=== PATIENT | female | born 1970 | race African-American/Black ===

== ENCOUNTER 2019-11-28 12:00 | Inpatient (IN) | payer OTHER ==
[~2019-11-28] VITALS: Ht 165.1 cm; Wt 80.1 kg
[2019-11-28] MEDS ORDERED: SODIUM CHLORIDE 0.9% 1000ML 1,000 ML IV SCH ×2 (12:30→13:30)
[2019-11-28] MEDS ORDERED: SODIUM CHLORIDE 0.9% 500ML 0 ML ONE (12:42)
[2019-11-28] MEDS ORDERED: ASPIRIN 81 MG CHEW TAB PO ONE (12:50)
[2019-11-28 12:56] LABS: STREPTOCOCCUS GRP A ANTIGEN NEGATIVE (NEGATIVE)
[2019-11-28 13:11] LABS: INFLUENZAE A&B ANTIGEN (RAPID) NEGATIVE (NEGATIVE)
--- NOTE | 2019-11-28 13:18 | NUR ---
incontinence care for stool and urine provided for patient.
[2019-11-28] MEDS ORDERED: AZITHROMYCIN 500MG/NS 250 ML 250 ML IV NR (13:30)
[2019-11-28 13:39] LABS: BASOPHILS # (AUTO) 0.1 (0.0-0.1); BASOPHILS % 0.5 % (0.0-1.0); EOSINOPHILS % 0.2 % (0.0-6.0); HEMOGLOBIN 10.8 g/dL (12.0-16.0); LYMPHOCYTES # (AUTO) 2.2 (1.0-3.2); LYMPHOCYTES % 13.2 % (18.0-39.1); MEAN CORPUSCULAR HEMOGLOBIN 24.7 pg (28-32); MEAN CORPUSCULAR HGB CONC 32.7 g/dL (31-35); MEAN CORPUSCULAR VOLUME 75.3 fL (81-99); MONOCYTES % 6.2 % (4.4-11.3); NEUTROPHILS % 79.3 % (38.7-80.0); PLATELET COUNT 505 x10e3/uL (140-360); RED BLOOD COUNT 4.38 x10e6/uL (3.6-5.1); RED CELL DISTRIBUTION WIDTH 25.7 % (11.7-14.4)
[2019-11-28 14:08] LABS: ANION GAP 20.7 mmol/L (8-16); CALCIUM 9.8 mg/dL (8.4-10.2); CREATININE, SERUM 5.48 mg/dL (0.57-1.11); POTASSIUM 5.7 mmol/L (3.5-5.1)
[2019-11-28] MEDS ORDERED: SODIUM CHLORIDE 0.9% 1000ML 1,000 ML IV STA ×4 (14:11→16:08)
[2019-11-28] MEDS ORDERED: SODIUM CHLORIDE 0.9% 1000ML 3,000 ML ONE (14:19)
[2019-11-28] MEDS: CEFTRIAXONE SOD 1 GM/NS 50 ML 50 ML IV NR (14:30)
[2019-11-28 14:34] LABS: CLARITY,URINE SL CLOUDY (CLEAR); COLOR,URINE YELLOW (YELLOW); KETONES,URINE NEGATIVE (NEGATIVE); LEUKOCYTE ESTERASE ,URINE NEGATIVE (NEGATIVE); NITRITE,URINE NEGATIVE (NEGATIVE); PROTEIN,URINE DIPSTICK 1+ (NEGATIVE)
[2019-11-28 14:35] LABS: BILIRUBIN,URINE NEGATIVE (NEGATIVE); URINE UROBILINOGEN 0.2 mg/dL (0.2 - 1)
[2019-11-28 14:41] LABS: BACTERIA,URINE RARE /HPF; EPITHELIAL CELLS,URINE FEW /LPF; RBC,URINE 0-5 /HPF (0-5); WBC,URINE (MAN) 0-5 /HPF (0-5)
--- NOTE | 2019-11-28 14:58 | Diagnostic Imaging Report ---
ADDENDUM #1 There is a left IJ central line with distal tip in SVC in appropriate position. Signed by: Bang Reyes MD on 11/28/2019 3:12 PM ORIGINAL REPORT EXAMINATION: CHEST SINGLE (PORTABLE) INDICATION: hypotension COMPARISON: None FINDINGS: AP view TUBES and LINES: Tracheostomy tube tube is in place. LUNGS/PLEURA: Lungs are well inflated. There is no evidence of pneumonia or pulmonary edema.. There is no pleural effusion or pneumothorax. HEART AND MEDIASTINUM: The cardiomediastinal silhouette is unremarkable. BONES AND SOFT TISSUES: No acute osseous lesion. Soft tissues are unremarkable. UPPER ABDOMEN: No free air under the diaphragm. IMPRESSION: No acute thoracic abnormality. Signed by: Bang Reyes MD on 11/28/2019 2:55 PM
[2019-11-28] MEDS ORDERED: CALCIUM GLUCONATE 10% INJ 4.65 MEQ in SODIUM CHLORIDE 0.9% 50ML 50 ML IV ONE (15:30)
[2019-11-28] MEDS ORDERED: ACETAMINOPHEN 650 MG SUPP PR NR (15:30)
--- NOTE | 2019-11-28 15:44 | NUR ---
Assessed to see if patient has still dry from last incontinence cleaning. Patient is still dry.
[2019-11-28] MEDS ORDERED: ACETAMINOPHEN325 M1 GT (16:26)
[2019-11-28] MEDS ORDERED: ASPIR 8181 MG GT (16:27)
[2019-11-28] MEDS ORDERED: ATORVASTATIN CA20 MG GT (16:28)
[2019-11-28] MEDS ORDERED: LISINOPRIL2.5 MG GT (16:30)
[2019-11-28] MEDS ORDERED: MILK OF MA2400 MG/10 GT (16:30)
[2019-11-28] MEDS ORDERED: HUMALOG100 UNIT/3 (16:33)
[2019-11-28] MEDS ORDERED: BISACODYL5 MG PO (16:33)
[2019-11-28 16:44] LABS: CREATINE KINASE MB 6.7 ng/mL (0-5.0)
[2019-11-28 16:49] LABS: ALBUMIN 2.3 g/dL (3.5-5.0); ALBUMIN/GLOBULIN RATIO 0.5 (0.8-2.0); CALCIUM 7.6 mg/dL (8.4-10.2); CREATININE, SERUM 4.65 mg/dL (0.57-1.11)
--- NOTE | 2019-11-28 18:14 | NUR ---
incontinence care of urine provided for patient. Patient also given fresh linens/gown.
[2019-11-28] MEDS ORDERED: SOD POLYSTYRENE SULFONATE SUSP 15 GM/60 ML BTL PO ONE (18:45)
--- NOTE | 2019-11-28 19:14 | NUR ---
report given to Esau CABEZAS
[2019-11-28] MEDS ORDERED: DEXTROSE 50% SYRINGE 50 ML IV PRN (20:45)
[2019-11-28] MEDS ORDERED: VANCOMYCIN 1GM/NS 250 ML 250 ML IV ONE (20:45)
[2019-11-28 21:00] VITALS: BP 109/74
[2019-11-28] MEDS ORDERED: ACETAMINOPHEN 325 MG TAB GT PRN (21:00)
[2019-11-28 21:15] VITALS: BP 109/74
[2019-11-28 21:30] VITALS: BP 90/41
[2019-11-28] MEDS ORDERED: CEFTRIAXONE SOD 1 GM/NS 50 ML 50 ML IV NR (21:30)
[2019-11-28 22:00] VITALS: BP 99/68
--- NOTE | 2019-11-28 22:32 | Consultation ---
DATE OF CONSULTATION: 11/28/2019 Pulmonary Medicine Consult REASON FOR REFERRAL: Impending organ dysfunction. HISTORY OF PRESENT ILLNESS: Ms. Manley is a 49-year-old female with evolving organ dysfunction. The patient presented to [facility] on November 28, 2019. The patient with altered mental status. The patient was having decreased responsiveness from baseline. There was hypotension that was reported and the patient with fever and possible diarrhea. The patient was brought to emergency room. In the emergency room, the patient was noted with findings including mild hypernatremia 154. Mild hyperkalemia 5.7. The patient with 16.4 white count, 33 hematocrit, 505 platelets. Creatinine 4.65 after recheck and improved from 5.5. Ferritin 1000. AST 232, ALT 407, CK 5416. Albumin 2.3. Blood pressure recently 73/49 in our facility, but after some fluid was improved. The patient at this point was placed on ventilator and consulted with evolving multiple organ dysfunction syndrome. PAST MEDICAL HISTORY: The patient with history of CVA and hemiparesis, PEG tube, tracheostomy, on tracheostomy collar. MEDICATIONS: Medication list reviewed per the chart record. ALLERGIES: NO KNOWN DRUG ALLERGIES. SOCIAL HISTORY: Unable to get, but no smoking, no drinking, no alcohol now. FAMILY HISTORY: Noncontributory to this syndrome. REVIEW OF SYSTEMS: Cannot get as she is altered. OBJECTIVE: VITAL SIGNS: The patient with 98.2 temperature, earlier was 101.7. Heart rate came down from 127 to 92. Respiratory rate 20. Blood pressure 104/87. GENERAL: Obtunded, now on ventilator. HEENT: Normocephalic, atraumatic. NECK: Supple. Tracheostomy in place. LUNGS: Bilateral air entry, limited. CARDIOVASCULAR: S1, S2. No murmurs, rubs, or gallops. ABDOMEN: Soft, nontender. EXTREMITIES: No clubbing. No cyanosis. There is no edema. INTEGUMENT: No rash or purpura. LABORATORY DATA: Labs reviewed per electronic record including urinalysis with no significant pyuria in it. Chest x-ray, clear lung boss reported. IMPRESSION AND PLAN: 1. Hypotension, severe sepsis existing prior to admission. 2. Acute renal failure. 3. Encephalopathy, toxic metabolic. 4. Underlying cerebrovascular accident and hemiparesis. Possible dementia. 5. Hyperlipidemia. 6. Hypertension. 7. Anemia. 8. Thrombocytosis: 9. Leukocytosis. 10. Hypernatremia. 11. Hyperkalemia, better. 12. Elevated LFTs. 13. Dysphagia, status post PEG tube. 14. Bztnn-xl-vxeekam respiratory failure, now on ventilator. 15. Tracheostomy status. 16. Severe hypoproteinemia. The patient was given ventilator due to workup breathing at 20/450/50/5. Continue tracheostomy in place. Check for etiology of presumed infection. Rule out viral etiologies. Rule out liver process. Resume tube feeds later when stable. We will give some IV fluids for the initial rhabdomyolysis. Check renal ultrasound. Empiric antibiotics. Greater than 30 minutes in direct care and coordination on this date. Multiple evaluation. Thank you very much, Dr. Portillo for this consult. Please call for questions. Vahe Frazier MD GMN/MODL /[id number]
[2019-11-28] MEDS: SODIUM CHLORIDE 0.9% 1000ML 1,000 ML IV SCH (22:38)
[2019-11-28] MEDS: HEPARIN SOD (PORCINE) 5,000 UNIT/ML VIAL SC SCH (22:45)
[2019-11-28] MEDS: CEFEPIME 1GM/NS 0.9% 50 ML 50 ML IV SCH (22:45)
[2019-11-28] MEDS: ATORVASTATIN 20 MG TAB GT SCH (22:45)
[2019-11-28 23:00] VITALS: BP 109/73
[2019-11-28] MEDS: INSULIN REGULAR, HUMAN 100 UNIT/1 ML 3ML VIAL SQ SCH (23:30)
[2019-11-29] VITALS (24 sets, daily range): BP systolic 93–151; BP diastolic 55–92
--- NOTE | 2019-11-29 00:12 | History and Physical ---
CHIEF COMPLAINT: Altered mental status, fever. HISTORY OF PRESENT ILLNESS: This is a 49-year-old female, who presented from a [facility] due to underlying fever and worsening condition. The patient is currently unresponsive and I am not sure if this is her baseline. Information being obtained is very limited that is only based on the ER and nursing staff. Apparently, the patient lives in a [facility], who apparently had a prior CVA and is on a trach. I do not know the patient's overall mental status. She did present to us with worsening tachypnea, tachycardia, and hypotensive. She is found to be febrile of 101.7. The patient was volume resuscitated, given fluid in the emergency room and had a central line placed and was sent to the ICU for further management and care. The patient was evaluated in the ICU. She is currently on the mechanical ventilator. REVIEW OF SYSTEMS: Unable to obtain. The patient is not responsive. ALLERGIES: NO KNOWN DRUG ALLERGIES. MEDICATIONS: Lisinopril, bisacodyl, insulin, aspirin, atorvastatin, and acetaminophen. PAST MEDICAL HISTORY: Able to be obtained, she has a history of CVA, she is on a trach. PAST SURGICAL HISTORY: We do know she has a tracheostomy. FAMILY HISTORY: Unknown. SOCIAL HISTORY: Unknown. She does live in a [facility]ci. PHYSICAL EXAMINATION: VITAL SIGNS: Temperature is 98.8, pulse is 106, respiratory rate is 15 on a mechanical ventilator, blood pressure is 99/60, pulse ox 100% on mechanical ventilator. GENERAL: Not in acute distress, alert and oriented x3. Cooperative on examination. She is currently on a mechanical ventilator. HEENT: Head is normocephalic, atraumatic. Eyes; pupils are equal, round, and reactive to light bilaterally. NECK: Supple. Good range of motion. Has tracheostomy. PULMONARY: Has a tracheostomy: On mechanical ventilator. CARDIOVASCULAR: Positive S1 and S2. No murmurs, rubs, or gallops appreciated. ABDOMEN: Soft, nondistended, nontender to palpation. Bowel sounds present. MUSCULOSKELETAL: Unable to assess. NEUROLOGIC: Unable to assess. SKIN: Intact. Warm to touch. Good cap refill. PSYCHIATRIC: Unable to assess. EXTREMITIES: No edema. Good range of motion throughout. LABORATORY DATA: Labs show white count was 16.3, hemoglobin 10.8, hematocrit 33, MCV 75, platelets of 505,000. Coagulation, PTT 26. D-dimer was 8.32. Chemistry; sodium 154, potassium 5, chloride 125, bicarbonate 19, anion gap of 15, BUN was 91, now 83, creatinine was 5.48, glucose is 125, lactic acid 1.7, calcium 7.6, ferritin is 1049. LFTs show total bilirubin was 0.3, AST 32, ALT 407, alkaline phosphatase 83. CK is , CK-MB is 0.70, troponin 0.506. Albumin was 2.3. Procalcitonin is pending. Urinalysis negative. Serologies, coronavirus and respiratory panel is all pending. MICROBIOLOGY: Blood cultures x2 ordered. IMAGING STUDIES: Chest x-ray is negative. IMPRESSION: 1. Acute on chronic respiratory failure with a tracheostomy, now on a mechanical ventilator. 2. Septic shock with hypotension and lactic acidosis, etiology unknown. 3. Acute kidney injury secondary to dehydration. 4. Hypernatremia secondary to volume depletion. 5. Rhabdomyolysis. PLAN: At this time, the patient is currently minimally responsive on sedation on a mechanical ventilator. Pulmonary Critical Care was consulted. She does have a central line, does not need any IV pressors at the current moment. She is on broad-spectrum IV antibiotic therapy. Blood cultures have been collected include UA, which seems to be negative. ID was consulted. As for her acute kidney injury, she has received several boluses of normal saline in the emergency room. We will continue with maintenance IV fluids, get repeat labs in the morning. Monitor renal function and electrolytes. As for hypernatremia, at this time we will continue with volume resuscitation with normal saline and if it stable tomorrow, we will consider adding D5W to correct the sodium. As for the rhabdomyolysis, her CK was found to be elevated. She is currently on aggressive IV fluid hydration. Repeat CK in the morning. We will also repeat other chemistries, Chem-14 and CBC in the morning as well as the CK level. She was found to have elevated D-dimer, but right now we are unable to perform a CTA of the chest and which we will go ahead and treat her with DVT prophylaxis and once her renal function improves they will be get a CTA of the chest. I did discuss this with Pulmonary. She does have mild elevation of troponin, but we will go ahead and downtrend it and monitor this very closely. Consultants; ID, pulmonary and Cardiology. MD MERISSA Goldsmith/NEGAR /[id number]
[2019-11-29] MEDS: SODIUM CHLORIDE 0.9% 1000ML 1,000 ML IV SCH (05:18)
[2019-11-29 05:21] LABS: BASOPHILS # (AUTO) 0.1 (0.0-0.1); BASOPHILS % 0.6 % (0.0-1.0); EOSINOPHILS # (AUTO) 0.2 (0.0-0.4); HEMATOCRIT 27.2 % (34.2-44.1); HEMOGLOBIN 8.5 g/dL (12.0-16.0); LYMPHOCYTES # (AUTO) 1.3 (1.0-3.2); LYMPHOCYTES % 8.8 % (18.0-39.1); MEAN CORPUSCULAR HEMOGLOBIN 23.9 pg (28-32); MEAN CORPUSCULAR HGB CONC 31.3 g/dL (31-35); MEAN CORPUSCULAR VOLUME 76.4 fL (81-99); MONOCYTES # (AUTO) 0.7 (0.2-0.8); MONOCYTES % 4.5 % (4.4-11.3); NEUTROPHILS # (AUTO) 12.9 (2.1-6.9); NEUTROPHILS % 84.6 % (38.7-80.0); PLATELET COUNT 331 x10e3/uL (140-360); RED BLOOD COUNT 3.56 x10e6/uL (3.6-5.1); RED CELL DISTRIBUTION WIDTH 25.6 % (11.7-14.4)
[2019-11-29 05:51] LABS: ALBUMIN 2.4 g/dL (3.5-5.0); ALBUMIN/GLOBULIN RATIO 0.5 (0.8-2.0); ANION GAP 15.4 mmol/L (8-16); CALCIUM 8.3 mg/dL (8.4-10.2); CREATININE, SERUM 2.22 mg/dL (0.57-1.11); POTASSIUM 4.4 mmol/L (3.5-5.1)
[2019-11-29] MEDS: INSULIN REGULAR, HUMAN 100 UNIT/1 ML 3ML VIAL SQ SCH ×3 (06:00→18:00)
[2019-11-29 06:24] LABS: MAGNESIUM 2.6 MG/DL (1.3-2.1); PHOSPHORUS 5.2 MG/DL (2.3-4.7)
[2019-11-29] MEDS ORDERED: SODIUM CHLORIDE 0.45% 1,000 ML ONE (06:51)
[2019-11-29] MEDS: SODIUM CHLORIDE 0.45% 1,000 ML IV SCH ×2 (07:23→18:13)
[2019-11-29 08:23] LABS: INR 1.28; PARTIAL THROMBOPLASTIN TIME 28.6 seconds (23.8-35.5); PROTHROMBIN TIME 16.8 seconds (11.9-14.5)
[2019-11-29 08:27] LABS: CREATINE KINASE MB 8.6 ng/mL (0-5.0)
[2019-11-29] MEDS: HEPARIN SOD (PORCINE) 5,000 UNIT/ML VIAL SC SCH ×2 (08:54→21:59)
[2019-11-29] MEDS: FAMOTIDINE 20 MG TAB PO SCH (09:00)
[2019-11-29] MEDS: ASPIRIN 81 MG CHEW TAB GT SCH (09:00)
--- NOTE | 2019-11-29 10:39 | Diagnostic Imaging Report ---
EXAMINATION: CHEST SINGLE (PORTABLE) INDICATION: ^chf ^[id number] ^[id number] COMPARISON: 11/28/2019 FINDINGS: AP view TUBES and LINES: Stable tracheostomy tube and left internal jugular central venous cancer. LUNGS: Lungs are well inflated. Mild central vascular congestion and interstitial edema. Mildly increased bibasilar subsegmental atelectasis. PLEURA: No pneumothorax. Suspected trace bilateral pleural effusions. HEART AND MEDIASTINUM: The cardiomediastinal silhouette is unremarkable. BONES AND SOFT TISSUES: No acute osseous lesion. Soft tissues are unremarkable. UPPER ABDOMEN: No free air under the diaphragm. IMPRESSION: Mild central pulmonary vascular congestion and mild interstitial edema. Suspected trace bilateral pleural effusions with adjacent mild compressive atelectasis. Signed by: Dr. Alvarado Rosario MD on 11/29/2019 10:36 AM
[2019-11-29] MEDS: CEFTRIAXONE SOD 1 GM/NS 50 ML 50 ML IV NR (12:34)
[2019-11-29] MEDS ORDERED: DEXTROSE 5% 1,000 ML IV SCH (13:45)
--- NOTE | 2019-11-29 13:45 | NUR ---
PATIENT RESIDES AT [facility] AT [facility]. SHE IS TRACH ON TRACH COLLAR AT FACILITY. SHE ARRIVED UNRESPONSIVE AND IS ON COVID-19 PRECAUTIONS. INFORMATION OBTAINED VIA MEDICAL HX. PATIENT IS SINGLE. HER PCP IS DR. Kristopher NULL
--- NOTE | 2019-11-29 14:21 | NUR ---
Pulmonary Medicine Jake cover DATE 11/29/2019 SUBJECTIVE: TRACHEOSTOMY IN PLACE STILL ON VENTILATOR 18/450/40/5 cxr with mild venous congestion, mostly clear UOP significant, Na increased to 162 REVIEW OF SYSTEMS: Cannot get as she is altered. OBJECTIVE: VITAL SIGNS: reviewed per EMR GENERAL: Obtunded, on ventilator. HEENT: Normocephalic, atraumatic. NECK: Supple. Tracheostomy in place. LUNGS: Bilateral air entry, limited. CARDIOVASCULAR: S1, S2. No murmurs, rubs, or gallops. ABDOMEN: Soft, nontender. EXTREMITIES: No clubbing. No cyanosis. no edema. INTEGUMENT: No rash or purpura. LABORATORY DATA: 162 NA,4.4 k, cr 2.22. wbc 15, hct 27, plt 331. Chest x-ray, clear lung boss reported. IMPRESSION AND PLAN: 1. Hypotension, severe sepsis existing prior to admission. 2. Acute renal failure. --evolving hypernatremia NOS. 3. Encephalopathy, toxic metabolic. 4. Underlying cerebrovascular accident and hemiparesis. Possible dementia. 5. Hyperlipidemia. 6. Hypertension. 7. Anemia. 8. Thrombocytosis 9. Leukocytosis. 10. Hypernatremia. 11. Hyperkalemia, better. 12. Elevated LFTs. 13. Dysphagia, status post PEG tube. 14. Tvabt-iz-vshqljv respiratory failure, now on ventilator. 15. Tracheostomy status. 16. Severe hypoproteinemia. Patient should continue ventilator for now. Consider weaning Serial electrolytes More water loading Neuro checks per designated. Follow up for etiology of presumed infection. Rule out viral etiologies. Rule out liver process. Resume tube feeds [id number] up rhabdomyolysis. get renal ultrasound. Empiric antibiotics.
--- NOTE | 2019-11-29 16:19 | Progress Note ---
DATE: 11/29/2019 SUBJECTIVE: The patient is still on the mechanical ventilator with her tracheostomy. She is on 22 L of oxygen. She is saturating at 100%. No changes overnight. Blood pressure is much improved. She was afebrile overnight. LABORATORY DATA: Labs show white count 15.2, hemoglobin 8.5, hematocrit 27.2, platelets of 331. Coagulation, PT 16, INR 1.28, PTT 28.6. D-dimer is 8.32. Sodium 162, potassium 4.4, chloride 129, bicarbonate 22, anion gap of 15, BUN is 71, creatinine is 2.22, glucose 104, calcium 8.3, phosphorus 5.2, magnesium 2.6, total bilirubin was 0.4. AST 257, ALT 370. CK still elevated at 8503, troponins down trended to 0.167. Albumin 2.4. Procalcitonin is pending. Urinalysis negative. Serologies, respiratory panel all of it is negative, but pending melendrez virus PCR. Microbiology none. IMAGING STUDIES: Chest x-ray this morning shows mild central pulmonary vascular congestion with mild interstitial edema, suspected trace bilateral pleural effusions with adjacent mild compressive atelectasis. PHYSICAL EXAMINATION: VITAL SIGNS: Temperature is 99.6, pulse 97, respiratory rate is 18, blood pressure is 102/57, pulse ox 100% on mechanical ventilator. GENERAL: She is currently sedated on mechanical ventilation HEENT: Head normocephalic, atraumatic. Eyes; pupils are round bilaterally. PULMONARY: She has a tracheostomy. Mechanical ventilation. Good inspiratory effort. No crackles. No rales. CARDIOVASCULAR: Positive S1, S2. No murmurs, rubs, or gallops. ABDOMEN: Soft, nondistended, nontender to palpation. Bowel sounds present. MUSCULOSKELETAL: Unable to assess. NEUROLOGICAL: Unable to assess. SKIN: Intact. Warm to touch. Good cap refill. PSYCHIATRIC: Unable to assess. EXTREMITIES: No edema. Good range of motion throughout. IMPRESSION: 1. Acute over chronic respiratory failure with tracheostomy, now on a mechanical ventilator. 2. Septic shock with hypotension, lactic acidosis, etiology unknown. 3. Acute kidney injury secondary to dehydration, now downtrending creatinine level. 4. Hypernatremia secondary to volume depletion. 5. Rhabdomyolysis. PLAN: At this time, the patient will maintain on a mechanical ventilator as well as on sedation, being managed by Pulmonary Critical Care. Continue with broad-spectrum IV antibiotic therapy. Monitor blood cultures and ID have been consulted. Renal function downtrending as well her electrolytes were stable except for the elevated sodium level of 162. Pulmonary Critical Care changed the fluids to half-normal saline. We will continue with half-normal saline for now and monitor the sodium level in the morning. The patient is still severely dehydrated, has good urine output, less likely to be DI, considering that her renal function is downtrending and good urine output noted. In terms of the rhabdomyolysis, CK still elevated. Continue with aggressive IV fluid hydration. She will need a CTA of the chest once her renal function improves. She is on DVT prophylaxis. Tube feeds for nutrition. CONSULTANTS INVOLVED: ID, Pulmonary and Cardiology. The patient is otherwise at baseline with no changes. We will transfer our services to Dr. Christian Castaneda as this is a patient at [facility], which I was not aware of prior to this admission. I did discuss this with Dr. Ames already as well. MD MERISSA Goldsmith/NEGAR /[id number]
--- NOTE | 2019-11-29 16:30 | Consultation ---
DATE OF CONSULTATION: HISTORY OF PRESENT ILLNESS: This is an unfortunate young 49-year-old female with a history of cerebrovascular accident, status post tracheostomy. The patient is a resident at [facility]. No family is at bedside and the patient is relatively unresponsive. Due to the concern for possible infection with coronavirus, physical examination was not performed. This was also used to preserve PPE. REVIEW OF SYSTEMS: Unable to be obtained. PAST MEDICAL HISTORY: 1. History of cerebrovascular accident. 2. Hyperlipidemia. 3. Hypertension. PAST SURGICAL HISTORY: Tracheostomy. FAMILY HISTORY: Unknown. SOCIAL HISTORY: Unknown. Lives in a correction. ALLERGIES: NO KNOWN DRUG ALLERGIES. MEDICATIONS: See medications reconciliation form. PHYSICAL EXAMINATION: VITAL SIGNS: Temperature is 99.6, heart rate is 103, respirations are 18, blood pressure is 138/86, O2 saturation is 100% on mechanical ventilation with a FiO2 rate of 20%. GENERAL: She is a chronically ill-appearing young woman, in no apparent distress, being mechanically ventilated via tracheostomy. LUNGS: Respirations appear symmetric. She is in no apparent distress. CARDIAC: Physical cardiopulmonary examination was not performed due to concern for the coronavirus and to preserve PPE. LABORATORY DATA: Reviewed. Troponin was minimally elevated at 0.537, has trended down to normal. Her CK is 8503, CK-MB is 8.6. Sodium 162, creatinine 2.2. AST is 217, ALT is 370. A 12-lead electrocardiogram impression telemetry monitoring shows sinus tachycardia. IMPRESSION: 1. Cerebrovascular accident, status post tracheostomy. 2. Acute respiratory failure with hypoxemia. 3. Sepsis. 4. Acute on chronic kidney disease. 5. History of hypertension. 6. Anemia. 7. Hypernatremia. 8. Rhabdomyolysis. 9. Acute on chronic liver disease. 10. Type 2 myocardial infarction. RECOMMENDATION: Rule out coronavirus. Continue sepsis treatment per primary team. Wean ventilatory settings. Obtain full history from family members. We will check an echocardiogram. I do not suspect acute coronary syndrome at this point in time. Once she improves, she may need an ischemic evaluation in the form of a stress test. Ranjan Brito DO BM/MODL /[id number]
[2019-11-29 16:40] LABS: CREATININE,URINE RANDOM 89.52 mg/dL (47-110)
--- NOTE | 2019-11-29 17:40 | Consultation ---
DATE OF CONSULTATION: REASON FOR CONSULTATION: Shortness of breath, cough, and fever. HISTORY OF PRESENT ILLNESS: This patient who is a 49-year-old female who is coming to us from [facility]. She does have history of CVA, hemiparesis, PEG tube placement, tracheostomy, very ill and chronically ill patient, comes in with cough, fever, and chills. Developmental status, there is no family to provide any further information, but history was taken mainly from the chart and also by reviewing the records from [facility]. The patient has been on ventilator for a prolonged time. She has a tracheostomy. She is alert, but noncommunicative. PAST MEDICAL HISTORY: As above. PAST SURGICAL HISTORY: As above. ALLERGIES: NKA. SOCIAL HISTORY: From senior living. FAMILY HISTORY: Could not be obtained. LABORATORY DATA: When she first came, she had a temperature of 101.7. There is none since then. Her cultures still pending. White count 15.25, hemoglobin 8. Sodium 162, potassium 4.4, creatinine of 2.2. When she first came, creatinine was 4.65. Liver enzyme was elevated 217. Respiratory panel is pending. Influenza A and B are negative. COVID-19 is still pending. The patient was started on ceftriaxone. She has received cefepime. Chest x-ray, which was done today shows pulmonary congestion, interstitial edema. PHYSICAL EXAMINATION: GENERAL: Alert, noncommunicative. VITAL SIGNS: Stable, currently afebrile. HEENT: She is not icteric. NECK: Supple. CHEST: A few crackles. HEART: S1 and S2. No murmur. ABDOMEN: Soft. Bowel sounds present. No tenderness. EXTREMITIES: No edema. SKIN: No rash. IMPRESSION: 1. Mobbk-gf-znwmuum respiratory failure. I think the patient probably has aspiration pneumonia with a component of fluid overload. a. Since we are in COVID-19 pandemic, we will check her. b. In the meantime, we will keep her on isolation. Since she has trach, we will do a negative pressure isolation. Recheck CBC. Recheck Chem panel. 2. Chronic kidney disease. 3. Complicated medical history: History of hypertension, history of toxic brain injury, history of cerebrovascular accident, history of hypertension, history of anemia, thrombocytopenia, elevated liver enzyme probably fluid overload, dysphagia status post PEG tube placement, status post tracheostomy, hyponatremia. Discussed with the medical team. We will follow with you. MD LEONEL Rodrigues/NEGAR /[id number]
[2019-11-29] MEDS: CEFEPIME 1GM/NS 0.9% 50 ML 50 ML IV SCH (21:56)
[2019-11-29] MEDS: ATORVASTATIN 20 MG TAB GT SCH (21:56)
[2019-11-30] VITALS (23 sets, daily range): BP systolic 111–163; BP diastolic 65–98
[2019-11-30] MEDS: SODIUM CHLORIDE 0.45% 1,000 ML IV SCH ×3 (02:14→23:30)
[2019-11-30 05:17] LABS: BASOPHILS # (AUTO) 0.1 (0.0-0.1); BASOPHILS % 0.8 % (0.0-1.0); EOSINOPHILS # (AUTO) 0.3 (0.0-0.4); HEMATOCRIT 25.3 % (34.2-44.1); HEMOGLOBIN 8.1 g/dL (12.0-16.0); LYMPHOCYTES # (AUTO) 2.1 (1.0-3.2); LYMPHOCYTES % 13.3 % (18.0-39.1); MEAN CORPUSCULAR VOLUME 75.1 fL (81-99); MONOCYTES # (AUTO) 0.9 (0.2-0.8); MONOCYTES % 5.7 % (4.4-11.3); NEUTROPHILS # (AUTO) 12.2 (2.1-6.9); NEUTROPHILS % 77.9 % (38.7-80.0); PLATELET COUNT 313 x10e3/uL (140-360); RED BLOOD COUNT 3.37 x10e6/uL (3.6-5.1); RED CELL DISTRIBUTION WIDTH 25.2 % (11.7-14.4)
[2019-11-30 05:38] LABS: ANION GAP 8.4 mmol/L (8-16); BLOOD UREA NITROGEN 44 mg/dL (7-26); BUN/CREATININE RATIO 43 (6-25); CALCIUM 8.4 mg/dL (8.4-10.2); CARBON DIOXIDE 24 mmol/L (22-29); CHLORIDE 129 mmol/L (98-107); CREATININE, SERUM 1.02 mg/dL (0.57-1.11); EST GLOMERULAR FILTRATION RATE > 60 ML/MIN (60-); GLUCOSE 95 mg/dL (74-118); POTASSIUM 3.4 mmol/L (3.5-5.1); SODIUM 158 mmol/L (136-145)
[2019-11-30] MEDS: INSULIN REGULAR, HUMAN 100 UNIT/1 ML 3ML VIAL SQ SCH ×4 (05:52→18:00)
[2019-11-30 07:53] LABS: CREATINE KINASE MB 1.6 ng/mL (0-5.0)
[2019-11-30] MEDS: HEPARIN SOD (PORCINE) 5,000 UNIT/ML VIAL SC SCH ×2 (09:00→21:00)
[2019-11-30] MEDS: ASPIRIN 81 MG CHEW TAB GT SCH (09:00)
[2019-11-30] MEDS: FAMOTIDINE 20 MG TAB PO SCH (09:00)
--- NOTE | 2019-11-30 15:01 | Diagnostic Imaging Report ---
Abdominal ultrasound. History: Abnormal LFTs. Comparison: None available. Discussion: Transverse and longitudinal images of the abdomen were obtained demonstrating a liver of increased size but normal echogenicity measuring 17.2 cm in length. The portal vein is patent with hepatopetal flow and is within normal limits measuring 5 mm in diameter. The biliary tree is within normal limits with the common bile duct measuring 5 mm in diameter. The gallbladder is contracted without evidence of stones, wall thickening, or pericholecystic fluid. The sonographic Martinez's sign was negative. Left kidney was not visible, obscured by overlying bowel gas. The right kidney is normal in size and echogenicity without evidence of hydronephrosis, stones, or mass. The right kidney measures 10.7 cm in length. The spleen is normal in size and appearance measuring 10.0 cm in length. The pancreatic head and body are visualized and are normal in appearance. The abdominal aorta and IVC are within normal limits. There is no evidence of free intra-abdominal fluid. Right pleural effusion is incidentally noted. IMPRESSION: 1. Mild hepatomegaly without focal hepatic abnormality. 2. Left kidney is not visible. Otherwise unremarkable abdominal ultrasound. Signed by: James Vo on 11/30/2019 2:57 PM
--- NOTE | 2019-11-30 15:41 | Progress Note ---
DATE: SUBJECTIVE: Ms. Manley remains in intensive care unit. A 49[facility]-old [facility], history of CVA, noncommunicative, hemiparesis, status post PEG tube, status post tracheostomy, comes in with fever, concerned about aspiration pneumonia on antibiotic, so far blood cultures are negative. LABORATORY DATA: Her white count is hovering around 15,000, hemoglobin 8.2. Her respiratory panel is negative. Influenza is negative. Her COVID-19 is still pending. Sodium 158, creatinine 1.02. IMPRESSION: I think, the patient with aspiration pneumonia continues. She is still having high white count. I am going to change her to meropenem 1 g q.8h. Discontinue cefepime. Continue with supportive care. Other medical problem, history of stroke, noncommunicative, history of trach, history of the feeding tube. We will follow. MD LEONEL Rodrigues/NEGAR /[id number]
[2019-11-30] MEDS ORDERED: MEROPENEM 1GM 100 ML IV SCH (17:00)
--- NOTE | 2019-11-30 17:09 | NUR ---
Nutrition Intervention Note RD Recommendation(s) for Physician: - Recommend TF change to Vital AF with goal rate of 55 ml/hr (to provide 1584 kcal and 99 gm protein). - Water flushes and fluid management per MD. Plan of Care: RD following, monitoring for tolerance and adequacy Nutrition reason for involvement: TF on admit RD Assessment 11/29: 49 YOF admitted from [facility] for chronic respiratory failure with chronic trach on vent and PEG on admit. Pt seen today per TF on admit. Pt currently on Jevity 1.2 at 20 ml/hr with 250 ml water flushes q 4 hrs 2/2 hypernatremia. Unable to obtain hx or complete malnutrition physical exam per current Covid PUI protocol. Called to speak with RN regarding TF rec's x 2, RN with pt. Chart reviewed. Will continue to monitor. Principal Problems/Diagnoses: chronic respiratory failure, kidney failure PMH: HTN, toxic brain injury, HTN, CVA, hemiparesis, + trach on vent, PEG GI: abd soft, non tender, + BS Skin: R buttock stage II PU Labs: 11/29: Na 158, K 3.4, BUN 44, Cr 1.02, Gluc 95, Ca 8.4 Meds: pepcid, lipitor, abx, insulin Ht: 65 in Wt: 167.19 lb BMI: 27.8 kg/m2 IBW: 125 lb Malnutrition Evaluation (11/30/19) The patient does not meet criteria for a specified degree of malnutrition at this time. Will re-evaluate at follow-up as appropriate. Unable to assess. Nutrition Prescription (Diet Order): Jevity 1.2 at 20 ml/hr Estimated Nutritional Needs: 7331-7262 calories/day (18-22 kcal/kg CBW) 91-137 g protein/day (1.2-1.8 g pro/kg CBW)- chronic trach on vent Diet Adequacy: Not meeting calorie needs, Not meeting protein needs Diet Tolerance: N/A Diet Education Needs Assessment: Diet education not indicated, pt TF dependant. Nutrition Care Level: moderate Nutrition Diagnosis: Inadequate energy and protein intake related to current TF regimen with PEG and trach on vent upon admit as evidenced by not meeting needs. Goal: Patient will meet 75-100% of estimated needs by follow up Progress: N/A Interventions: - Composition, Rate, Route, IVF, Prescription medications, Recommended Modifications, Collaboration with other providers Monitoring/Evaluation: -Total energy intake, Total protein intake, Formula/Solution, Prescription medication Signed: Katlin Nazario RD, LD, [facility]
--- NOTE | 2019-11-30 19:30 | NUR ---
Received patient hemodynamically stable
--- NOTE | 2019-11-30 20:13 | Consultation ---
DATE OF CONSULTATION: Critical Care Consultation REASON FOR CONSULT: ICU management. CHIEF COMPLAINT: Respiratory failure and shortness of breath. HISTORY OF PRESENT ILLNESS: Ms. Manley is a 49-year-old female, well known to me from [facility], as I have been seeing her at [facility]. She came in with decreased responsiveness, was hypotensive and fever. The patient was admitted for ruling out COVID. She was hypernatremic on admission with sodium of 158. The patient was started on IV hydration and ventilator support was continued. When she came in initially, her lactic acid has been normal since she has been here. Chest x-ray initially showed evidence of no acute pneumonia. When she came in, she had a fever of 101.8. REVIEW OF SYSTEMS: Unable to elicit any, as the patient is noncommunicative. PAST MEDICAL HISTORY: PEG tube, CVA, hemiparesis, tracheostomy, gastrostomy, noncommunicative. FAMILY AND SOCIAL HISTORY: Lives at residential. Unable to know whether she smokes or not. PHYSICAL EXAMINATION: VITAL SIGNS: Temperature 99.4, pulse of 106, blood pressure 163/89, T-max of 101.8. HEENT: Normocephalic. She is noncommunicative after tracheostomy. CHEST: Clear. HEART: S1 and S2 audible. ABDOMEN: Soft. EXTREMITIES: No pedal edema. LABORATORY DATA: Reviewed. ASSESSMENT/PLAN: Ms. Manley is a 49-year-old female, well known to me from [facility]. The patient is noncommunicative, has a trach and a PEG. She is vent-dependent, unable to be weaned, came in because of hypotension, likely due to dehydration. The patient's chest x-ray is not showing any evidence of pneumonia. She is not on any vasopressors. Her renal failure has improved. Current problems: 1. Acute kidney injury. 2. Hypernatremia. 3. Respiratory failure, chronic. 4. Possible tracheobronchitis, PEG tube status, history of stroke with hemiparesis. The patient is noncommunicative at baseline. PLAN: Continue the patient on antibiotics as recommended by ID consultants. COVID-19 has to be ruled out because of high-grade fever. Hypotension was due to dehydration. The patient is on IV hydration. Management of hypernatremia per Dr. Portillo. Thank you for this consult. Critical care time spent 45 minutes. MD GAURAV Sanchez/NEGAR /[id number]
[2019-11-30] MEDS: ATORVASTATIN 20 MG TAB GT SCH (21:00)
[2019-11-30] MEDS: MEROPENEM 1GM 100 ML IV SCH (21:00)
[2019-12-01] VITALS (25 sets, daily range): BP systolic 111–177; BP diastolic 61–104
--- NOTE | 2019-12-01 02:00 | NUR ---
Patient given a full bath, dirty linens changed
[2019-12-01] MEDS: SODIUM CHLORIDE 0.45% 1,000 ML IV SCH ×2 (02:13→10:43)
[2019-12-01] MEDS: MEROPENEM 1GM 100 ML IV SCH ×3 (05:17→21:00)
[2019-12-01] MEDS: INSULIN REGULAR, HUMAN 100 UNIT/1 ML 3ML VIAL SQ SCH ×4 (05:17→18:00)
[2019-12-01 05:35] LABS: BASOPHILS # (AUTO) 0.1 (0.0-0.1); BASOPHILS % 0.6 % (0.0-1.0); EOSINOPHILS # (AUTO) 0.2 (0.0-0.4); EOSINOPHILS % 2.6 % (0.0-6.0); HEMATOCRIT 23.9 % (34.2-44.1); HEMOGLOBIN 7.5 g/dL (12.0-16.0); LYMPHOCYTES # (AUTO) 1.6 (1.0-3.2); LYMPHOCYTES % 18.2 % (18.0-39.1); MEAN CORPUSCULAR HGB CONC 31.4 g/dL (31-35); MEAN CORPUSCULAR VOLUME 76.6 fL (81-99); MONOCYTES # (AUTO) 0.4 (0.2-0.8); NEUTROPHILS # (AUTO) 6.4 (2.1-6.9); NEUTROPHILS % 73.1 % (38.7-80.0); PLATELET COUNT 263 x10e3/uL (140-360); RED BLOOD COUNT 3.12 x10e6/uL (3.6-5.1); RED CELL DISTRIBUTION WIDTH 24.9 % (11.7-14.4)
[2019-12-01 06:00] LABS: ANION GAP 11.3 mmol/L (8-16); BLOOD UREA NITROGEN 28 mg/dL (7-26); BUN/CREATININE RATIO 39 (6-25); CALCIUM 8.5 mg/dL (8.4-10.2); CARBON DIOXIDE 24 mmol/L (22-29); CHLORIDE 123 mmol/L (98-107); CREATININE, SERUM 0.71 mg/dL (0.57-1.11); EST GLOMERULAR FILTRATION RATE > 60 ML/MIN (60-); GLUCOSE 104 mg/dL (74-118); POTASSIUM 3.3 mmol/L (3.5-5.1); SODIUM 155 mmol/L (136-145)
[2019-12-01 08:37] LABS: ANISOCYTOSIS MODERATE; EOSINOPHILS % (MANUAL) 1 % (0-7); LYMPHOCYTES % (MANUAL) 14 % (19-48); MICROCYTOSIS SLIGHT; MONOCYTES % (MANUAL) 3 % (3.4-9.0); NEUTROPHILS % (MANUAL) 82 % (40-74)
[2019-12-01 08:39] LABS: HYPOCHROMASIA SLIGHT; PLATELET ESTIMATE ADEQUATE; PLATELET MORPHOLOGY COMMENT NORMAL; RBC MORPHOLOGY COMMENT NORMAL
[2019-12-01] MEDS: FAMOTIDINE 20 MG TAB PO SCH (10:00)
[2019-12-01] MEDS: HEPARIN SOD (PORCINE) 5,000 UNIT/ML VIAL SC SCH ×2 (10:00→21:00)
[2019-12-01] MEDS: ASPIRIN 81 MG CHEW TAB GT SCH (10:00)
--- NOTE | 2019-12-01 14:59 | NUR ---
LAB RESULTS STILL NOT IN COMPUTER FOR COVID FINDINGS. UNABLE TO FAX CLINICALS WITHOUT THE RESULTS.
--- NOTE | 2019-12-01 15:16 | NUR ---
SPOKE WITH CHARLEY AT [facility] PT WAS RECEIVED FROM [facility] IN [place] FROM ANOTHER FACILITY 1 WEEK PRIOR TO SENDING HERE HER EMERGENCY CONTACT IS [facility] [phone]
--- NOTE | 2019-12-01 16:31 | Progress Note ---
DATE: SUBJECTIVE: Ms. Vineet Lagunas remains in intensive care unit comfortable. There are no new changes. Discussed with Pulmonary. REVIEW OF SYSTEMS: There is nothing new. The patient is noncommunicative, status post trach, status post PEG. Her blood cultures are negative. Her COVID-19 is still pending. Respiratory viral PCR is negative. PHYSICAL EXAMINATION: GENERAL: She is noncommunicative. VITAL SIGNS: Stable. Afebrile. HEENT: She is not icteric. NECK: Supple. CHEST: Few crackles. COR: ABDOMEN : Soft. IMPRESSION: Aspiration pneumonia, clinically getting better, on meropenem. PLAN: 1. Finish 7 days of IV antibiotic. 2. Acute kidney injury, resolved. Hyponatremia being corrected. 3. Respiratory failure, chronic. Continue with supportive care. We are waiting on COVID-19. MD LEONEL Rodrigues/MODL /[id number]
[2019-12-01] MEDS: ATORVASTATIN 20 MG TAB GT SCH (21:00)
--- NOTE | 2019-12-01 21:27 | Progress Note ---
DATE: 12/01/2019 Cardiology Progress Note SUBJECTIVE: No major events overnight. OBJECTIVE: VITAL SIGNS: Temperature 99.2, pulse 71, respiratory rate 18, blood pressure 122/72, saturating 100% on mechanical ventilation. GENERAL: Tracheostomy, non-communicative. CARDIOVASCULAR: Regular rate and rhythm. No murmurs, rubs, or gallops. LUNGS: Bilateral rhonchi. ABDOMEN: Soft, nontender, nondistended. NEURO AND PSYCH: The patient is unresponsive at baseline. INPATIENT MEDICATIONS: Reviewed. LABORATORY DATA: Reviewed. TELEMETRY DATA: Reviewed shows normal sinus rhythm. ASSESSMENT AND PLAN: 1. Cerebrovascular accident, status post trach and PEG. 2. Acute respiratory failure with hypoxemia. 3. Sepsis. 4. Acute on chronic kidney disease. 5. History of hypertension. 6. Anemia. 7. Hyponatremia. 8. Rhabdomyolysis. 9. Acute on chronic liver disease. 10. Type 2 myocardial infarction. RECOMMENDATIONS: Continue management of respiratory issues infection by primary team. Echocardiogram shows essentially normal LV function, mildly elevated troponin due to type 2 [place] in the setting of severe dehydration, hypertension, and metabolic issues in the setting of sepsis. Recommended an ischemic workup given poor baseline functional status and low likelihood of baseline CAD. Thank you for this consult. We will continue to follow. MD FELICIA Hurd/NEGAR /[id number]
[2019-12-02] VITALS (13 sets, daily range): BP systolic 123–177; BP diastolic 71–109
[2019-12-02] MEDS: MEROPENEM 1GM 100 ML IV SCH (05:00)
[2019-12-02 05:41] LABS: BASOPHILS % 0.5 % (0.0-1.0); EOSINOPHILS # (AUTO) 0.2 (0.0-0.4); EOSINOPHILS % 3.1 % (0.0-6.0); HEMATOCRIT 24.4 % (34.2-44.1); HEMOGLOBIN 7.8 g/dL (12.0-16.0); LYMPHOCYTES # (AUTO) 1.6 (1.0-3.2); LYMPHOCYTES % 20.7 % (18.0-39.1); MEAN CORPUSCULAR VOLUME 75.1 fL (81-99); MONOCYTES # (AUTO) 0.4 (0.2-0.8); MONOCYTES % 4.8 % (4.4-11.3); NEUTROPHILS # (AUTO) 5.4 (2.1-6.9); NEUTROPHILS % 70.5 % (38.7-80.0); PLATELET COUNT 291 x10e3/uL (140-360); RED BLOOD COUNT 3.25 x10e6/uL (3.6-5.1); RED CELL DISTRIBUTION WIDTH 24.2 % (11.7-14.4)
[2019-12-02 05:50] LABS: ANION GAP 10.4 mmol/L (8-16); BLOOD UREA NITROGEN 20 mg/dL (7-26); BUN/CREATININE RATIO 30 (6-25); CALCIUM 8.5 mg/dL (8.4-10.2); CARBON DIOXIDE 26 mmol/L (22-29); CHLORIDE 116 mmol/L (98-107); CREATININE, SERUM 0.67 mg/dL (0.57-1.11); EST GLOMERULAR FILTRATION RATE > 60 ML/MIN (60-); GLUCOSE 101 mg/dL (74-118); POTASSIUM 3.4 mmol/L (3.5-5.1); SODIUM 149 mmol/L (136-145)
[2019-12-02] MEDS: INSULIN REGULAR, HUMAN 100 UNIT/1 ML 3ML VIAL SQ SCH ×2 (06:00)
--- NOTE | 2019-12-02 08:05 | NUR ---
CALLED LAB TO SPEAK WITH ROBERT TO SEE ABOUT RESULTS, WAITING JEWEL BEARING TURNER BACK.
--- NOTE | 2019-12-02 08:50 | NUR ---
GOT RESULTS, FAXED TO FACILITY AND TEXTED TO MAKE SURE RECEIVING FAX. WILL UPDATE WHEN GET ROOM.
[2019-12-02 08:58] LABS: ANISOCYTOSIS MODERATE; MICROCYTOSIS SLIGHT; PLATELET ESTIMATE ADEQUATE; PLATELET MORPHOLOGY COMMENT NORMAL; POIKILOCYTOSIS SLIGHT
[2019-12-02 08:59] LABS: HYPOCHROMASIA SLIGHT; RBC MORPHOLOGY COMMENT NORMAL
[2019-12-02] MEDS: ASPIRIN 81 MG CHEW TAB GT SCH (09:36)
[2019-12-02] MEDS: FAMOTIDINE 20 MG TAB PO SCH (10:00)
[2019-12-02] MEDS: HEPARIN SOD (PORCINE) 5,000 UNIT/ML VIAL SC SCH (10:00)
--- NOTE | 2019-12-02 10:08 | NUR ---
LONGTERM FACILITY DISCHARGE INFORMATION PATIENT HAS BEEN ACCEPTED TO: NAME: [facility] ADDRESS:[id number] [place] ACCEPTING DIRECTOR OF ONLINE EDUCATION: TIM SULLIVAN MD: CHAKA ROOM:[address]B NURSE CALL REPORT TO: [phone] IMM SIGNED AND OBTAINED (if applicable): NA THE FOLLOWING DOCUMENTS MUST ACCOMPANY PATIENT FOR TRANSFER: COPIED CHART: PACKET
--- NOTE | 2019-12-02 10:45 | NUR ---
pt cv19 results back negative per dr cano. ok to trans back to [facility] lewis. report called to Alda JIMENEZ at [facility]. transportations called for transfer. pt vs stable.
[2019-12-02] MEDS ORDERED: POTASSIUM CHLORIDE 20MEQ/15ML UDC GT ONE (11:00)
--- NOTE | 2019-12-02 11:49 | Progress Note ---
DATE: SUBJECTIVE: Ms. Vineet Lagunas is about the same, remains in intensive care unit, noncommunicative. COVID-19 came back negative. OBJECTIVE: VITAL SIGNS: Her vitals remained stable, temperature 99. There was no fever. HEENT: Not icteric. NECK: Supple. CHEST: Few crackles. COR: S1, S2. No murmur. ABDOMEN: Soft. Bowel sounds present. No tenderness. No hepatosplenomegaly. EXTREMITIES: No edema. IMPRESSION: Aspiration pneumonia getting better on meropenem to finish 7 days. The patient will be transferred back to the skilled care facility. Aspiration precaution. Prognosis is extremely poor because of or underlying complicated medical history. Discussed with the medical team. MD LEONEL Rodrigues/NEGAR /[id number]
--- NOTE | 2019-12-02 12:07 | NUR ---
EMS HERE TO EM PHYSICIAN PT. REPORT GIVEN. RT IN RM TO HELP WITH VENT
--- NOTE | 2019-12-02 12:19 | NUR ---
PT LEAVING ICU VIA STRETCHER FOR [facility] WITH CARDIAC MONITORING AND VENTILATOR WITH EMS ESCORT
[2019-12-03] MEDS ORDERED: BALSAM PERU/CASTOR OIL 60 GM OINT...G. TP SCH (09:00)
--- NOTE | 2020-01-05 03:02 | Discharge Summary ---
CHIEF COMPLAINT: Altered mental status and fever. FINAL DIAGNOSES: Chronic respiratory failure, , acute kidney injury, anemia. DISPOSITION: Skilled facility. HOSPITAL COURSE: A 49-year-old female, retirement resident, presents to the ER due to underlying fever, worsening condition, currently unresponsive, prior history of CVA and is on trach, found to be febrile with temperature of 101.7, was worked up and evaluated in the emergency room and was given volume resuscitation. Central line was placed. She was upgraded to ICU status. She will be admitted to undergo treatment regarding [id number]-px-[id number] respiratory failure with tracheostomy, now on mechanical vent. Septic shock with hypotension and lactic acidosis, etiology unknown. Acute kidney injury secondary to dehydration, hypernatremia secondary to volume depletion, rhabdomyolysis. Consultants during her stay regarding her vent need along with impending organ dysfunction, she was being reviewed by Dr. Frazier and his impression was hypotension; severe sepsis, existing prior to admission; acute renal failure; encephalopathy, toxic metabolic; underlying cerebrovascular accident and hemiparesis, possible dementia; hyperlipidemia; hypertension; anemia; thrombocytosis; leukocytosis; hypernatremia; hyperkalemia; elevated LFTs; dysphagia, status post PEG placement; kzqzc-kk-znlmgib respiratory failure, now on vent; tracheostomy status; severe hypoproteinemia. Recommend continuing tracheostomy in place. Resume tube feedings when stable. We will be initiating some IV fluids for the initial rhabdomyolysis. Cardiac consult with Dr. Brito. His review reveals an impression of cerebrovascular accident, status post tracheostomy; acute respiratory failure with hypoxemia; sepsis; qkwxl-fx-rihbiyg kidney disease; history of hypertension; anemia; hypernatremia; rhabdomyolysis; gfcig-sc-anpxpin liver disease; type 2 [place]. He states that he does not suspect acute coronary syndrome at this point in time. Infectious Disease with Dr. Lopez regarding shortness of breath, cough, and fever. His impression was srpfo-zr-pxpkenq respiratory failure. The patient probably has aspiration pneumonia with component of fluid overload. Chronic kidney disease. With respiratory failure and shortness of breath, the patient was being seen by Dr. Joseph. His assessment was acute kidney injury; hypernatremia; respiratory failure, chronic; possible tracheobronchitis, PEG tube status, history of stroke with hemiparesis. The patient is noncommunicative at baseline. From the ER, the patient was placed in ICU. She was on tube feeding. Continued vent management. Antibiotics were initiated. She was also continuing on her routine daily medications. Laboratory studies were being watched further. Her vital signs were continued to be watched as well. COVID-19 results which are pending. She was given heparin subcu prophylactic. Her sodium continued to be running elevated with running issues with potassium as well. Anemia was also noted. She was taken off her IV Lasix. Noted that her septic shock resolved. Continued to have anemia issue. She reached her potential recovery here. She was cleared for discharge back to the SNF facility. She was released in stable, but guarded condition. IMAGING: Initial chest x-ray shows no acute thoracic abnormality. Abdomen ultrasound shows mild hepatomegaly without focal hepatic abnormality. Left kidney is not visible. Repeat chest x-ray shows mild central pulmonary vascular congestion and mild interstitial edema. Suspected trace bilateral pleural effusions with case of mild compressive atelectasis. LABORATORY DATA: Cultures; blood and flu were negative. Initial lab studies begins with a CBC showing white blood cell count starting at 16,300, H and H were 10.8 and 33.0. Followup white blood cell counts per patient returned to normal limits. H and H values fell to a final study of 7.8 and 24.4. Her coronavirus was negative. Her influenza studies were negative. Her urinalysis unremarkable. Chemistries, initial panel; sodium 154, potassium is 5.7, BUN 91, creatinine 5.48. Cardiac enzymes shows a CPK of 5200, CK2 of 6.00, troponin I of 0.537. Followup second set of cardiac enzymes; CPK high at 5416, CK2 high at 6.70, troponin was slightly lower at 0.506. Followup potassium was borderline at 5. Sodium was still elevated at 154. Kidney functions improved, BUN 83 and creatinine 4.65. Followup sodiums were up to 162. BUN continued to improved at 71, creatinine 2.22. Followup cardiac enzymes shows a CPK vilma up to 8636, CK2 of 8.60, troponin level was normal. Followup CPK 4410. Sodium at the time of transfer was 149, potassium of 3.4. Kidney function is stabilized with a BUN of 20, creatinine of 0.57, and glucose of 120. The patient will be returning back to the [facility] for continuation of management of care. She will continue on vent support. She will continue to receive her current medications. Activity level as directed by me. Followup care, I will be evaluating the patient daily at that facility. Staff will be contacting me as needed. Dictated by BARBARA Baker Christian Castaneda MD CC/MODL /[id number]
== END 2019-12-02 12:15 | DRG 871 ==
LOC: ER 12:00 → ERHOLD 14:19 → ICU 21:20
PROC: 5A1945Z Respiratory Ventilation, 24-96 Consecutive Hours (ICD-10-PCS; principal; 2019-11-28)
DX: A41.9 Sepsis, unspecified organism (principal); R65.21 Severe sepsis with septic shock; J96.20 Acute and chronic respiratory failure, unspecified whether with hypoxia or hypercapnia; G93.41 Metabolic encephalopathy; J69.0 Pneumonitis due to inhalation of food and vomit; N17.9 Acute kidney failure, unspecified; E87.0 Hyperosmolality and hypernatremia; M62.82 Rhabdomyolysis; E87.2 Acidosis; I69.359 Hemiplegia and hemiparesis following cerebral infarction affecting unspecified side; E86.0 Dehydration; E86.9 Volume depletion, unspecified; E77.8 Other disorders of glycoprotein metabolism; E87.5 Hyperkalemia; Z93.1 Gastrostomy status; D47.3 Essential (hemorrhagic) thrombocythemia; D64.9 Anemia, unspecified; R13.10 Dysphagia, unspecified
CPT/HCPCS: 36415; 36555; 71045; 76700; 80048; 80053; 81001; 82436; 82550; 82553; 82570; 82728; 82948; 83518; 83605; 83735; 84100; 84145; 84300; 84484; 85025; 85379; 85610; 85730; 87040; 87070; 87400; 87449; 87633; 87635; 93005; 94002; 94003; 99285; J0456; J0610; J0692; J0696; J1644; J3370; J7030; J7040

== ENCOUNTER 2020-02-22 18:12 | Emergency (ER) | payer OTHER ==
[~2020-02-22] VITALS: Ht 165.1 cm; Wt 64.9 kg
[~2020-02-22 18:12] MED LIST: ACETAMINOPHEN325 M1 GT; ASPIR 8181 MG GT; ATORVASTATIN CA20 MG GT; BISACODYL5 MG PO; HUMALOG100 UNIT/3; LISINOPRIL2.5 MG GT; MILK OF MA2400 MG/10 GT
[2020-02-22] MEDS ORDERED: SODIUM CHLORIDE 0.9% 1000ML 1,000 ML IV STA (18:28)
[2020-02-22] MEDS ORDERED: VANCOMYCIN 1GM/NS 250 ML 250 ML IV ONE (19:00)
--- NOTE | 2020-02-22 20:42 | Diagnostic Imaging Report ---
EXAMINATION: CHEST SINGLE (PORTABLE) INDICATION: ^EVAL VENT-ASSOC PNEUMONIA ^[id number] ^2004 COMPARISON: 11/29/2019 FINDINGS: AP view TUBES and LINES: Stable tracheostomy tube. Interval removal of left IJ central venous catheter. LUNGS: Interval development of patchy consolidation in the right perihilar region and right lower lobe, and in the left lung base. There is mild volume loss with elevation of the right hemidiaphragm. PLEURA: No pneumothorax. Trace bilateral pleural effusions, left greater the right. HEART AND MEDIASTINUM: The cardiomediastinal silhouette is unremarkable. BONES AND SOFT TISSUES: No acute osseous lesion. Soft tissues are unremarkable. UPPER ABDOMEN: No free air under the diaphragm. IMPRESSION: Findings suggestive of bilateral lower lobe pneumonia. Signed by: Dr. Roselia Souza M.D. on 02/22/2020 8:38 PM
[2020-02-22] MEDS: CEFEPIME 2 GM/NS 0.9% 100 ML 100 ML IV SCH (20:47)
[2020-02-22 20:53] LABS: BASOPHILS # (AUTO) 0.1 (0.0-0.1); BASOPHILS % 0.3 % (0.0-1.0); EOSINOPHILS # (AUTO) 0.9 (0.0-0.4); EOSINOPHILS % 4.8 % (0.0-6.0); HEMOGLOBIN 7.6 g/dL (12.0-16.0); LYMPHOCYTES % 10.6 % (18.0-39.1); MEAN CORPUSCULAR HEMOGLOBIN 26.3 pg (28-32); MEAN CORPUSCULAR HGB CONC 34.4 g/dL (31-35); MEAN CORPUSCULAR VOLUME 76.5 fL (81-99); MONOCYTES # (AUTO) 0.9 (0.2-0.8); MONOCYTES % 4.6 % (4.4-11.3); NEUTROPHILS # (AUTO) 14.7 (2.1-6.9); NEUTROPHILS % 79.1 % (38.7-80.0); PLATELET COUNT 762 x10e3/uL (140-360); RED BLOOD COUNT 2.89 x10e6/uL (3.6-5.1); RED CELL DISTRIBUTION WIDTH 17.5 % (11.7-14.4)
[2020-02-22 20:55] LABS: HEMATOCRIT 22.1 % (34.2-44.1)
[2020-02-22 21:02] LABS: INR 1.05; PROTHROMBIN TIME 14.3 seconds (11.9-14.5)
[2020-02-22 21:03] LABS: PARTIAL THROMBOPLASTIN TIME 28.5 seconds (23.8-35.5)
[2020-02-22 21:11] LABS: BILIRUBIN,URINE NEGATIVE (NEGATIVE); CLARITY,URINE TURBID (CLEAR); COLOR,URINE YELLOW (YELLOW); KETONES,URINE NEGATIVE (NEGATIVE); LEUKOCYTE ESTERASE ,URINE LARGE (NEGATIVE); NITRITE,URINE POSITIVE (NEGATIVE); PROTEIN,URINE DIPSTICK >=300 (NEGATIVE); URINE UROBILINOGEN 0.2 mg/dL (0.2 - 1)
[2020-02-22 21:12] LABS: ALANINE AMINOTRANSFERASE 39 IU/L (0-55); ALBUMIN 2.1 g/dL (3.5-5.0); ALBUMIN/GLOBULIN RATIO 0.3 (0.8-2.0); ALKALINE PHOSPHATASE 185 IU/L (40-150); ANION GAP 16.6 mmol/L (8-16); BLOOD UREA NITROGEN 116 mg/dL (7-26); BUN/CREATININE RATIO 20 (6-25); CALCIUM 11.7 mg/dL (8.4-10.2); CARBON DIOXIDE 23 mmol/L (22-29); CHLORIDE 98 mmol/L (98-107); CREATINE KINASE 25 IU/L (29-168); CREATININE, SERUM 5.82 mg/dL (0.57-1.11); EST GLOMERULAR FILTRATION RATE 9 ML/MIN (60-); GLUCOSE 99 mg/dL (74-118); MAGNESIUM 2.1 MG/DL (1.3-2.1); SODIUM 130 mmol/L (136-145)
[2020-02-22 21:18] LABS: POTASSIUM 7.6 mmol/L (3.5-5.1)
[2020-02-22 21:19] LABS: BACTERIA,URINE MANY /HPF; RBC,URINE 0-5 /HPF (0-5); TRIPLE PHOSPHATE CRYSTAL,UR FEW (FEW)
[2020-02-22 21:19] LABS: B-TYPE NATRIURETIC PEPTIDE2 13.2 pg/mL (0-100)
[2020-02-22] MEDS ORDERED: DEXTROSE 50% SYRINGE 50 ML IV STA (21:46)
[2020-02-22] MEDS ORDERED: INSULIN REGULAR, HUMAN 100 UNIT/1 ML 3ML VIAL IV ONE (22:00)
[2020-02-22] MEDS ORDERED: CALCIUM GLUCONATE 10% INJ 4.65 MEQ in SODIUM CHLORIDE 0.9% 50ML 50 ML IV ONE (22:00)
[2020-02-22] MEDS ORDERED: SOD POLYSTYRENE SULFONATE SUSP 15 GM/60 ML BTL PO ONE (22:00)
--- NOTE | 2020-02-22 22:29 | NUR ---
Transfer initiated at 2228, patient placed on a hold with, awaiting transfer to a inpatient ICU unit. Covid results are pending.
[2020-02-22] MEDS ORDERED: SODIUM BICARBONATE 8.4% INJ 50 ML SYR IV STA (23:34)
[2020-02-23] MEDS ORDERED: ACETAMINOPHEN 325 MG SUPP PR ONE (00:30)
--- NOTE | 2020-02-23 03:00 | NUR ---
Pt arrived with shields. Unknown last change date. Order obtained to change, removal of shields revealed it was approximately 2 inches into the urethra. At this time less that 30 mL output noted in drainage bag. New 16 Fr Shields inserted, sterile technique used. Upon insertion immediate return of 500 mL Purulent, Cloudy, Brownish/Greenish/Yellow Urine returned in drainage bag. ER notified. Sample sent to lab for UA and Urine Culture.
--- NOTE | 2020-02-23 03:45 | NUR ---
Pt arrived with RUE Midline in place. Midline observed to be in very poor condition. Tegaderm not intact and dated 02/04/2020. Foul odor and brownish discharge noted to be coming from line. Order obtained to remove line and send for culture of tip. Midline removed, area cleansed with CHG. Occlusive dressing applied. No distress or Vital Sign changes noted at this time.
[2020-02-23] MEDS ORDERED: SODIUM CHLORIDE 0.9% 1000ML 1,000 ML IV STA ×2 (04:18)
[2020-02-23 04:21] LABS: BASOPHILS # (AUTO) 0.1 (0.0-0.1); BASOPHILS % 0.4 % (0.0-1.0); EOSINOPHILS # (AUTO) 0.3 (0.0-0.4); EOSINOPHILS % 1.3 % (0.0-6.0); HEMOGLOBIN 7.8 g/dL (12.0-16.0); LYMPHOCYTES # (AUTO) 0.8 (1.0-3.2); MEAN CORPUSCULAR HEMOGLOBIN 26.1 pg (28-32); MEAN CORPUSCULAR HGB CONC 34.7 g/dL (31-35); MEAN CORPUSCULAR VOLUME 75.3 fL (81-99); MONOCYTES # (AUTO) 0.4 (0.2-0.8); MONOCYTES % 1.8 % (4.4-11.3); NEUTROPHILS # (AUTO) 18.5 (2.1-6.9); NEUTROPHILS % 91.5 % (38.7-80.0); PLATELET COUNT 742 x10e3/uL (140-360); RED BLOOD COUNT 2.99 x10e6/uL (3.6-5.1); RED CELL DISTRIBUTION WIDTH 17.4 % (11.7-14.4)
[2020-02-23 04:26] LABS: INR 1.11
[2020-02-23 04:29] LABS: HEMATOCRIT 22.5 % (34.2-44.1)
[2020-02-23 04:35] LABS: ALBUMIN/GLOBULIN RATIO 0.3 (0.8-2.0); ANION GAP 18.9 mmol/L (8-16); CALCIUM 11.8 mg/dL (8.4-10.2); CREATININE, SERUM 6.15 mg/dL (0.57-1.11)
[2020-02-23 04:37] LABS: POTASSIUM 7.9 mmol/L (3.5-5.1)
--- NOTE | 2020-02-23 04:38 | NUR ---
ER MD AND PRIMARY RN NOTIFIED AND AWARE OF CRITICAL LAB VALUE, POTASSIUM 7.9.
[2020-02-23] MEDS ORDERED: SODIUM BICARBONATE 8.4% SYRING 100 ML ONE (04:41)
[2020-02-23 04:42] LABS: CREATINE KINASE MB 4.7 ng/mL (0-5.0)
[2020-02-23 05:09] LABS: CLARITY,URINE CLOUDY (CLEAR); COLOR,URINE YELLOW (YELLOW)
[2020-02-23 05:10] LABS: BILIRUBIN,URINE NEGATIVE (NEGATIVE); KETONES,URINE NEGATIVE (NEGATIVE); LEUKOCYTE ESTERASE ,URINE 2+ (NEGATIVE); NITRITE,URINE POSITIVE (NEGATIVE); PROTEIN,URINE DIPSTICK 2+ (NEGATIVE); URINE UROBILINOGEN 0.2 mg/dL (0.2 - 1)
[2020-02-23 05:20] LABS: AMORPHOUS SEDIMENT,URINE MODERATE (FEW); BACTERIA,URINE MANY /HPF; EPITHELIAL CELLS,URINE FEW /LPF; WBC,URINE (MAN) >50 /HPF (0-5)
--- NOTE | 2020-02-23 05:31 | Diagnostic Imaging Report ---
EXAMINATION: CHEST SINGLE (PORTABLE) INDICATION: ^Y ^Trach to Vent ^[id number] ^0500 ^Y COMPARISON: 02/22/2020 FINDINGS: AP view TUBES and LINES: Unchanged tracheostomy tube. LUNGS: Mid to lower lung zone airspace opacities are increased. PLEURA: No pleural effusion or pneumothorax. HEART AND MEDIASTINUM: The cardiomediastinal silhouette is unremarkable. BONES AND SOFT TISSUES: No acute osseous lesion. Soft tissues are unremarkable. UPPER ABDOMEN: No free air under the diaphragm. IMPRESSION: Interval increase in bilateral pulmonary airspace opacities suggestive of worsening pneumonia/aspiration. Signed by: Norman Harris MD on 02/23/2020 5:28 AM
--- NOTE | 2020-02-23 05:33 | Diagnostic Imaging Report ---
EXAM: Abdomen Radiograph 1 View(s) INDICATION: ^Y ^Sacral Wound r/o Osteomyelitis ^[id number] ^0500 ^Y COMPARISON: None FINDINGS: The bowel gas pattern is nonspecific. No abnormal soft tissue No acute displaced fracture. No definite osseous erosion. No free intraperitoneal air. IMPRESSION: No discrete osseous erosion is identified. Of note, plain film radiography is insensitive for early pelvic osteomyelitis. A more sensitive imaging evaluation for osteomyelitis may be obtained with CT scan and/or MRI. Signed by: Norman Harris MD on 02/23/2020 5:29 AM
[2020-02-23] MEDS ORDERED: SODIUM CHLORIDE 0.9% 1000ML 1,000 ML ONE (06:11)
[2020-02-23] MEDS: CEFEPIME 2 GM/NS 0.9% 100 ML 100 ML IV SCH (06:55)
[2020-02-23] MEDS ORDERED: SOD POLYSTYRENE SULFONATE SUSP 15 GM/60 ML BTL PO ONE (07:01)
--- NOTE | 2020-02-23 07:11 | Emergency Department Note ---
History of Present Illnes History of Present Illness Chief Complaint: General Medicine Complaints History of Present Illness This is a 50 year old female unable to provide history given baseline tracheostomy, on vent dependence. Per [facility] records patient sent to the ED for change in behavior. 1 call in speaking to the nurse at facility patient appears to be at baseline mental status. Chief Complaint Comment brought in by EMS for abnormal labs. sending facility has noted no change in baseline mental status, fuctional state, behavior, respiratory, cardiovascular, Gi or . Historian: Acoustical Tile Drill Press Operator/EMS Arrival Mode: [facility] EMS Treatment PIPELINE CONSTRUCTION INSPECTOR: O2, EKG Onset quality: unable to specify Progression: unable to specify (JEMMA REBOLLEDO DO) Past Medical/Family History Physician Review I have reviewed the patient's past medical and family history. Any updates have been documented here. 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 Other Surgery: GASTROSTOMY TUBE TRACHEA (JEMMA REBOLLEDO DO) Social History Smoking Cessation: Former smoker Alcohol Use: None Any Illegal Drug Use: Yes (history of drug abuse) TB Exposure/Symptoms: No Physically hurt or threatened: No (JEMMA REBOLLEDO DO) Family History Family history of heart diseas: No (JEMMA REBOLLEDO DO) Other Last Tetanus: unknown Any Pre-Existing Lines (PICC,: Yes (right sided PICC line) Is patient up to date on immun: Yes Last Flu: unknown Last Pneumovax: unknown (JEMMA REBOLLEDO DO) Review of Systems ROS Narrative Unable to obtain ROS: Unable to obtain due to, altered mental status, other (trach/vent patient) (JEMMA REBOLLEDO DO) Review of Systems Constitutional: Reports no symptoms EENTM: Reports no symptoms Cardiovascular: Reports no symptoms Respiratory: Reports no symptoms Gastrointestinal: Reports no symptoms Genitourinary: Reports no symptoms Musculoskeletal: Reports no symptoms Integumentary: Reports no symptoms Neurological: Reports no symptoms Psychological: Reports no symptoms Endocrine: Reports no symptoms Hematological/Lymphatic: Reports no symptoms (JEMMA REBOLLEDO DO) Physical Exam Related Data Allergies: Coded Allergies: No Known Allergies (Unverified , 11/28/19) Triage Vital Signs Vital Signs Date Time Temp Pulse Resp B/P (MAP) Pulse Ox O2 Delivery O2 Flow Rate FiO2 02/22/20 18:45 118 32 100 32.0 02/22/20 18:45 98.8 153/76 Vital signs reviewed: Yes (JEMMA REBOLLEDO, ) Physical Exam CONSTITUTIONAL Constitutional: Present well-developed, Present ill appearing HENT HENT: Present normocephalic, Present atraumatic, Present oropharynx clear/[place] st, Present nose normal HENT L/R: Present left ext ear normal, Present right ext ear normal EYES Eyes: Reports PERRL, Reports conjunctivae normal NECK Neck: Present ROM normal PULMONARY Pulmonary: Present effort normal, Present respiratory distress CARDIOVASCULAR Cardiovascular: Present regular rhythm, Present irregular rhythm, Present normal rate GASTROINTESTINAL Abdominal: Present soft, Present nontender, Present bowel sounds normal GENITOURINARY Genitourinary: Present exam deferred SKIN Skin: Present dry MUSCULOSKELETAL Musculoskeletal: Present ROM normal NEUROLOGICAL Neurological: Present other (wasted upper and lower extremities) PSYCHOLOGICAL (JEMMA REBOLLEDO, ) Results Laboratory Result Diagram: 02/23/20 0300 02/23/20 0300 Laboratory Laboratory Tests Test 02/23/20 03:30 02/23/20 03:00 02/23/20 00:00 02/22/20 20:49 Urine Color Yellow (YELLOW) Yellow (YELLOW) Urine Clarity Cloudy (CLEAR) Turbid (CLEAR) Urine pH 8.5 (5 - 7) 9 (5 - 7) Urine Specific [place] 1.020 (1.010-1.025) 1.010 (1.010-1.025) Urine Protein 2+ (NEGATIVE) >=300 (NEGATIVE) Urine Glucose (UA) Negative (NEGATIVE) Negative (NEGATIVE) Urine Ketones Negative (NEGATIVE) Negative (NEGATIVE) Urine Blood 3+ (NEGATIVE) Trace (NEGATIVE) Urine Nitrite Positive (NEGATIVE) Positive (NEGATIVE) Urine Bilirubin Negative (NEGATIVE) Negative (NEGATIVE) Urine Urobilinogen 0.2 mg/dL (0.2 - 1) 0.2 mg/dL (0.2 - 1) Urine Leukocyte Esterase 2+ (NEGATIVE) Large (NEGATIVE) Urine RBC 6-10 /HPF (0-5) 0-5 /HPF (0-5) Urine WBC >50 /HPF (0-5) 6-10 /HPF (0-5) Urine Epithelial Cells Few /LPF (NONE) None /LPF (NONE) Urine Amorphous Sediment Moderate (FEW) Urine Bacteria Many /HPF (NONE) Many /HPF (NONE) White Blood Count 20.17 x10e3/uL (4.8-10.8) Red Blood Count 2.99 x10e6/uL (3.6-5.1) Hemoglobin 7.8 g/dL (12.0-16.0) Hematocrit 22.5 % (34.2-44.1) Mean Corpuscular Volume 75.3 fL (81-99) Mean Corpuscular Hemoglobin 26.1 pg (28-32) Mean Corpuscular Hemoglobin Concent 34.7 g/dL (31-35) Red Cell Distribution Width 17.4 % (11.7-14.4) Platelet Count 742 x10e3/uL (140-360) Neutrophils (%) (Auto) 91.5 % (38.7-80.0) Lymphocytes (%) (Auto) 4.0 % (18.0-39.1) Monocytes (%) (Auto) 1.8 % (4.4-11.3) Eosinophils (%) (Auto) 1.3 % (0.0-6.0) Basophils (%) (Auto) 0.4 % (0.0-1.0) Neutrophils # (Auto) 18.5 (2.1-6.9) Lymphocytes # (Auto) 0.8 (1.0-3.2) Monocytes # (Auto) 0.4 (0.2-0.8) Eosinophils # (Auto) 0.3 (0.0-0.4) Basophils # (Auto) 0.1 (0.0-0.1) Absolute Immature Granulocyte (auto 0.20 x10e3/uL (0-0.1) Prothrombin Time 15.0 seconds (11.9-14.5) Prothromb Time International Ratio 1.11 Activated Partial Thromboplast Time 31.0 seconds (23.8-35.5) Sodium Level 130 mmol/L (136-145) Potassium Level 7.9 mmol/L (3.5-5.1) Chloride Level 100 mmol/L (98-107) Carbon Dioxide Level 19 mmol/L (22-29) Anion Gap 18.9 mmol/L (8-16) Blood Urea Nitrogen 119 mg/dL (7-26) Creatinine 6.15 mg/dL (0.57-1.11) Estimat Glomerular Filtration Rate 9 ML/MIN (60-) BUN/Creatinine Ratio 19 (6-25) Glucose Level 74 mg/dL (74-118) Calcium Level 11.8 mg/dL (8.4-10.2) Total Bilirubin 0.4 mg/dL (0.2-1.2) Aspartate Amino Transf (AST/SGOT) 70 IU/L (5-34) Alanine Aminotransferase (ALT/SGPT) 84 IU/L (0-55) Alkaline Phosphatase 335 IU/L (40-150) Creatine Kinase 32 IU/L (29-168) Creatine Kinase MB 4.70 ng/mL (0-5.0) Troponin I 0.030 ng/mL (0-0.300) Total Protein 9.1 g/dL (6.5-8.1) Albumin 2.0 g/dL (3.5-5.0) Globulin 7.1 g/dL (2.3-3.5) Albumin/Globulin Ratio 0.3 (0.8-2.0) Urine Triple Phosphate Crystals Few (FEW) Test 02/22/20 20:25 02/22/20 19:56 White Blood Count 18.62 x10e3/uL (4.8-10.8) Red Blood Count 2.89 x10e6/uL (3.6-5.1) Hemoglobin 7.6 g/dL (12.0-16.0) Hematocrit 22.1 % (34.2-44.1) Mean Corpuscular Volume 76.5 fL (81-99) Mean Corpuscular Hemoglobin 26.3 pg (28-32) Mean Corpuscular Hemoglobin Concent 34.4 g/dL (31-35) Red Cell Distribution Width 17.5 % (11.7-14.4) Platelet Count 762 x10e3/uL (140-360) Neutrophils (%) (Auto) 79.1 % (38.7-80.0) Lymphocytes (%) (Auto) 10.6 % (18.0-39.1) Monocytes (%) (Auto) 4.6 % (4.4-11.3) Eosinophils (%) (Auto) 4.8 % (0.0-6.0) Basophils (%) (Auto) 0.3 % (0.0-1.0) Neutrophils # (Auto) 14.7 (2.1-6.9) Lymphocytes # (Auto) 2.0 (1.0-3.2) Monocytes # (Auto) 0.9 (0.2-0.8) Eosinophils # (Auto) 0.9 (0.0-0.4) Basophils # (Auto) 0.1 (0.0-0.1) Absolute Immature Granulocyte (auto 0.11 x10e3/uL (0-0.1) Prothrombin Time 14.3 seconds (11.9-14.5) Prothromb Time International Ratio 1.05 Activated Partial Thromboplast Time 28.5 seconds (23.8-35.5) Sodium Level 130 mmol/L (136-145) Potassium Level 7.6 mmol/L (3.5-5.1) Chloride Level 98 mmol/L (98-107) Carbon Dioxide Level 23 mmol/L (22-29) Anion Gap 16.6 mmol/L (8-16) Blood Urea Nitrogen 116 mg/dL (7-26) Creatinine 5.82 mg/dL (0.57-1.11) Estimat Glomerular Filtration Rate 9 ML/MIN (60-) BUN/Creatinine Ratio 20 (6-25) Glucose Level 99 mg/dL (74-118) Lactic Acid Level 0.9 mmol/L (0.5-2.0) Calcium Level 11.7 mg/dL (8.4-10.2) Magnesium Level 2.1 MG/DL (1.3-2.1) Total Bilirubin 0.2 mg/dL (0.2-1.2) Aspartate Amino Transf (AST/SGOT) 34 IU/L (5-34) Alanine Aminotransferase (ALT/SGPT) 39 IU/L (0-55) Alkaline Phosphatase 185 IU/L (40-150) Creatine Kinase 25 IU/L (29-168) Creatine Kinase MB 1.20 ng/mL (0-5.0) Troponin I < 0.001 ng/mL (0-0.300) B-Type Natriuretic Peptide 13.2 pg/mL (0-100) Total Protein 9.1 g/dL (6.5-8.1) Albumin 2.1 g/dL (3.5-5.0) Globulin 7.0 g/dL (2.3-3.5) Albumin/Globulin Ratio 0.3 (0.8-2.0) (JEMMA REBOLLEDO DO) Procedures 12 Lead ECG Interpretation ECG Interpretation : ECG: ECG 1 Cobol Developer: Interpreted by ED physician Prior ECG tracings: reviewed Rhythm: sinus tachycardia Rate: tachycardia QRS axis: normal ST segments normal: Yes T waves normal: Yes Clinical Impression: abnormal ECG (JEMMA REBOLLEDO DO) Critical Care Time Total Critical Care Time (min): 125 Critical care time exclusive o: separately billable procedures (JEMMA REBOLLEDO DO) Assessment & Plan Assessment & Plan Final Impression: (1) Hyperkalemia (2) UTI (urinary tract infection) (3) Sepsis (4) Renal failure (TIM LAEJANDRE DO) Depart Disposition: TRANS TO OTHER [facility] Last Vital Signs Date Time Temp Pulse Resp B/P (MAP) Pulse Ox O2 Delivery O2 Flow Rate FiO2 02/23/20 04:00 101.5 130 27 100/58 100 02/22/20 23:55 40.0 (JEMMA REBOLLEDO DO) Home Meds Reported Medications Insulin Lispro (HUMALOG) 100 Unit/1 Ml Insuln.pen 11/28/19 Bisacodyl (BISACODYL) 5 Mg Tablet.dr, 10 MG PO DAILY for constipation , TAB 11/28/19 Magnesium Hydroxide (MILK OF MAGNESIA) 2,400 Mg/10 Ml Oral.susp, 30 ML GT DAILY 11/28/19 Lisinopril (LISINOPRIL) 2.5 Mg Tablet, 2.5 MG GT Q12H PRN for ELEVATED BLOOD PRESSURE, #30 TAB 11/28/19 Atorvastatin Calcium (ATORVASTATIN CALCIUM) 20 Mg Tablet, 40 MG GT HS, #30 TAB 11/28/19 Aspirin (ASPIR 81) 81 Mg Tablet.dr, 81 MG GT DAILY for blood thinner 11/28/19 Acetaminophen (ACETAMINOPHEN) 325 Mg Tablet, 650 MG GT Q4HR PRN for BREAKTHROUGH PAIN for 5 Days, TAB 11/28/19 Medications in the ED Sodium Chloride 1,000 ml @ 0 mls/hr Q0M STAT IV Last administered on 02/22/20at 20:46; Admin Dose 1,000 MLS/HR; Start 02/22/20 at 18:28; Stop 02/22/20 at 18:31; Status DC Cefepime HCl 100 ml @ 200 mls/hr Q12H IV Last administered on 02/22/20at 20:47; Admin Dose 200 MLS/HR; Start 02/22/20 at 18:30; Stop 02/29/20 at 18:29 Vancomycin HCl 250 ml @ 167 mls/hr NOW ONCE IV Last administered on 02/22/20at 21:50; Admin Dose 167 MLS/HR; Start 02/22/20 at 19:00; Stop 02/22/20 at 20:29; Status DC Sodium Polystyrene Sulfonate 30 gm ONCE ONCE PO Last administered on 02/22/20at 22:15; Admin Dose 30 GM; Start 02/22/20 at 22:00; Stop 02/22/20 at 22:12; [facility] DC Calcium Gluconate 4.65 meq/Sodium Chloride 60 ml @ 60 mls/hr ONCE ONCE IV Last administered on 02/22/20at 22:00; Admin Dose 60 MLS/HR; Start 02/22/20 at 22:00; Stop 02/22/20 at 22:59; Status DC Dextrose 50 ml NOW STAT IV Last administered on 02/22/20at 22:15; Admin Dose 50 ML; Start 02/22/20 at 21:46; Stop 02/22/20 at 21:55; Status DC Insulin Human Regular 10 unit ONCE ONCE IV Last administered on 02/22/20at 22:15; Admin Dose 10 UNIT; Start 02/22/20 at 22:00; Stop 02/22/20 at 22:12; Status DC Sodium Bicarbonate 100 ml NOW STAT IV Last administered on 02/23/20at 04:45; Admin Dose 100 ML; Start 02/22/20 at 23:34; Stop 02/22/20 at 23:35; Status DC Azithromycin 250 ml @ 200 mls/hr DAILY IV ; Start 02/23/20 at 09:00; Stop 03/01/20 at 08:59 Acetaminophen 650 mg ONCE ONCE [place] Last administered on 02/23/20at 03:10; Admin Dose 650 MG; Start 6/30/20 at 00:30; Stop 02/23/20 at 00:45; Status DC Sodium Chloride 1,000 ml @ 0 mls/hr Q0M STAT IV Last administered on 02/23/20at 04:45; Admin Dose 999 MLS/HR; Start 02/23/20 at 04:18; Stop 02/23/20 at 04:20; Status DC Sodium Chloride 1,000 ml @ 0 mls/hr Q0M STAT IV Last administered on 02/23/20at 04:45; Admin Dose 999 MLS/HR; Start 02/23/20 at 04:18; Stop 02/23/20 at 04:20; Status DC Sodium Bicarbonate 100 ml @ ud STK-MED ONCE .ROUTE ; Start 02/23/20 at 04:41; Stop 02/23/20 at 04:36; Status DC Sodium Polystyrene Sulfonate 30 gm ONCE ONCE PO ; Start 02/23/20 at 07:01; Stop 02/23/20 at 07:02 Sodium Chloride 1,000 ml @ ud STK-MED ONCE .ROUTE ; Start 02/23/20 at 06:11; Stop 02/23/20 at 06:05; Status DC (JEMMA REBOLLEDO DO) Physician Attestation Provider Attestation S/W Dr Quezada at 1358 02/23/20 at [facility] for admission to the ICU. Labs reviewed. Potassium repeated with downward trend (TIM ALEJANDRE DO) JEMMA REBOLLEDO DO Feb 23, 2020 07:10 TIM ALEJANDRE DO Feb 23, 2020 13:59
[2020-02-23] MEDS ORDERED: AZITHROMYCIN 500MG/NS 250 ML 250 ML IV SCH (09:00)
--- NOTE | 2020-02-23 12:43 | NUR ---
Contacted [facility] transfer center to check on status of transfer. Spoke to video tape transferrer stated [facility] is handling the transfer also stated we are just waiting on an accepting physician and doc to doc. Will contact [facility] [phone].
--- NOTE | 2020-02-23 13:07 | NUR ---
Called [facility] transfer center to check on status of transfer, spoke to Rosana-fleet coordinator, stated they needed more info on pt- info provided, stated will contact a physician to provide acceptance and do doc to doc.
--- NOTE | 2020-02-23 13:36 | NUR ---
WOUND CARE CONSULT FOR 50 YO FEMALE HX OF SACRAL STAGE 4 ULCERATION JOSEPH 10 ON STRICT PUP STATUS AND INTERVENTIONS AND ER STRETCHER LABS: WBC-20.17 HGB_7.8 GLUCOSE-74 SKIN ASSESSMENT COMPLETE PATIENT PRESENTS WITH SACRAL STAGE 4 ULCERATION 2HGD1GS X3CM UNDERMINING AT 3OCLOCK 3CM AND 6OCLOCK 3CM EXPOSED BONE TO BASE OF WOUND RIGHT KNEE PARTIAL THICKNESS SKIN TEAR 2.5CM X3CM X0.1 CM LEFT HEEL UNSTAGEABLE ULCERATION 1CM X1CM YELLOW /BROWN SLOUGH COVER MINIMAL DRAINAGE RECOMMENDATIONS: NURSING TO CONTINUE TO MAINTAIN STRICT PUP STATUS AND INTERVENTIONS AND PLACE ON ALTERNATING PRESSURE MATTRESS NURSING TO CONTINUE TO ASSIST PATIENT OUT OF BED FOR MEALS AND MUCH TOLERATED NURSING TO CONTINUE TO ASSIST PATIENT NEEDED WITH MEALS AND NUTRITIONAL SUPPLEMENTS TO ENSURE PROPER REQUIREMENTS FOR HEALING NURSING TO CONTINUE TO OFFLOAD FEET AND HEELS NEEDED WITH PILLOW SUSPENSION WHEN IN BED NURSING TO CLEAN SACRAL STAGE 4 ULCERATION WITH NORMAL SALINE DAILY AND APPLY BETADINE MOIST KANDACE AND ALLEVYN FOAM DRESSING COVER NURSING TO CLEAN RIGHT KNEE PARTIAL THICKNESS SKIN TEAR WITH NORMAL SALINE DAILY AND APPLY COLLAGEN (PURACOL ) AND COVER WIYH ALLEVYN FOAM DRESSING NURSING TO CLEAN LEFT HEEL UNSTAGEABLE ULCERATION WITH NORMAL SALINE DAILY AND APPLY SANTYL OINTMENT TO SLOUGH AND COVER WITH 4X4 AND ALLEVYN FOAM DRESSING Addendum: 02/23/20 at 1350 by John Saavedra RN Amended: Links added.
--- NOTE | 2020-02-23 13:56 | NUR ---
Pt accepted at [facility] at this time. Dr. Mundo Thrasher is the accepting MD. Pt to be admitted to ICU room 6C8. LACHELLE Mccullough gave admin approval. Number to call report [phone]. Addendum: 02/23/20 at 1855 by [email or web address] Pt accepted to [facility] at [place], [place]. [facility] [address] [place] [address]
[2020-02-23] MEDS ORDERED: FUROSEMIDE INJ 10 MG/ML 4 ML VIAL IV STA (17:16)
--- NOTE | 2020-02-23 17:26 | NUR ---
Report called to [place] for transfer. [facility] contacted regarding ambulance transport. An ETA of 1700 was given.
[2020-02-23 17:57] LABS: ALBUMIN 1.6 g/dL (3.5-5.0); ALBUMIN/GLOBULIN RATIO 0.3 (0.8-2.0); ANION GAP 14.1 mmol/L (8-16); CALCIUM 10.3 mg/dL (8.4-10.2); CREATININE, SERUM 4.72 mg/dL (0.57-1.11); POTASSIUM 5.1 mmol/L (3.5-5.1)
[2020-02-24] MEDS ORDERED: COLLAGENASE 5 GM TUBE TP SCH (09:00)
== END 2020-02-23 19:29 | disposition other institution (70) ==
LOC: ER 18:47
DX: A41.9 Sepsis, unspecified organism (principal); N19 Unspecified kidney failure; E87.5 Hyperkalemia; N39.0 Urinary tract infection, site not specified; I10 Essential (primary) hypertension; Z11.59 Encounter for screening for other viral diseases
CPT/HCPCS: 36415; 51700; 71045 ×2; 74018; 80053; 81001; 82550; 82553; 83605; 83735; 83880; 84484; 85025; 85610; 85730; 87040; 87071; 87086; 87205; 87635; 93005; 94002; 97602; 99251; 99284; J0456; J0610; J1817; J3370; J7030 ×2; J7799

== ENCOUNTER 2020-04-05 20:03 | Emergency (ER) | payer MEDICARE, OTHER ==
[~2020-04-05] VITALS: Ht 165.1 cm; Wt 64.9 kg
[2020-04-05] MEDS ORDERED: CEFEPIME 1GM/NS 0.9% 50 ML 50 ML IV SCH (20:45)
[2020-04-05 21:57] LABS: BASOPHILS # (AUTO) 0.1 (0.0-0.1); BASOPHILS % 0.5 % (0.0-1.0); EOSINOPHILS # (AUTO) 1.1 (0.0-0.4); EOSINOPHILS % 6.8 % (0.0-6.0); LYMPHOCYTES # (AUTO) 3.3 (1.0-3.2); MEAN CORPUSCULAR HEMOGLOBIN 26.1 pg (28-32); MEAN CORPUSCULAR HGB CONC 32.9 g/dL (31-35); MEAN CORPUSCULAR VOLUME 79.5 fL (81-99); MONOCYTES % 5.9 % (4.4-11.3); NEUTROPHILS # (AUTO) 10.8 (2.1-6.9); NEUTROPHILS % 65.4 % (38.7-80.0); PLATELET COUNT 682 x10e3/uL (140-360); RED BLOOD COUNT 2.64 x10e6/uL (3.6-5.1); RED CELL DISTRIBUTION WIDTH 20.1 % (11.7-14.4)
[2020-04-05 21:58] LABS: HEMOGLOBIN 6.9 g/dL (12.0-16.0)
--- NOTE | 2020-04-05 21:58 | Diagnostic Imaging Report ---
EXAMINATION: CHEST SINGLE (PORTABLE) INDICATION: ^Y ^cp ^[id number] ^[id number] COMPARISON: 01/27/2020 FINDINGS: AP view TUBES and LINES: Stable tracheostomy tube with tip at the level of the clavicles. LUNGS: Limited by rotation/positioning. Lungs are well inflated. Right upper lobe and left basilar airspace opacities. PLEURA: No pneumothorax. Suspected small left pleural effusion. HEART AND MEDIASTINUM: The cardiomediastinal silhouette is unremarkable. BONES AND SOFT TISSUES: No acute osseous lesion. Soft tissues are unremarkable. UPPER ABDOMEN: No free air under the diaphragm. IMPRESSION: Limited as above. Right upper lobe and left basilar airspace opacities, concerning for multifocal pneumonia. Suspected small left pleural effusion. Signed by: Dr. Alvarado Rosario MD on 04/05/2020 9:55 PM
[2020-04-05] MEDS ORDERED: SODIUM CHLORIDE 0.9% 250ML 250 ML IV ONE (22:00)
[2020-04-05 22:02] LABS: BILIRUBIN,URINE NEGATIVE (NEGATIVE); CLARITY,URINE CLOUDY (CLEAR); COLOR,URINE YELLOW (YELLOW); KETONES,URINE NEGATIVE (NEGATIVE); LEUKOCYTE ESTERASE ,URINE LARGE (NEGATIVE); NITRITE,URINE POSITIVE (NEGATIVE); PROTEIN,URINE DIPSTICK 2+ (NEGATIVE); URINE UROBILINOGEN 0.2 mg/dL (0.2 - 1)
[2020-04-05 22:08] LABS: AMORPHOUS SEDIMENT,URINE MODERATE (FEW); BACTERIA,URINE MODERATE /HPF
--- NOTE | 2020-04-05 22:19 | Emergency Department Note ---
History of Present Illnes History of Present Illness Chief Complaint: General Medicine Complaints History of Present Illness This is a 50 year old female arrives to the ED for abnormal lab work. Per [facility] records patient's hemoglobin was 6.1. Patient unable to provide history.. Historian: Senior Pensions Administrator/EMS Arrival Mode: [facility] EMS History limited by: condition of the patient Onset quality: unable to specify Progression: unable to specify Past Medical/Family History Physician Review I have reviewed the patient's past medical and family history. Any updates have been documented here. Past Medical History Unable to obtain PMH: other (trached) Recent Fever: No Clinical Suspicion of Infectio: No New/Unexplained Change in Ment: No Past Medical History: Hypertension Other Medical History: cerebral infarct, hemiplegia and hemiparesis, acute respiratory failure with hypercapnia, tracheostomy, alcohol abuse, tobacco abuse, abuse of other non=psychoactive substances. Other Surgery: GASTROSTOMY TUBE TRACHEA Social History Unable to obtain PSH: Unable to obtain due to, other (TRACHED) Other Last Tetanus: unknown Review of Systems ROS Narrative Unable to obtain ROS: Unable to obtain due to, altered mental status Physical Exam Related Data Allergies: Coded Allergies: No Known Allergies (Unverified , 11/28/19) Triage Vital Signs Vital Signs Date Time Temp Pulse Resp B/P (MAP) Pulse Ox O2 Delivery O2 Flow Rate FiO2 04/05/20 20:40 97.7 118 22 114/62 100 Trach Collar Vital signs reviewed: Yes Physical Exam CONSTITUTIONAL Constitutional: Present cachectic, Present ill appearing HENT HENT: Present normocephalic, Present atraumatic, Present oropharynx clear/moist, Present nose normal, Present other (+TRACHEOSTOMY ) HENT L/R: Present left ext ear normal, Present right ext ear normal EYES NECK PULMONARY Pulmonary: Present breath sounds normal CARDIOVASCULAR Cardiovascular: Present tachycardia GASTROINTESTINAL Abdominal: Present soft, Present other (+PEG) GENITOURINARY SKIN Skin: Present dry MUSCULOSKELETAL NEUROLOGICAL PSYCHOLOGICAL Results Laboratory Result Diagram: 04/05/202129 Laboratory Laboratory Tests Test 04/05/20 21:30 White Blood Count 16.50 x10e3/uL (4.8-10.8) Red Blood Count 2.64 x10e6/uL (3.6-5.1) Hemoglobin 6.9 g/dL (12.0-16.0) Hematocrit 21.0 % (34.2-44.1) Mean Corpuscular Volume 79.5 fL (81-99) Mean Corpuscular Hemoglobin 26.1 pg (28-32) Mean Corpuscular Hemoglobin Concent 32.9 g/dL (31-35) Red Cell Distribution Width 20.1 % (11.7-14.4) Platelet Count 682 x10e3/uL (140-360) Neutrophils (%) (Auto) 65.4 % (38.7-80.0) Lymphocytes (%) (Auto) 20.0 % (18.0-39.1) Monocytes (%) (Auto) 5.9 % (4.4-11.3) Eosinophils (%) (Auto) 6.8 % (0.0-6.0) Basophils (%) (Auto) 0.5 % (0.0-1.0) Neutrophils # (Auto) 10.8 (2.1-6.9) Lymphocytes # (Auto) 3.3 (1.0-3.2) Monocytes # (Auto) 1.0 (0.2-0.8) Eosinophils # (Auto) 1.1 (0.0-0.4) Basophils # (Auto) 0.1 (0.0-0.1) Absolute Immature Granulocyte (auto 0.23 x10e3/uL (0-0.1) Urine Color Yellow (YELLOW) Urine Clarity Cloudy (CLEAR) Urine pH 8.5 (5 - 7) Urine Specific [place] 1.015 (1.010-1.025) Urine Protein 2+ (NEGATIVE) Urine Glucose (UA) Negative (NEGATIVE) Urine Ketones Negative (NEGATIVE) Urine Blood Moderate (NEGATIVE) Urine Nitrite Positive (NEGATIVE) Urine Bilirubin Negative (NEGATIVE) Urine Urobilinogen 0.2 mg/dL (0.2 - 1) Urine Leukocyte Esterase Large (NEGATIVE) Lab results reviewed: Yes Assessment & Plan Medical Decision Making MDM 50-year-old female well known to the emergency department arrived for abnormal lab work. Patient known to have a hemoglobin of 6.9. Spoke to the patient's primary care doctor who recommended 1 unit of red blood cells in the ED and discharge back to the [facility]. Assessment & Plan Final Impression: (1) Anemia Depart Disposition: DIS TO SENIOR CARE BED Last Vital Signs Date Time Temp Pulse Resp B/P (MAP) Pulse Ox O2 Delivery O2 Flow Rate FiO2 04/05/20 20:40 97.7 118 22 114/62 100 Trach Collar Home Meds Reported Medications Insulin Lispro (HUMALOG) 100 Unit/1 Ml Insuln.pen 11/28/19 Bisacodyl (BISACODYL) 5 Mg Tablet.dr, 10 MG PO DAILY for constipation , TAB 11/28/19 Magnesium Hydroxide (MILK OF MAGNESIA) 2,400 Mg/10 Ml Oral.susp, 30 ML GT DAILY 11/28/19 Lisinopril (LISINOPRIL) 2.5 Mg Tablet, 2.5 MG GT Q12H PRN for ELEVATED BLOOD PRESSURE, #30 TAB 11/28/19 Atorvastatin Calcium (ATORVASTATIN CALCIUM) 20 Mg Tablet, 40 MG GT HS, #30 TAB 11/28/19 Aspirin (ASPIR 81) 81 Mg Tablet.dr, 81 MG GT DAILY for blood thinner 11/28/19 Acetaminophen (ACETAMINOPHEN) 325 Mg Tablet, 650 MG GT Q4HR PRN for BREAKTHROUGH PAIN for 5 Days, TAB 11/28/19 Medications in the ED Cefepime HCl 50 ml @ 100 mls/hr Q24H IV ; Start 04/05/20 at 20:45; Stop 04/12/20 at 20:44 Sodium Chloride 250 ml @ 0 mls/hr ONCE ONCE IV ; Start 04/05/20 at 22:00; Stop 04/05/20 at 22:01; Status JEMMA PHIPPS DO Apr 05, 2020 22:19
[2020-04-05 22:22] LABS: ALBUMIN 2.5 g/dL (3.5-5.0); ALBUMIN/GLOBULIN RATIO 0.4 (0.8-2.0); ANION GAP 16.7 mmol/L (8-16); CALCIUM 11.6 mg/dL (8.4-10.2); CREATININE, SERUM 4.88 mg/dL (0.57-1.11); POTASSIUM 3.7 mmol/L (3.5-5.1)
[2020-04-05 22:38] LABS: CREATINE KINASE MB 1.4 ng/mL (0-5.0)
[2020-04-06] MEDS ORDERED: METOPROLOL TARTRATE INJ 1 MG/ML VIAL ONE (05:23)
[2020-04-06] MEDS ORDERED: METOPROLOL TARTRATE INJ 1 MG/ML VIAL IV ONE ×2 (05:30→10:45)
--- NOTE | 2020-04-06 05:31 | NUR ---
Note tete in EDM - 04/06/20 at 0654 by KIMBERLY GUS SORENSEN CALLED AT THIS TIME. PTS LAB RESULTS WERE REC'D PER REQUEST AND WAS SENT TO [facility]. PTS ACCEPTANCE IS IN REVEIW AT THIS TIME.
--- NOTE | 2020-04-06 07:00 | NUR ---
received report from off going nurse. patient in room in bed. pending blood for transfusion.
--- NOTE | 2020-04-06 09:24 | NUR ---
spoke with pt's twin brother Terry Hardy and received telephone consent for blood transfustion. second nurse was Hector Recinos RN
[2020-04-06] MEDS ORDERED: SODIUM CHLORIDE 0.9% 250ML 250 ML ONE (11:45)
--- NOTE | 2020-04-06 15:37 | NUR ---
made three attempts to call [facility] to give report. nurse not available, said that they had already called for transportation.
== END 2020-04-06 17:19 ==
LOC: ER 20:35
DX: D64.9 Anemia, unspecified (principal); I10 Essential (primary) hypertension; I69.359 Hemiplegia and hemiparesis following cerebral infarction affecting unspecified side; Z93.0 Tracheostomy status; Z93.1 Gastrostomy status
CPT/HCPCS: 36415; 71045; 80053; 81001; 82550; 82553; 83605; 84484; 85025; 86850; 86870; 86880; 86900; 86905; 86920; 86922; 87040; 94002; 96374; 99001; 99284; J0692; J7050; P9016

== ENCOUNTER 2020-04-27 12:02 | Inpatient (IN) | payer OTHER ==
[~2020-04-27] VITALS: Ht 165.1 cm; Wt 95.4 kg
--- NOTE | 2020-04-27 12:22 | Emergency Department Note ---
History of Present Illnes History of Present Illness Chief Complaint: General Medicine Complaints History of Present Illness This is a 50 year old female Chief Complaint Comment PATIENT SENT FROM [facility] HGB 5.3, NEEDS BLOOD TX. PATIENT ALERT TO NAME, THIS IS BASELINE. CONTRACTED. TRACH, ON VENT. Historian: Registered Nurse Renal/EMS Arrival Mode: [facility] History limited by: other (CVA, aphasic) Location: Labs Quality: Low Hgb Radiation: Reports non-radiation Severity: moderate Onset quality: gradual Duration (how long): week(s) Timing of current episode: intermittent Progression: unable to specify Chronicity: recurrent Context: Denies recent illness, Denies recent surgery Relieving factors: none Exacerbating factors: none Associated symptoms: Reports denies other symptoms Treatments prior to arrival: none Past Medical/Family History Physician Review I have reviewed the patient's past medical and family history. Any updates have been documented here. Past Medical History Recent Fever: No Clinical Suspicion of Infectio: No New/Unexplained Change in Ment: No Past Medical History: Hypertension Other Medical History: cerebral infarct , hemiplegia and hemiparesis , acute respiratory failure with hypercapnia , tracheostomy, alcohol abuse, tobacco abuse, abuse of other non=psychoactive substances. METABOLIC ENCEPHALOPATHY Other Surgery: GASTROSTOMY TUBE TRACHEA Other Last Tetanus: unknown Review of Systems ROS Narrative Unable to obtain ROS: Unable to obtain due to (Known CVA aphasic) Physical Exam Related Data Allergies: Coded Allergies: No Known Allergies (Unverified , 11/28/19) Triage Vital Signs Vital Signs Date Time Temp Pulse Resp B/P (MAP) Pulse Ox O2 Delivery O2 Flow Rate FiO2 04/27/20 12:06 98.2 105 15 108/56 99 Trach Collar Vital signs reviewed: Yes Physical Exam CONSTITUTIONAL Constitutional: Present well-developed, Present well-nourished HENT HENT: Present normocephalic, Present atraumatic, Present oropharynx clear/moist, Present nose normal, Present other (Trach in place) HENT L/R: Present left ext ear normal, Present right ext ear normal EYES Eyes: Reports PERRL, Reports conjunctivae normal NECK Neck: Present ROM normal PULMONARY Pulmonary: Present effort normal, Present breath sounds normal CARDIOVASCULAR Cardiovascular: Present regular rhythm, Present heart sounds normal, Present capillary refill normal, Present normal rate GASTROINTESTINAL Abdominal: Present soft, Present nontender, Present bowel sounds normal GENITOURINARY Genitourinary: Present exam deferred SKIN Skin: Present warm, Present dry MUSCULOSKELETAL Musculoskeletal: Present ROM normal NEUROLOGICAL Neurological: Present other (Arms held in flexion) PSYCHOLOGICAL Psychological: Present other (Aphasic) Assessment & Plan Medical Decision Making MDM 50 year old female presents for anemia. Signs stable, within except limits. Examination appears to be largely patient's baseline. Hemoglobin shows 5.8. She was given 2 units of packed red blood cells and was discussed with Dr. Davis was agreed to admit for anemia anemia. Reassessment Reassessment time: 13:59 Reassessment Well appearing, NAD Assessment & Plan Final Impression: (1) Anemia Depart Disposition: ADMITTED Last Vital Signs Date Time Temp Pulse Resp B/P (MAP) Pulse Ox O2 Delivery O2 Flow Rate FiO2 04/27/20 12:06 98.2 105 15 108/56 99 Trach Collar Home Meds Reported Medications Insulin Lispro (HUMALOG) 100 Unit/1 Ml Insuln.pen 11/28/19 Bisacodyl (BISACODYL) 5 Mg Tablet.dr, 10 MG PO DAILY for constipation , TAB 11/28/19 Magnesium Hydroxide (MILK OF MAGNESIA) 2,400 Mg/10 Ml Oral.susp, 30 ML GT DAILY 11/28/19 Lisinopril (LISINOPRIL) 2.5 Mg Tablet, 2.5 MG GT Q12H PRN for ELEVATED BLOOD PRESSURE, #30 TAB 11/28/19 Atorvastatin Calcium (ATORVASTATIN CALCIUM) 20 Mg Tablet, 40 MG GT HS, #30 TAB 20 Aspirin (ASPIR 81) 81 Mg Tablet.dr, 81 MG GT DAILY for blood thinner 11/28/19 Acetaminophen (ACETAMINOPHEN) 325 Mg Tablet, 650 MG GT Q4HR PRN for BREAKTHROUGH PAIN for 5 Days, TAB 11/28/19 ROSE MARIE AVILA MD Apr 27, 2020 12:22
[2020-04-27 13:04] LABS: BASOPHILS # (AUTO) 0.1 (0.0-0.1); BASOPHILS % 0.4 % (0.0-1.0); EOSINOPHILS # (AUTO) 0.4 (0.0-0.4); EOSINOPHILS % 3.7 % (0.0-6.0); LYMPHOCYTES # (AUTO) 2.6 (1.0-3.2); MEAN CORPUSCULAR HEMOGLOBIN 26.5 pg (28-32); MEAN CORPUSCULAR HGB CONC 33.1 g/dL (31-35); MEAN CORPUSCULAR VOLUME 79.9 fL (81-99); MONOCYTES # (AUTO) 1.1 (0.2-0.8); MONOCYTES % 8.8 % (4.4-11.3); NEUTROPHILS # (AUTO) 7.5 (2.1-6.9); NEUTROPHILS % 62.8 % (38.7-80.0); PLATELET COUNT 554 x10e3/uL (140-360); RED BLOOD COUNT 2.19 x10e6/uL (3.6-5.1); RED CELL DISTRIBUTION WIDTH 16.7 % (11.7-14.4)
[2020-04-27 13:09] LABS: HEMATOCRIT 17.5 % (34.2-44.1); HEMOGLOBIN 5.8 g/dL (12.0-16.0)
[2020-04-27 13:17] LABS: INR 1.04; PROTHROMBIN TIME 14.1 seconds (11.9-14.5)
[2020-04-27 13:23] LABS: ALANINE AMINOTRANSFERASE 27 IU/L (0-55); ALBUMIN/GLOBULIN RATIO 0.6 (0.8-2.0); ALKALINE PHOSPHATASE 122 IU/L (40-150); ANION GAP 14.4 mmol/L (8-16); BLOOD UREA NITROGEN 28 mg/dL (7-26); BUN/CREATININE RATIO 28 (6-25); CALCIUM 11.6 mg/dL (8.4-10.2); CARBON DIOXIDE 23 mmol/L (22-29); CHLORIDE 103 mmol/L (98-107); EST GLOMERULAR FILTRATION RATE > 60 ML/MIN (60-); GLUCOSE 88 mg/dL (74-118); POTASSIUM 3.4 mmol/L (3.5-5.1); SODIUM 137 mmol/L (136-145)
[2020-04-27] MEDS ORDERED: SODIUM CHLORIDE 0.9% 250ML 250 ML IV ONE (13:30)
[2020-04-27 16:09] LABS: CLARITY,URINE CLOUDY (CLEAR); COLOR,URINE YELLOW (YELLOW)
[2020-04-27 16:10] LABS: BILIRUBIN,URINE NEGATIVE (NEGATIVE); KETONES,URINE NEGATIVE (NEGATIVE); LEUKOCYTE ESTERASE ,URINE LARGE (NEGATIVE); NITRITE,URINE POSITIVE (NEGATIVE); PROTEIN,URINE DIPSTICK 1+ (NEGATIVE); URINE UROBILINOGEN 0.2 mg/dL (0.2 - 1)
[2020-04-27 16:18] LABS: BACTERIA,URINE MODERATE /HPF; EPITHELIAL CELLS,URINE FEW /LPF; MUCUS,URINE MODERATE (RARE)
--- NOTE | 2020-04-27 17:45 | NUR ---
Nursing report given to Chelsey JIMENEZ.
--- NOTE | 2020-04-27 19:31 | NUR ---
Pt was departed at incorrect time, pt was transported to ICU by this RN and RT @ 1822. Pt stable during transport.
[2020-04-27 19:32] VITALS: BP 154/107
--- NOTE | 2020-04-27 19:33 | NUR ---
Consents for Blood transfusion and picc line placement obtained from brother Terry Hardy.
--- NOTE | 2020-04-27 19:41 | NUR ---
patient came to ICU in the shift change. patient is awake, open eyes but disoriented, non verbal. able to insert IV line to right wrist no 20 g. awaiting fro blood to be ready from lab. dr Alondra Castaneda aware pt is in the room, ordered to continue home meds, will continue to monitor.
[2020-04-27] MEDS ORDERED: ACETAMINOPHEN 325 MG TAB GT PRN (20:00)
[2020-04-27] MEDS ORDERED: DEXTROSE 50% SYRINGE 50 ML IV PRN (20:00)
[2020-04-27] MEDS ORDERED: LISINOPRIL 2.5 MG TAB GT PRN (20:00)
[2020-04-27 20:01] VITALS: BP 156/88
[2020-04-27 20:02] VITALS: BP 156/88
[2020-04-27] MEDS: INSULIN LISPRO 100 UNIT/1 ML 3ML VIAL SQ SCH (20:49)
[2020-04-27 21:46] VITALS: BP 123/74
[2020-04-27] MEDS: ATORVASTATIN 40 MG TAB GT SCH (21:46)
[2020-04-27 23:15] VITALS: BP 135/97
[2020-04-28] VITALS (23 sets, daily range): BP systolic 101–161; BP diastolic 54–118
[2020-04-28] MEDS ORDERED: SODIUM CHLORIDE 0.9% 250ML 250 ML ONE ×2 (03:32→12:34)
[2020-04-28] MEDS: INSULIN LISPRO 100 UNIT/1 ML 3ML VIAL SQ SCH ×4 (07:30→21:00)
[2020-04-28] MEDS: MAGNESIUM HYDROXIDE 30 ML UDC GT SCH (08:10)
[2020-04-28] MEDS: BISACODYL 5 MG TAB EC PO SCH (08:10)
[2020-04-28 08:42] LABS: BASOPHILS % 0.4 % (0.0-1.0); EOSINOPHILS # (AUTO) 0.4 (0.0-0.4); EOSINOPHILS % 3.8 % (0.0-6.0); HEMATOCRIT 24.5 % (34.2-44.1); LYMPHOCYTES # (AUTO) 1.7 (1.0-3.2); LYMPHOCYTES % 16.3 % (18.0-39.1); MEAN CORPUSCULAR HEMOGLOBIN 24.8 pg (28-32); MEAN CORPUSCULAR HGB CONC 32.7 g/dL (31-35); MEAN CORPUSCULAR VOLUME 75.9 fL (81-99); MONOCYTES # (AUTO) 0.8 (0.2-0.8); MONOCYTES % 8.2 % (4.4-11.3); NEUTROPHILS # (AUTO) 7.2 (2.1-6.9); NEUTROPHILS % 70.3 % (38.7-80.0); PLATELET COUNT 594 x10e3/uL (140-360); RED BLOOD COUNT 3.23 x10e6/uL (3.6-5.1); RED CELL DISTRIBUTION WIDTH 17.5 % (11.7-14.4)
[2020-04-28 09:25] LABS: BLOOD UREA NITROGEN 18 mg/dL (7-26); BUN/CREATININE RATIO 21 (6-25); CALCIUM 12.4 mg/dL (8.4-10.2); CARBON DIOXIDE 22 mmol/L (22-29); CHLORIDE 107 mmol/L (98-107); CREATININE, SERUM 0.85 mg/dL (0.57-1.11); EST GLOMERULAR FILTRATION RATE > 60 ML/MIN (60-); GLUCOSE 95 mg/dL (74-118); SODIUM 140 mmol/L (136-145)
[2020-04-28] MEDS ORDERED: POTASSIUM CHLORIDE 20MEQ/15ML UDC NG ONE (10:30)
[2020-04-28] MEDS ORDERED: POTASSIUM CHLORIDE 20MEQ/100ML 100 ML IV STA (10:41)
[2020-04-28 11:25] LABS: FERRITIN 911.2 ng/mL (4.63-204.00)
[2020-04-28] MEDS: METOPROLOL SUCCINATE 25 MG TAB XL PO SCH (12:01)
--- NOTE | 2020-04-28 12:01 | NUR ---
WOUND CARE CONSULT FOR 50 YO FEMALE HX OF ANEMIA JOSEPH 5 0N STRICT PUP STATUS AND INTERVENTIONS AND ALTERNATING PRESSURE MATTRESS LABS: WBC-11.87 HGB-2.19 GLUCOSE-88 SKIN ASSESSMENT COMPLETE PATIENT PRESENTS WITH SACRAL STAGE 4 ULCERATION 4CM X3CM X1CM UNDERMINING FROM 6 O'CLOCK TO 8 O'CLOCK 2CM RECOMMENDATIONS: NURSING TO CONTINUE TO MAINTAIN STRICT PUP STATUS AND INTERVENTIONS AND ALTERNATING PRESSURE MATTRESS NURSING TO CONTINUE TO ASSIST PATIENT OUT OF BED FOR MEALS AND MUCH TOLERATED NURSING TO CONTINUE TO ASSIST PATIENT NEEDED WITH MEALS AND NUTRITIONAL SUPPLEMENTS TO ENSURE PROPER REQUIREMENTS FOR HEALING NURSING TO CONTINUE TO OFFLOAD FEET AND HEELS NEEDED WITH PILLOW SUSPENSION WHEN IN BED NURSING TO CLEAN SACRAL STAGE 4 ULCERATION WITH NORMAL SALINE DAILY AND PACK WITH [employer] AND COVER WITH ALLEVYN FOAM DRESSING Addendum: 04/28/20 at 1216 by John Saavedra RN Amended: Links added.
--- NOTE | 2020-04-28 12:12 | Diagnostic Imaging Report ---
Chest, 1 view, 04/28/2020. History: Respiratory failure. Comparison: 04/05/2020. Findings: The cardiomediastinal silhouette and pulmonary vasculature are within normal limits for a portable exam. Patchy bilateral pulmonary opacities are unchanged. There is no evidence of pleural effusion. Tracheotomy is unchanged in position. There are no acute osseous or soft tissue abnormalities. Impression: No significant change. Signed by: James Vo on 04/28/2020 12:08 PM
--- NOTE | 2020-04-28 12:40 | NUR ---
Vance removed and replaced at this time per MD order, tolerated well, sterile technique maintained.
--- NOTE | 2020-04-28 13:48 | Consultation ---
DATE OF CONSULTATION: Critical Care consultation REASON FOR CONSULTATION: ICU management. CHIEF COMPLAINT: Contracted trach, on vent. Sent because the patient was in respiratory distress. HISTORY OF PRESENT ILLNESS: A 50-year-old female, well known to me from [facility]. The patient is in persistent vegetative state and unable to communicate. She has been here in the past. She has a history of tracheostomy, and PEG. She is vent dependent for most part. She has a previous history of stroke. REVIEW OF SYSTEMS: Unable to elicit any as the patient is nonverbal. PAST MEDICAL HISTORY: PEG tube, CVA, tracheostomy, gastrostomy, and noncommunicative. FAMILY AND SOCIAL HISTORY: Lives at the [facility]. PHYSICAL EXAMINATION: VITAL SIGNS: Temperature 98.4, pulse of 110, blood pressure 141/91, respiratory rate is 18. She has a tracheostomy and PEG tube. CHEST: Clear to auscultation bilaterally. No wheezing. HEART: S1, S2 audible. ABDOMEN: Soft. PEG tube EXTREMITIES: Contracted. No pedal edema. NEUROLOGICAL: She is in persistent vegetative state. LABORATORY DATA: No chest x-ray was done. Hemoglobin was 5.8 when she came in and she received 1 unit and hemoglobin is 8.0. ASSESSMENT: Ms. Manley is a 50-year-old female. She is in persistent vegetative state, has a tracheostomy and percutaneous endoscopic gastrostomy tube, here for management of anemia and respiratory failure. PLAN: Transfuse as needed. The patient's blood pressure has been stable. Continue the antihypertensive medication. Replace potassium. The patient remained on vent support, vent setting reviewed. Once the anemia is better and EGD is done, the patient can be tried on trach collar. She is for most part vent dependent at night and most part of the days, however she tolerates few hours of trach collar at [facility]. Critical care time spent 40 minutes. Thank you for this consult. Case discussed with Dr. Castaneda. MD GAURAV Sanchez/NEGAR /[id number]
[2020-04-28] MEDS: PIPER-TAZ 3.375 GM 50 ML IV SCH ×2 (14:00→22:44)
--- NOTE | 2020-04-28 15:18 | NUR ---
Nutrition Intervention Note RD Recommendation(s) for Physician: -Recommend modifying tube feeding to Vital AF 1.2 @ goal rate of 55 mL/hr to better meet nutritional needs (provides 1584 kcal, 99 g protein) -Water/fluid management per MD Plan of Care: RD following, monitoring for tolerance and adequacy, tube feeding recommendation Nutrition reason for involvement: enteral nutrition RD Assessment (04/28/20) Pt is a 50 year old female admitted with anemia. Unable to obtain nutrition history from pt. Pt is noted to be noncommunicative and is vent dependent with a PEG tube. Tube feedings of Nepro @ 30 mL/hr were ordered. Per weight history in chart, pt weighed 167-176 lbs from a previous admission in November 2019. Pt currently has a weight of 143 lbs in chart. If accurate, this would be a 14% weight loss in the past 5 months which is considered to be significant weight loss. Will continue to monitor. Principal Problems/Diagnoses: anemia PMH: PEG tube, CVA, tracheostomy, gastrostomy, and noncommunicative GI: soft/non-tender abdomen, last recorded BM 04/28 Skin: sacral stage 4 ulcer per wound care note Labs: (04/28) Na 140, K 3.0, BUN 18, Cr 0.85, Glu 95, Ca 12.4 Meds: metoprolol, lisinopril, milk of magnesia, dulcolax, antibiotic, insulin Ht: 65 inches Wt: 143 lbs BMI: 23.8 kg/m2 IBW: 125 lbs Malnutrition Evaluation (04/28/20) The patient does not meet criteria for a specified degree of malnutrition at this time. Will re-evaluate at follow-up as appropriate. Unable to fully assess at this time Energy intake: Unable to assess Weight loss: >10% in ~ 6 months (Chronic) Fat loss: unable to evaluate Muscle loss: unable to evaluate Supporting Evidence: Fluid accumulation: no edema per MD note Functional Status: unable to evaluate Nutrition Prescription (Diet Order): Nepro @ 30 mL/hr (provides 1296 kcal, 58 g protein) Estimated Nutritional Needs: 5103-1819 calories/day (20-25 kcal/kg CBW) 78-130 g protein/day (1.2-2 g pro/kg CBW) Diet Adequacy: Not meeting calorie needs, Not meeting protein needs Tolerance: Tolerance pending Diet Education Needs Assessment: Diet education is not indicated Nutrition Care Level: moderate Nutrition Diagnosis: Inadequate oral intake related to respiratory failure/vent dependent as evidenced by pt requiring enteral nutrition. Goal: Patient will meet 75-100% of estimated needs by follow up Progress: N/A Interventions: -Composition, Rate, Route, Recommended Modifications Monitoring/Evaluation: -Total energy intake, Total protein intake, Formula/Solution, Weight change Signed: Lanny Schumacher RD, LD
--- NOTE | 2020-04-28 17:00 | Diagnostic Imaging Report ---
Central line placement, 04/28/2020. History: Anemia. Comparison: None available. Lift Supervisor: Dr. Vo. Medication: 5 cc of 1% lidocaine without epinephrine. Conscious sedation: None. EBL: < 2 cc. Fluoroscopy time: 0.04 minutes. Fluoroscopy dose: 0.88 mGy (HIREN) Specimen: None. Technique: After informed consent and timeout procedure, the access site was prepped and draped with the standard maximal sterile barrier technique. Ultrasound images demonstrated vessel patency. Images were documented within PACS. The skin was anesthetized with lidocaine. The right internal jugular vein was accessed using a micropuncture set with ultrasound guidance. A 0.035-in. wire was advanced through the micropuncture sheath into the vein. The wire was advanced through the atrium into the IVC using fluoroscopic guidance. The tract was dilated. A 7 Upper Sorbian 16 cm triple-lumen central line was advanced over the wire into the vessel. The catheter was secured with suture. Dressing was applied. The patient tolerated the procedure well without evidence of complication. Postprocedure image demonstrates the line to terminate near the cavoatrial junction. IMPRESSION: Successful central line placement with ultrasound and fluoroscopic guidance guidance. Catheter is ready for immediate use. Signed by: James oV on 04/28/2020 4:57 PM
--- NOTE | 2020-04-28 17:00 | Diagnostic Imaging Report ---
Central line placement, 04/28/2020. History: Anemia. Comparison: None available. Reduction Furnace Operator: Dr. Vo. Medication: 5 cc of 1% lidocaine without epinephrine. Conscious sedation: None. EBL: < 2 cc. Fluoroscopy time: 0.04 minutes. Fluoroscopy dose: 0.88 mGy (HIREN) Specimen: None. Technique: After informed consent and timeout procedure, the access site was prepped and draped with the standard maximal sterile barrier technique. Ultrasound images demonstrated vessel patency. Images were documented within PACS. The skin was anesthetized with lidocaine. The right internal jugular vein was accessed using a micropuncture set with ultrasound guidance. A 0.035-in. wire was advanced through the micropuncture sheath into the vein. The wire was advanced through the atrium into the IVC using fluoroscopic guidance. The tract was dilated. A 7 Setswana 16 cm triple-lumen central line was advanced over the wire into the vessel. The catheter was secured with suture. Dressing was applied. The patient tolerated the procedure well without evidence of complication. Postprocedure image demonstrates the line to terminate near the cavoatrial junction. IMPRESSION: Successful central line placement with ultrasound and fluoroscopic guidance guidance. Catheter is ready for immediate use. Signed by: James Vo on 04/28/2020 4:57 PM
--- NOTE | 2020-04-28 17:31 | NUR ---
Blood noted in shields bag, Dr Joseph made aware, orders received to consult Dr Lurdes Muro. Answering service notified at this time.
[2020-04-28] MEDS: ATORVASTATIN 40 MG TAB GT SCH (21:33)
[2020-04-29] VITALS (28 sets, daily range): BP systolic 106–180; BP diastolic 63–103
[2020-04-29 04:59] LABS: BASOPHILS # (AUTO) 0.1 (0.0-0.1); BASOPHILS % 0.5 % (0.0-1.0); EOSINOPHILS # (AUTO) 0.4 (0.0-0.4); EOSINOPHILS % 4.1 % (0.0-6.0); HEMATOCRIT 25.8 % (34.2-44.1); HEMOGLOBIN 8.7 g/dL (12.0-16.0); LYMPHOCYTES # (AUTO) 2.3 (1.0-3.2); LYMPHOCYTES % 21.2 % (18.0-39.1); MEAN CORPUSCULAR HEMOGLOBIN 27.1 pg (28-32); MEAN CORPUSCULAR HGB CONC 33.7 g/dL (31-35); MEAN CORPUSCULAR VOLUME 80.4 fL (81-99); MONOCYTES # (AUTO) 1.1 (0.2-0.8); NEUTROPHILS # (AUTO) 6.8 (2.1-6.9); NEUTROPHILS % 63.1 % (38.7-80.0); PLATELET COUNT 528 x10e3/uL (140-360); RED BLOOD COUNT 3.21 x10e6/uL (3.6-5.1)
[2020-04-29 05:11] LABS: ANION GAP 13.5 mmol/L (8-16); BLOOD UREA NITROGEN 16 mg/dL (7-26); BUN/CREATININE RATIO 16 (6-25); CALCIUM 12.5 mg/dL (8.4-10.2); CARBON DIOXIDE 25 mmol/L (22-29); CHLORIDE 111 mmol/L (98-107); CREATININE, SERUM 0.98 mg/dL (0.57-1.11); EST GLOMERULAR FILTRATION RATE > 60 ML/MIN (60-); GLUCOSE 91 mg/dL (74-118); POTASSIUM 3.5 mmol/L (3.5-5.1); SODIUM 146 mmol/L (136-145)
[2020-04-29] MEDS: PIPER-TAZ 3.375 GM 50 ML IV SCH ×3 (05:53→21:25)
[2020-04-29] MEDS: INSULIN LISPRO 100 UNIT/1 ML 3ML VIAL SQ SCH ×4 (07:30→21:00)
[2020-04-29] MEDS: METOPROLOL SUCCINATE 25 MG TAB XL PO SCH ×2 (08:10→09:08)
[2020-04-29] MEDS: BISACODYL 5 MG TAB EC PO SCH ×2 (08:10→08:12)
[2020-04-29] MEDS: MAGNESIUM HYDROXIDE 30 ML UDC GT SCH ×2 (08:10→08:12)
[2020-04-29] MEDS: IRON SUCROSE 100 MG in SODIUM CHLORIDE 0.9% 100 ML 100 ML IV SCH (09:08)
[2020-04-29] MEDS ORDERED: PROPOFOL IV EMULSION 10 MG/ML 20 ML VIAL ONE (14:13)
--- NOTE | 2020-04-29 18:04 | Operative Report ---
DATE OF PROCEDURE: 04/29/2020 SURGEON: Parish Castaneda MD PROCEDURE: EGD with biopsies note. INDICATION FOR EGD: Anemia, positive occult blood in stool. MEDICATIONS: The patient was done under MAC, please see anesthesiologist's note. PROCEDURE IN DETAIL: With the patient in the left lateral decubitus position, a flexible fiberoptic Olympus gastroscope was introduced into the esophagus under direct visualization without any difficulty. There was some patchy erythema noted in distal esophagus. The scope was then advanced with ease into the stomach, traversing a small sliding hiatal hernia. Mucosa overlying the antrum and the body revealed some patchy areas of erythema. There was an approximately 5 mm ulcer noted in the proximal antrum along the greater curvature without active bleeding or stigmata of recent hemorrhage. Biopsies were obtained. The PEG tube bumper was noted to be in good position. The pylorus was intubated with ease and the scope was advanced all the way to the second portion of the duodenum. Mucosa overlying the proximal second portion and the duodenal bulb appeared to be within normal limits. The scope was then withdrawn back into the stomach and retroflexed, and mucosa overlying the fundus and cardia appeared to be within normal limits. The scope was then straightened out, it was subsequently withdrawn. The patient tolerated the procedure well. IMPRESSION: 1. Distal esophagitis, mild. 2. Small sliding hiatal hernia. 3. Gastritis, mild. 4. Gastric ulcer, proximal antrum approximately 5 mm in size, superficial without active bleeding or stigmata of recent hemorrhage, biopsied. 5. PEG tube bumper in good position. PLAN: 1. Follow up histology. 2. Continue current therapy. Parish Castaneda MD [facility]/MOD[facility] /[id number] cc: Christian Castaneda MD
--- NOTE | 2020-04-29 18:53 | NUR ---
Wound care done to sacrum per Wound care nurse instructions. Patient tolerated trach collar for about 5 hours today before being placed back on ventilator. Patient went for EGD at about 1700 and returned to room about half an hour later. Dr. Muro rounded and ordered CT scan.
[2020-04-29] MEDS: ATORVASTATIN 40 MG TAB GT SCH (21:25)
--- NOTE | 2020-04-29 22:34 | Consultation ---
DATE OF CONSULTATION: 04/29/2020 Urology Consultation REASON FOR CONSULTATION: Gross hematuria and urinary tract infection. HISTORY OF PRESENT ILLNESS: Bebo Manley is a debilitated, unfortunate 50-year-old woman who is status post CVA. She has also had a craniotomy. The patient has a tracheostomy in place and she had stage IV decubiti for which she has been managed with a Vance catheter. The first Vance catheter was changed after noticing gross hematuria. The patient has had some irrigation by the nurses with clearing of the gross hematuria and urological consultation was subsequently sought. The patient is currently post EGD and is unable to provide an adequate history. The patient is currently hospitalized in the ICU. She came for severe anemia and she was transfused. It is unclear whether she has had any previous urological procedure or history of urolithiasis in the past. PAST MEDICAL SURGICAL HISTORY: 1. PEG tube. 2. CVA. 3. Tracheostomy. 4. Gastrostomy. 5. Noncommunicative. 6. Status post craniotomy. 7. Decubitus ulcers. FAMILY HISTORY: Noncontributory to the active urological problems. SOCIAL HISTORY: The patient is a care home resident. She is currently [facility] due to severe anemia with a hemoglobin of 5.8. CURRENT MEDICATIONS: Please refer to the MAR. ALLERGIES: NONE KNOWN. REVIEW OF SYSTEMS: It is believed to be consistent with above history of present illness past medical history, and otherwise, believed to be negative for all systems. PHYSICAL EXAMINATION: GENERAL: Debilitated, chronically ill-appearing woman with a tracheostomy, lying in bed, in no apparent distress. She is currently afebrile. VITAL SIGNS: Currently stable. ABDOMEN: Soft, nondistended, seemingly nontender. There is a PEG tube in place. GENITOURINARY: The Vance catheter in place draining relatively clear urine out. For the remaining physical examination systems, please refer to the admission history and physical on the chart. LABORATORY STUDIES: Urine culture shows gram-negative rods and sensitivities and identification are pending. White blood cell count is 10,810. Hemoglobin 8.7, platelets 528,000. The patient's creatinine is normal at 0.98. Her sodium is slightly high at 146, calcium is elevated at 12.5. Urinalysis shows microhematuria and pyuria. The patient is COVID negative. There is no urologically relevant radiographic studies in the chart in the electronic medical record except for an abdominal ultrasound on November 30, 2019, which showed that the left kidney is not visible. ASSESSMENT: 1. Complicated urinary tract infection. 2. Gross hematuria. 3. Leukocytosis. 4. Anemia. 5. Hypernatremia. 6. Hypercalcemia. 7. Vance catheter in situ. 8. Presumed urinary incontinence. 9. Presumed neurogenic bladder. 10. Possible solitary kidney. PLAN: 1. Intravenous antibiotics. 2. I defer the hematological and electrolyte abnormalities to the primary team. 3. I will order CT to see where her left kidney may be and evaluate for any other etiology for hematuria. We will perform that study as a hematuria protocol. Thank you much for involving us in care of your patient. We will be happy to follow her along with you as well as an outpatient. Jhony Muro MD [place]/NEGAR /[id number]
[2020-04-29] MEDS ORDERED: SODIUM CHLORIDE 0.9% 250ML 250 ML ONE (22:52)
[2020-04-29] MEDS ORDERED: IOPAMIDOL 370 MG/ML 200 ML INFUS..BTL INJ ONE (22:52)
[2020-04-30] VITALS (19 sets, daily range): BP systolic 122–166; BP diastolic 61–99
[2020-04-30] MEDS: PIPER-TAZ 3.375 GM 50 ML IV SCH ×2 (05:29→13:27)
[2020-04-30] MEDS: INSULIN LISPRO 100 UNIT/1 ML 3ML VIAL SQ SCH ×3 (07:15→17:56)
[2020-04-30] MEDS: IRON SUCROSE 100 MG in SODIUM CHLORIDE 0.9% 100 ML 100 ML IV SCH (08:18)
[2020-04-30] MEDS: METOPROLOL SUCCINATE 25 MG TAB XL PO SCH (08:20)
[2020-04-30] MEDS: MAGNESIUM HYDROXIDE 30 ML UDC GT SCH (09:00)
[2020-04-30] MEDS: BISACODYL 5 MG TAB EC PO SCH (09:00)
--- NOTE | 2020-04-30 09:35 | Diagnostic Imaging Report ---
EXAM: CT Abdomen and Pelvis WITHOUT and WITH contrast INDICATION: hematuria protocol. ? solitary kidney on prior u/s COMPARISON: Ultrasound abdomen dated 11/30/2019. TECHNIQUE: Abdomen and pelvis were scanned utilizing a multidetector helical scanner from the lung base to the pubic symphysis before and after administration of IV contrast. Coronal and sagittal reformations were obtained. Routine protocol was performed. Scan was performed when during portal venous phase. IV CONTRAST: 150 mL of Omnipaque 300 ORAL CONTRAST: Water COMPLICATIONS: None RADIATION DOSE: Total DLP: 1010.18 mGy-cm Estimated effective dose: (DLP x 0.015 x size factor) mSv CTDIvol has been reviewed. It is below the limits set by the Radiation Protocol Committee (RPC). FINDINGS: LINES and TUBES: There is gastrostomy tube in place. LOWER THORAX: There is bibasilar subsegmental atelectasis. HEPATOBILIARY: No focal hepatic lesions. No biliary ductal dilation. GALLBLADDER: No radio-opaque stones or sludge. No gallbladder wall thickening. SPLEEN: No splenomegaly. No focal splenic lesion. PANCREAS: No focal masses or ductal dilatation. ADRENALS: No adrenal nodules KIDNEYS/URETERS/BLADDER: Right kidney: Normal in size and demonstrates normal enhancement. No hydronephrosis or perinephric stranding. Cyst: None. Mass: None. Stones: No definite calculus. There are Duncan's plaques. Left kidney: Normal in size and demonstrates normal enhancement. No hydronephrosis or perinephric stranding. Cyst: None. Mass: None. Stones: No definite calculus. There are Duncan's plaques. Upper collecting systems: No irregularities or filling defects. Ureters: Bladder: The bladder is incompletely distended and evaluated due to placement Vance catheter. There is mild bladder wall irregularity likely due to underdistention. Prostate: Unremarkable Urethra: Unremarkable GI TRACT: There is marked fecal retention within the rectum with associated rectal wall thickening compatible with stercoral colitis. No definite signs of ischemia. No abnormal distention or evidence of bowel obstruction. PELVIC ORGANS: The uterus is unremarkable. LYMPH NODES: No lymphadenopathy. VESSELS: No aortic aneurysm or dissection. PERITONEUM / RETROPERITONEUM: No free air or fluid. BONES: Unremarkable. SOFT TISSUES: Unremarkable. IMPRESSION: 1. Bilateral Duncan's plaques with no nephrolithiasis or hydronephrosis. 2. No renal mass or cystic lesion. 3. The bladder is incompletely distended and evaluated due to placement Vance catheter. There is mild bladder wall irregularity likely due to underdistention. 4. Marked fecal retention within the rectum with associated rectal wall thickening compatible with stercoral colitis. No definite signs of ischemia. Signed by: Bang Reyes MD on 04/30/2020 9:31 AM
[2020-04-30] MEDS ORDERED: MIDAZOLAM HCL 5 MG/ML VIAL ONE (12:03)
[2020-04-30 13:37] LABS: BASOPHILS # (AUTO) 0.1 (0.0-0.1); BASOPHILS % 0.4 % (0.0-1.0); EOSINOPHILS # (AUTO) 0.5 (0.0-0.4); EOSINOPHILS % 3.8 % (0.0-6.0); HEMATOCRIT 27.7 % (34.2-44.1); HEMOGLOBIN 8.8 g/dL (12.0-16.0); LYMPHOCYTES # (AUTO) 2.5 (1.0-3.2); MEAN CORPUSCULAR HEMOGLOBIN 25.4 pg (28-32); MEAN CORPUSCULAR HGB CONC 31.8 g/dL (31-35); MEAN CORPUSCULAR VOLUME 80.1 fL (81-99); MONOCYTES # (AUTO) 1.1 (0.2-0.8); MONOCYTES % 8.4 % (4.4-11.3); NEUTROPHILS # (AUTO) 8.4 (2.1-6.9); NEUTROPHILS % 66.7 % (38.7-80.0); PLATELET COUNT 593 x10e3/uL (140-360); RED BLOOD COUNT 3.46 x10e6/uL (3.6-5.1); RED CELL DISTRIBUTION WIDTH 17.9 % (11.7-14.4)
--- NOTE | 2020-04-30 18:54 | NUR ---
Patient to return to [facility] per Dr. Kristopher Castaneda. Orders given to remove central line. Report called to [facility]. Patient's brother called Félix Hardy notified and ok with transfer back to [facility].
--- NOTE | 2020-04-30 19:30 | NUR ---
DISCHARGED TO [facility], TRANSPORTED BY [facility] ON TRACH COLLAR, SETTINGS VERIFIED BY GEE ROOT
== END 2020-04-30 19:35 | DRG 871 ==
LOC: ER 13:13 → ERHOLD 13:55 → ICU 18:51
PROC: 5A1945Z Respiratory Ventilation, 24-96 Consecutive Hours (ICD-10-PCS; principal; 2020-04-27)
PROC: B548ZZA Ultrasonography of Superior Vena Cava, Guidance (ICD-10-PCS; 2020-04-28)
PROC: 30243N1 Transfusion of Nonautologous Red Blood Cells into Central Vein, Percutaneous Approach (ICD-10-PCS; 2020-04-28)
PROC: 02HV33Z Insertion of Infusion Device into Superior Vena Cava, Percutaneous Approach (ICD-10-PCS; 2020-04-28)
PROC: 0DB68ZX Excision of Stomach, Via Natural or Artificial Opening Endoscopic, Diagnostic (ICD-10-PCS; 2020-04-29)
DX: A41.9 Sepsis, unspecified organism (principal); K25.4 Chronic or unspecified gastric ulcer with hemorrhage; L89.154 Pressure ulcer of sacral region, stage 4; J96.10 Chronic respiratory failure, unspecified whether with hypoxia or hypercapnia; Z99.11 Dependence on respirator [ventilator] status; I69.359 Hemiplegia and hemiparesis following cerebral infarction affecting unspecified side; R40.3 Persistent vegetative state; N39.0 Urinary tract infection, site not specified; E87.0 Hyperosmolality and hypernatremia; Z16.12 Extended spectrum beta lactamase (ESBL) resistance; N31.9 Neuromuscular dysfunction of bladder, unspecified; N39.498 Other specified urinary incontinence; K20.9 Esophagitis, unspecified; K44.9 Diaphragmatic hernia without obstruction or gangrene; K29.70 Gastritis, unspecified, without bleeding; D64.9 Anemia, unspecified; I69.320 Aphasia following cerebral infarction; Z93.1 Gastrostomy status; Z93.0 Tracheostomy status; I10 Essential (primary) hypertension; Z74.01 Bed confinement status; Z11.59 Encounter for screening for other viral diseases; R31.0 Gross hematuria; E83.52 Hypercalcemia; Z79.82 Long term (current) use of aspirin; Z79.4 Long term (current) use of insulin; B96.5 Pseudomonas (aeruginosa) (mallei) (pseudomallei) as the cause of diseases classified elsewhere; B96.4 Proteus (mirabilis) (morganii) as the cause of diseases classified elsewhere
CPT/HCPCS: 36415; 36556; 43239; 71045; 74178; 74470; 76937; 77001; 80048; 80053; 81001; 81025; 82270; 82607; 82728; 82746; 82948; 83540; 84466; 85025; 85045; 85610; 86850; 86870; 86880; 86900; 86905; 86920; 86922; 87086; 87186; 88305; 88312; 94002; 94003; 99001; 99251; 99285; J1756; J2250; J2543; J7050; P9016; Q9967; U0002

== ENCOUNTER 2020-06-20 23:09 | Inpatient (IN) | payer OTHER ==
[~2020-06-20] VITALS: Ht 152.4 cm; Wt 64.0 kg
[2020-06-20] MEDS ORDERED: PIPER-TAZ 3.375 GM 50 ML IV STA (23:14)
[2020-06-20] MEDS ORDERED: SODIUM CHLORIDE 0.9% 1000ML 1,000 ML IV STA ×2 (23:14→23:55)
[2020-06-20] MEDS ORDERED: SODIUM CHLORIDE 0.9% 250ML 250 ML IV ONE (23:15)
[2020-06-20] MEDS ORDERED: ACETAMINOPHEN 1000 MG/100 ML IV STA (23:26)
--- NOTE | 2020-06-20 23:26 | Emergency Department Note ---
History of Present Illnes History of Present Illness History of Present Illness This is a 50 year old female with PMH of CVA brought from the [facility] for evaluation of HgB of 6.8 .Noted to be febrile and tachycardic prior to arrival . Historian: Kier Drier/EMS, Medical Record EMS Treatment QA AUTOMATION ENGINEER: See EMS Report History limited by: condition of the patient Onset (how long ago): hour(s) Radiation: Reports non-radiation Severity: severe Onset quality: gradual Duration (how long): hour(s) Timing of current episode: constant Progression: worsening Chronicity: new Context: Reports recent illness Relieving factors: none Exacerbating factors: none Associated symptoms: Reports fever/chills, Reports weakness Treatments prior to arrival: none Past Medical/Family History Physician Review I have reviewed the patient's past medical and family history. Any updates have been documented here. Past Medical History Past Medical History: Hypertension Other Medical History: cerebral infarct , hemiplegia and hemiparesis , acute respiratory failure with hypercapnia , tracheostomy, alcohol abuse, tobacco abuse, abuse of other non=psychoactive substances. METABOLIC ENCEPHALOPATHY Other Surgery: GASTROSTOMY TUBE TRACHEA Social History Smoking Cessation: Never Smoker Alcohol Use: None Any Illegal Drug Use: No Other Last Tetanus: unknown Review of Systems ROS Narrative Unable to obtain ROS: altered mental status, critical patient Review of Systems Constitutional: Reports weakness Physical Exam Related Data Allergies: Coded Allergies: No Known Allergies (Unverified , 11/28/19) Triage Vital Signs Vital Signs Date Time Temp Pulse Resp B/P (MAP) Pulse Ox O2 Delivery O2 Flow Rate FiO2 06/20/20 23:15 125 20 100 20.0 100 06/20/20 23:31 100.7 106/73 Mechanical Ventilator Vital signs reviewed: Yes Physical Exam CONSTITUTIONAL Constitutional: Present cachectic, Present diaphoretic HENT HENT: Present normocephalic, Present atraumatic, Present oropharynx clear/moist, Present nose normal HENT L/R: Present left ext ear normal, Present right ext ear normal EYES Eyes: Reports PERRL, Reports conjunctivae normal NECK Neck: Present ROM normal PULMONARY Pulmonary: Present effort normal, Present breath sounds normal CARDIOVASCULAR Cardiovascular: Present heart sounds normal, Present tachycardia GASTROINTESTINAL Abdominal: Present soft, Present nontender, Present bowel sounds normal GENITOURINARY Genitourinary: Present exam deferred SKIN Skin: Present pale MUSCULOSKELETAL Musculoskeletal: Present ROM normal NEUROLOGICAL Neurological: Present alert, Present abnormal DTRs, Present abnormal coordination; Absent DTRs normal PSYCHOLOGICAL Psychological: Present mood/affect normal, Present judgement normal Results Laboratory Lab results reviewed: Yes Laboratory comments Laboratory Tests Test 06/20/20 23:46 06/20/20 23:36 06/20/20 23:19 Urine Color Yellow (YELLOW) Urine Clarity Sl cloudy (CLEAR) Urine pH 5.5 (5 - 7) Urine Specific Dorris 1.020 (1.010-1.025) Urine Protein 2+ (NEGATIVE) Urine Glucose (UA) Negative (NEGATIVE) Urine Ketones Negative (NEGATIVE) Urine Blood Small (NEGATIVE) Urine Nitrite Negative (NEGATIVE) Urine Bilirubin Negative (NEGATIVE) Urine Urobilinogen 0.2 mg/dL (0.2 - 1) Urine Leukocyte Esterase Small (NEGATIVE) Urine RBC 6-10 /HPF (0-5) Urine WBC 6-10 /HPF (0-5) Urine Epithelial Cells Few /LPF (NONE) Urine Amorphous Sediment Many (FEW) Urine Bacteria Moderate /HPF (NONE) White Blood Count 26.99 x10e3/uL (4.8-10.8) Red Blood Count 2.91 x10e6/uL (3.6-5.1) Hemoglobin 7.5 g/dL (12.0-16.0) Hematocrit 23.3 % (34.2-44.1) Mean Corpuscular Volume 80.1 fL (81-99) Mean Corpuscular Hemoglobin 25.8 pg (28-32) Mean Corpuscular Hemoglobin Concent 32.2 g/dL (31-35) Red Cell Distribution Width 17.2 % (11.7-14.4) Platelet Count 581 x10e3/uL (140-360) Neutrophils (%) (Auto) 80.2 % (38.7-80.0) Lymphocytes (%) (Auto) 12.0 % (18.0-39.1) Monocytes (%) (Auto) 5.6 % (4.4-11.3) Eosinophils (%) (Auto) 0.6 % (0.0-6.0) Basophils (%) (Auto) 0.5 % (0.0-1.0) Neutrophils # (Auto) 21.6 (2.1-6.9) Lymphocytes # (Auto) 3.3 (1.0-3.2) Monocytes # (Auto) 1.5 (0.2-0.8) Eosinophils # (Auto) 0.2 (0.0-0.4) Basophils # (Auto) 0.1 (0.0-0.1) Absolute Immature Granulocyte (auto 0.31 x10e3/uL (0-0.1) Sodium Level 145 mmol/L (136-145) Potassium Level 3.8 mmol/L (3.5-5.1) Chloride Level 109 mmol/L (98-107) Carbon Dioxide Level 23 mmol/L (22-29) Anion Gap 16.8 mmol/L (8-16) Blood Urea Nitrogen 50 mg/dL (7-26) Creatinine 1.48 mg/dL (0.57-1.11) Estimat Glomerular Filtration Rate 46 ML/MIN (60-) BUN/Creatinine Ratio 34 (6-25) Glucose Level 109 mg/dL (74-118) Lactic Acid Level 1.2 mmol/L (0.5-2.0) Calcium Level 13.3 mg/dL (8.4-10.2) Total Bilirubin 0.4 mg/dL (0.2-1.2) Aspartate Amino Transf (AST/SGOT) 188 IU/L (5-34) Alanine Aminotransferase (ALT/SGPT) 290 IU/L (0-55) Alkaline Phosphatase 235 IU/L (40-150) Creatine Kinase 113 IU/L (29-168) Creatine Kinase MB ng/mL (0-5.0) Troponin I 0.031 ng/mL (0-0.300) Total Protein 10.2 g/dL (6.5-8.1) Albumin 2.2 g/dL (3.5-5.0) Globulin 8.0 g/dL (2.3-3.5) Albumin/Globulin Ratio 0.3 (0.8-2.0) Imaging Imaging results reviewed: Yes Impressions [place] [id number] Patient Name: VINH WARREN MR #: [id number] : 1970 Age/Sex: 50/F Req #: [id number] Adm Physician: STEVEN NULL MD Ordered by: TIM ALEJANDRE DO Report #: [id number] Location: ICU Room/Bed: ICU [facility] ___ Procedure: [id number] DX/CHEST SINGLE (PORTABLE) Exam Date: 06/20/20 Exam Time: 9 REPORT STATUS: Signed EXAMINATION: CHEST SINGLE (PORTABLE) INDICATION: Fever and tachycardia. COMPARISON: Radiograph dated 04/28/2020. FINDINGS: Patient rotation mildly limits evaluation. Tracheostomy tube tip projects between the clavicular heads. Confluent left base opacity obscures the left heart border. Linear strands of atelectasis or scarring in the right lower lung. Pulmonary vessels are nondistended. Skin fold at the right lung apex. No pneumothorax. IMPRESSION: New confluent left base opacity could represent any combination of pneumonia, pleural effusion, and/or atelectasis. Signed by: Adan Conte MD on 06/21/2020 1:05 AM Dictated By: ADAN CONTE MD 4 Transcribed By: BERE on 06/21/20104 COPY TO: TIM ALEJANDRE DO~ Procedures 12 Lead ECG Interpretation ECG Interpretation : ECG: ECG 1 [employer] Driver: Interpreted by ED physician Date: Jun 20, 2020 Time: 23:24 Prior ECG tracings: reviewed Rhythm: sinus tachycardia Rate: tachycardia BPM: 216 QRS axis: normal ST segments normal: Yes T waves normal: Yes Clinical Impression: abnormal ECG Central Line Placement Central Line Location: right femoral Time out performed: Yes Patient Placed on Monitor/Puls: Yes Prep: mask, gown, gloves, other Local Anesthetic: lidocaine 1% Amount of anesthesia used (mL): 5 Central Line Lumen Inserted: triple Post Procedure: sutured in place, good blood return, all ports aspirated/flushed/capped, sterile dressing applied Post Procedure X-ray: tip of catheter in good condition Patient tolerated procedure: well Complications: none Additional comments Time of procedure 00:09 on Critical Care Time Total Critical Care Time (min): 31 Critcal care necessary due to: sepsis Critcal care time spent by me: blood dram for specimens, develop tx plan w patient/surrogate, discussion w consultants, discussion w primary provider, evaluation patient response to tx, examination of patient, obtaining hx from patient/surrogate, order/perform tx or interventions, order/review laboratory studies, order/review radiographic studies, pulse oximetry, re-evaluation of patient condition, review of old charts Assessment & Plan Medical Decision Making MDM Diff Dx : sepsis, GIB, ACS, PNA, UTI Assessment & Plan Final Impression: (1) Sepsis (2) Hypercalcemia (3) UTI (urinary tract infection) (4) Renal failure (5) Pneumonia Depart Disposition: ADMITTED Home Meds Reported Medications Insulin Lispro (HUMALOG) 100 Unit/1 Ml Insuln.pen 11/28/19 Bisacodyl (BISACODYL) 5 Mg Tablet.dr, 10 MG PO DAILY for constipation , TAB 11/28/19 Magnesium Hydroxide (MILK OF MAGNESIA) 2,400 Mg/10 Ml Oral.susp, 30 ML GT DAILY 11/28/19 Lisinopril (LISINOPRIL) 2.5 Mg Tablet, 2.5 MG GT Q12H PRN for ELEVATED BLOOD PRESSURE, #30 TAB 11/28/19 Atorvastatin Calcium (ATORVASTATIN CALCIUM) 20 Mg Tablet, 40 MG GT HS, #30 TAB 11/28/19 Aspirin (ASPIR 81) 81 Mg Tablet.dr, 81 MG GT DAILY for blood thinner 11/28/19 Acetaminophen (ACETAMINOPHEN) 325 Mg Tablet, 650 MG GT Q4HR PRN for BREAKTHROUGH PAIN for 5 Days, TAB 11/28/19 Medications in the ED Sodium Chloride 1,000 ml @ 0 mls/hr Q0M STAT IV ; Start 06/20/20 at 23:14; Stop 06/20/20 at 23:18; Status DC Piperacillin Sod/ Tazobactam Sod 50 ml @ 50 mls/hr ONCE STAT IV ; Start 06/20/20 at 23:14; Stop 06/21/20 at 00:13 Sodium Chloride 250 ml @ 0 mls/hr ONCE ONCE IV ; Start 06/20/20 at 23:15; Stop 06/20/20 at 23:18; Status TIM GEORGES DO Jun 20, 2020 23:26
[2020-06-20 23:34] LABS: BASOPHILS # (AUTO) 0.1 (0.0-0.1); BASOPHILS % 0.5 % (0.0-1.0); EOSINOPHILS # (AUTO) 0.2 (0.0-0.4); EOSINOPHILS % 0.6 % (0.0-6.0); HEMATOCRIT 23.3 % (34.2-44.1); HEMOGLOBIN 7.5 g/dL (12.0-16.0); LYMPHOCYTES # (AUTO) 3.3 (1.0-3.2); MEAN CORPUSCULAR HEMOGLOBIN 25.8 pg (28-32); MEAN CORPUSCULAR HGB CONC 32.2 g/dL (31-35); MEAN CORPUSCULAR VOLUME 80.1 fL (81-99); MONOCYTES # (AUTO) 1.5 (0.2-0.8); MONOCYTES % 5.6 % (4.4-11.3); NEUTROPHILS # (AUTO) 21.6 (2.1-6.9); NEUTROPHILS % 80.2 % (38.7-80.0); PLATELET COUNT 581 x10e3/uL (140-360); RED BLOOD COUNT 2.91 x10e6/uL (3.6-5.1); RED CELL DISTRIBUTION WIDTH 17.2 % (11.7-14.4)
[2020-06-20 23:44] LABS: BILIRUBIN,URINE NEGATIVE (NEGATIVE); CLARITY,URINE SL CLOUDY (CLEAR); COLOR,URINE YELLOW (YELLOW); KETONES,URINE NEGATIVE (NEGATIVE); LEUKOCYTE ESTERASE ,URINE SMALL (NEGATIVE); NITRITE,URINE NEGATIVE (NEGATIVE); PROTEIN,URINE DIPSTICK 2+ (NEGATIVE); URINE UROBILINOGEN 0.2 mg/dL (0.2 - 1)
[2020-06-20 23:48] LABS: ALANINE AMINOTRANSFERASE 290 IU/L (0-55); ALBUMIN 2.2 g/dL (3.5-5.0); ALBUMIN/GLOBULIN RATIO 0.3 (0.8-2.0); ALKALINE PHOSPHATASE 235 IU/L (40-150); ANION GAP 16.8 mmol/L (8-16); BLOOD UREA NITROGEN 50 mg/dL (7-26); BUN/CREATININE RATIO 34 (6-25); CARBON DIOXIDE 23 mmol/L (22-29); CHLORIDE 109 mmol/L (98-107); CREATINE KINASE 113 IU/L (29-168); CREATININE, SERUM 1.48 mg/dL (0.57-1.11); EST GLOMERULAR FILTRATION RATE 46 ML/MIN (60-); GLUCOSE 109 mg/dL (74-118); POTASSIUM 3.8 mmol/L (3.5-5.1); SODIUM 145 mmol/L (136-145)
[2020-06-20 23:50] LABS: AMORPHOUS SEDIMENT,URINE MANY (FEW); BACTERIA,URINE MODERATE /HPF; EPITHELIAL CELLS,URINE FEW /LPF
[2020-06-20 23:52] LABS: CALCIUM 13.3 mg/dL (8.4-10.2)
[2020-06-21] VITALS (65 sets, daily range): BP systolic 65–133; BP diastolic 33–90
[2020-06-21] MEDS ORDERED: ACETAMINOPHEN 1000 MG/100 ML 100 ML IV ONE (00:04)
--- NOTE | 2020-06-21 00:24 | NUR ---
dr hancock had a conversation w/ dr jiménez regarding calcium level, iv hydration has been ordered, no further orders at this time.
--- NOTE | 2020-06-21 00:25 | NUR ---
right femoral central line placed by dr hancock , patient tolerated procedure well
[2020-06-21] MEDS ORDERED: SODIUM CHLORIDE 0.9% 1000ML 1,000 ML IV ONE (00:30)
--- NOTE | 2020-06-21 01:09 | Diagnostic Imaging Report ---
EXAMINATION: CHEST SINGLE (PORTABLE) INDICATION: Fever and tachycardia. COMPARISON: Radiograph dated 04/28/2020. FINDINGS: Patient rotation mildly limits evaluation. Tracheostomy tube tip projects between the clavicular heads. Confluent left base opacity obscures the left heart border. Linear strands of atelectasis or scarring in the right lower lung. Pulmonary vessels are nondistended. Skin fold at the right lung apex. No pneumothorax. IMPRESSION: New confluent left base opacity could represent any combination of pneumonia, pleural effusion, and/or atelectasis. Signed by: Kameron Orellana MD on 06/21/2020 1:05 AM
[2020-06-21] MEDS ORDERED: FERROUS SU220 MG/51 PEG (01:44)
[2020-06-21] MEDS ORDERED: NORCO 10-325 T1 EACH PO (01:44)
[2020-06-21] MEDS ORDERED: IPRATROPIU0.2 MG/1 M NEB (01:44)
[2020-06-21] MEDS ORDERED: METOPROLOL TART25 MG PO (01:44)
[2020-06-21] MEDS ORDERED: ZOFRAN4 MG PEG (01:44)
[2020-06-21] MEDS ORDERED: VITAMIN C500 MG/15 PEG (01:44)
[2020-06-21] MEDS ORDERED: INSULIN LI100 UNIT/1 SC (01:44)
[2020-06-21] MEDS ORDERED: MULTIVITAMINS1 EAC7 PEG (01:44)
[2020-06-21] MEDS ORDERED: PROMOD946 ML PEG (01:44)
[2020-06-21] MEDS ORDERED: LACTULOSE20 GM/30 M PO (01:44)
[2020-06-21] MEDS: SODIUM CHLORIDE 0.9% 1000ML 1,000 ML IV SCH ×4 (02:41→22:05)
[2020-06-21 04:42] LABS: BASOPHILS # (AUTO) 0.1 (0.0-0.1); BASOPHILS % 0.3 % (0.0-1.0); EOSINOPHILS # (AUTO) 0.1 (0.0-0.4); EOSINOPHILS % 0.6 % (0.0-6.0); LYMPHOCYTES # (AUTO) 1.8 (1.0-3.2); LYMPHOCYTES % 8.8 % (18.0-39.1); MEAN CORPUSCULAR HEMOGLOBIN 25.9 pg (28-32); MEAN CORPUSCULAR VOLUME 81.1 fL (81-99); MONOCYTES # (AUTO) 1.2 (0.2-0.8); MONOCYTES % 5.5 % (4.4-11.3); NEUTROPHILS # (AUTO) 17.7 (2.1-6.9); NEUTROPHILS % 84.1 % (38.7-80.0); PLATELET COUNT 500 x10e3/uL (140-360); RED BLOOD COUNT 2.12 x10e6/uL (3.6-5.1); RED CELL DISTRIBUTION WIDTH 17.1 % (11.7-14.4)
[2020-06-21 04:45] LABS: HEMATOCRIT 17.2 % (34.2-44.1); HEMOGLOBIN 5.5 g/dL (12.0-16.0)
[2020-06-21 04:59] LABS: ALANINE AMINOTRANSFERASE 205 IU/L (0-55); ALBUMIN 1.7 g/dL (3.5-5.0); ALBUMIN/GLOBULIN RATIO 0.3 (0.8-2.0); ALKALINE PHOSPHATASE 177 IU/L (40-150); ANION GAP 10.6 mmol/L (8-16); BLOOD UREA NITROGEN 40 mg/dL (7-26); BUN/CREATININE RATIO 35 (6-25); CARBON DIOXIDE 21 mmol/L (22-29); CHLORIDE 119 mmol/L (98-107); CREATININE, SERUM 1.14 mg/dL (0.57-1.11); EST GLOMERULAR FILTRATION RATE > 60 ML/MIN (60-); GLUCOSE 106 mg/dL (74-118); POTASSIUM 3.6 mmol/L (3.5-5.1); SODIUM 147 mmol/L (136-145)
[2020-06-21] MEDS ORDERED: NOREPINEPHRINE 8 MG/D5W 250 ML 250 ML ONE (06:11)
--- NOTE | 2020-06-21 06:18 | NUR ---
Call placed to Dr. Joseph re: AM Hgb 5.5 from 7.5, hypotensive 70-85/50-60's ST 110's, awaiting 2 units blood to transfuse. New order for levophed, currently at 3 mcg/min with BP 110's/50's. NS 125 ml/hr continues.
[2020-06-21] MEDS ORDERED: NOREPINEPHRINE INJ 4MG/4ML 8 MG in DEXTROSE 5% 250ML 250 ML IV PRN (07:00)
[2020-06-21] MEDS ORDERED: NOREPINEPHRINE 8 MG/D5W 250 ML 250 ML IV PRN (07:15)
[2020-06-21 07:49] LABS: ANISOCYTOSIS SLIGHT; HYPOCHROMASIA SLIGHT; PLATELET ESTIMATE MODERATELY INCREASED; PLATELET MORPHOLOGY COMMENT NORMAL; RBC MORPHOLOGY COMMENT NORMAL
[2020-06-21] MEDS ORDERED: PANTOPRAZOLE 40 MG 10ML VIAL IV STA (09:22)
[2020-06-21] MEDS ORDERED: VANCOMYCIN 1GM/NS 250 ML 250 ML IV ONE (09:30)
--- NOTE | 2020-06-21 09:42 | NUR ---
ice packs to axilla and groin. fever 104 rectal
[2020-06-21] MEDS ORDERED: ACETAMINOPHEN 325 MG SUPP PR PRN (09:45)
[2020-06-21] MEDS: ACETAMINOPHEN 325 MG/10 ML UDC NG PRN ×3 (09:48→19:46)
[2020-06-21] MEDS ORDERED: ACETAMINOPHEN 325 MG/10 ML UDC ONE (09:51)
[2020-06-21] MEDS ORDERED: VANCOMYCIN 1GM/NS 250 ML 250 ML IV SCH (11:45)
--- NOTE | 2020-06-21 11:50 | Consultation ---
DATE OF CONSULTATION: Pulmonary Critical Care Consultation REASON FOR CONSULT: Hypotension and anemia. CHIEF COMPLAINT: Hypotension and anemia. HISTORY OF PRESENT ILLNESS: Ms. Manley is a 50-year-old female known to me from [facility], came in with low hemoglobin. She is in a persistent vegetative state, unable to communicate. She has been in [facility] multiple times and [place]. She has tracheostomy, vent-dependent. She has a previous history of stroke. She was sent from [facility] because was febrile and tachycardic in the emergency room. The patient's blood pressure was 85/62 and received central line. Hemoglobin was 7.5 and hemoglobin down to 5.5 this morning. The patient has antibodies and waiting for blood transfusion. REVIEW OF SYSTEMS: Unable to elicit any, as the patient is on mechanical ventilator. PAST MEDICAL HISTORY: CVA, tracheostomy, gastrostomy, and chronic respiratory failure. FAMILY AND SOCIAL HISTORY: She does not smoke and does not drink. She lives at [facility]. PHYSICAL EXAMINATION: VITAL SIGNS: Temperature 99.1, pulse of 117, blood pressure 97/50, T-max of 100.7, tracheostomy. CHEST: Clear to auscultation bilaterally. The patient is noncommunicative, persistent vegetative state. EXTREMITIES: Contracted. No pedal edema. NEUROLOGICAL: Noncommunicative. LABORATORY DATA: Reviewed. White cell count of 21,000 and hemoglobin 5.5. Chest x-ray done, which is showing left lower lobe opacity. ASSESSMENT/PLAN: Ms. Manley is a 50-year-old female came in with septic shock and hypovolemic shock with anemia, fever, likely has new pneumonia along with possibly a urinary tract infection as well. PLAN: Vasopressors to keep the MAP more than or equal to 65. Transfuse 2 units of packed RBCs. Possibility of GI consult. Start the patient on IV Zosyn. We will also give one dose of vancomycin. The patient's creatinine was 1.48 on admission and is down to 1.14 after 3 L of fluid, calcium was 13.3, which is also reduced to 11.0. Critical care time spent 50 minutes. MD GAURAV Sanchez/NEGAR /[id number]
[2020-06-21] MEDS ORDERED: SODIUM CHLORIDE 0.9% 50ML 50 ML ONE (11:51)
[2020-06-21] MEDS ORDERED: IOPAMIDOL 370 MG/ML 200 ML INFUS..BTL INJ ONE (11:51)
[2020-06-21 12:13] LABS: CREATINE KINASE MB 2.3 ng/mL (0-4.3)
--- NOTE | 2020-06-21 12:45 | NUR ---
TELEPHONE CONSENT FROM [facility] [phone] FOR BLOOD TRANSFUSION AND PICC LINE PLACEMENT
--- NOTE | 2020-06-21 13:00 | NUR ---
OKAY TO DO PICC LINE WITH ELEVATED WBC PER DR HEREDIA
--- NOTE | 2020-06-21 14:36 | NUR ---
WOUND CARE CONSULT 50 YO FEMALE HX OF SEPSIS,ANEMIA JOSEPH 12 0N STRICT PUP STATUS AND INTERVENTIONS ALTERNATING PRESSURE SURFACE HEAD TO TOE SKIN ASSESSMENT COMPLETE PATIENT PRESENTS WITH SACRAL STAGE 3 ULCERATION MEASURES 4CM X3CM X2CM DULL PINK BASE UNDERMINING 3 O'CLOCK TO 6 O'CLOCK = 2CM RECOMMENDATIONS: NURSING TO CONTINUE TO MONITOR PATIENT AND KEEP SKIN CLEAN AND FREE FROM LOOSE STOOL OR IRRITATING MOISTURE AND CONTINUE TO FOLLOW STRICT PUP STATUS INTERVENTIONS ALTERNATING PRESSURE MATTRESS NURSING TO CONTINUE TO MAINTAIN PATIENT NUTRITION TO SUPPORT WOUND HEALING NURSING TO CLEAN SACRAL STAGE 3 ULCERATION WITH NORMAL SALINE DAILY AND PACK OPEN SPACE WITH MAXSORB AG AND COVER WITH ALLEVYN FOAM DRESSING Addendum: 06/21/20 at 1443 by John Saavedra RN Amended: Links added.
--- NOTE | 2020-06-21 14:57 | Consultation ---
DATE OF CONSULTATION: REASON FOR CONSULTATION: Pneumonia, sepsis, recommendation antibiotic, fever. HISTORY OF PRESENT ILLNESS: This is a 50-year-old female, who is known to me from before. The patient who has been in a vegetative state on the ventilator. She was from the [facility] multiple times and [place] multiple times. She had tracheostomy and she had a stroke before, the patient from a [facility]. The [facility] in with fever, chills, altered mental status, transferred here. She is currently on Zosyn. PAST MEDICAL HISTORY: CVA, tracheostomy, gastrostomy, chronic respiratory failure, multiple admissions, recurrent aspiration. PAST SURGICAL HISTORY: As above. ALLERGIES: NKA. SOCIAL HISTORY: From longterm. FAMILY HISTORY: Could not be obtained. REVIEW OF SYSTEMS: Could not be obtained. LABORATORY DATA: When she came, her white count 26.99, hemoglobin 7.5 and dropped to 5.5, her platelet is 581. Sodium 145, potassium 5.8, creatinine 1.48, came down to 1.4, calcium was 13.3, came down to 11. PHYSICAL EXAMINATION: GENERAL: She is intubated, noncommunicative. VITAL SIGNS: She had temperature 104.0, heart rate 124, respiration 20, blood pressure 94/50. HEENT: Normocephalic. NECK: Supple. CHEST: Rhonchi. HEART: S1, S2. ABDOMEN: Soft. Bowel sounds present. EXTREMITIES: No edema. SKIN: No rash. IMPRESSION: Sepsis on admission, aspiration pneumonia, shocky on admission, acute kidney injury, anemia, acute on chronic. Hypercalcemia, dehydration, agree with Zosyn. We will add vancomycin, obtain blood cultures. Obtain sputum cultures. Recheck CBC. Recheck Chem panel. Blood transfusion. Supportive care. Prognosis is poor. Further recommendations to follow. Discussed with medical team. MD LEONEL Rodrigues/NEGAR /[id number]
[2020-06-21] MEDS: PIPER-TAZ 3.375 GM 50 ML IV SCH ×2 (15:09→22:04)
--- NOTE | 2020-06-21 15:09 | Diagnostic Imaging Report ---
EXAM: CT Abdomen and Pelvis WITH intravenous contrast INDICATION: Elevated liver enzymes COMPARISON: None. TECHNIQUE: Abdomen and pelvis were scanned utilizing a multidetector helical scanner from the lung base to the pubic symphysis after administration of IV contrast. Coronal and sagittal reformations were obtained. Routine protocol was performed. Scan was performed during portal venous phase. IV CONTRAST: 100mL of Isovue 370 ORAL CONTRAST: Water RADIATION DOSE: Total DLP: 740 mGy*cm Dose modulation, iterative reconstruction, and/or weight based adjustment of the mA/kV was utilized to reduce the radiation dose to as low as reasonably achievable. FINDINGS: LOWER THORAX: Consolidative opacities involving the posterior left lower lobe and lingula, more likely atelectasis than pneumonia. HEPATOBILIARY: No focal liver lesion. No biliary ductal dilation. Unremarkable gallbladder. SPLEEN: No splenomegaly. PANCREAS: No focal masses or ductal dilatation. ADRENALS: No adrenal nodules. KIDNEYS/URETERS: No hydronephrosis or solid renal mass lesion. Punctate right lower pole 2 mm renal calculi. PELVIC ORGANS/BLADDER: Vance catheter terminates in the bladder. Fibroid uterus. PERITONEUM / RETROPERITONEUM: No free air or fluid. LYMPH NODES: No lymphadenopathy. VESSELS: Right femoral central venous catheter. GI TRACT: Increased stool burden throughout the distal colon. Rectal probe in place. No abnormal bowel thickening or bowel obstruction. Normal appendix. BONES AND SOFT TISSUES: Right proximal femur fixation hardware. IMPRESSION: No focal liver lesions. Unremarkable gallbladder. Increased distal chronic stool burden can be seen in the setting of constipation. Consolidative opacities of the posterior left lower lobe and lingula, more likely atelectasis than pneumonia. Nonobstructive right lower pole 2 mm renal calculi. Fibroid uterus. Signed by: Wale Gasca MD on 06/21/2020 3:05 PM
--- NOTE | 2020-06-21 15:19 | Diagnostic Imaging Report ---
EXAMINATION: CHEST XRAY LINE PLACEMENT INDICATION: Line placement COMPARISON: Chest radiograph 06/21/2020 FINDINGS: LINES/TUBES:Left PICC line terminates at the superior cavoatrial junction. Tracheostomy tube unchanged. EKG leads overlie the chest. LUNGS:The lungs are moderately inflated. Unchanged left lower lung airspace opacities. PLEURA:No pleural effusion or pneumothorax. MEDIASTINUM:The cardiomediastinal silhouette appears normal in size and shape. BONES/SOFT TISSUES:No acute osseous injury. ABDOMEN:No free air under the diaphragm. IMPRESSION: Left PICC line terminates at the superior cavoatrial junction. Otherwise, no significant interval change. Signed by: Wale Gasca MD on 06/21/2020 3:15 PM
--- NOTE | 2020-06-21 17:07 | NUR ---
Nutrition Intervention Note RD Recommendation(s) for Physician: Vital AF 1.2 at 60ml/hr/100ml water flush every 4 hrs per PEG Plan of Care: RD following, monitoring for tolerance and adequacy Nutrition reason for involvement: MD Consult RD Assessment Initial encounter with patient. Pt was not able to provide a nutrition Hx during the time of visit. Nutrition consult for received regarding EN recommendations. Per nurse EN won't likely start until tomorrow. Pt is NPO, has a PEG tube and will require EN greater than 90 days due to Pt not being safe for PO due to vegetative state. multiple aspirations. Pt has had ht documented as 65" during previous admissions. Ht is documented as 60" during this admit. Unable to verify at this time. Principal Problems/Diagnoses: sepsis, anemia PMH: CVA, respiratory failure, PEG tube, recurrent aspirations, dysphagia GI: soft, nontender Skin: pressure ulcer Labs: (06/21/2020) sodium 147 other labs noted Meds: (Date) norepinephrine MAR reviewed Ht:60" (65" documented during last 5 admits) Wt:125.88 (pt has lost wt since last admit in April BMI: 24.6 IBW:100lbs Malnutrition Evaluation (06/21/2020) The patient does not meet criteria for a specified degree of malnutrition at this time. Will re-evaluate at follow-up as appropriate. Nutrition Prescription (Diet Order):NPO Estimated Nutritional Needs: 1430-1716calories/day ( 25-30kcals/kg/BW) 68-103g protein/day ( 1.2-1.5g pro/kg {BW) Fluid needs per fluid status NPO Diet Education Needs Assessment: Diet education not indicated. Nutrition Care Level: Moderate Nutrition Diagnosis: Swallowing difficulty related to CVA as evidenced by dysphagia. Goal: Patient will meet 75-100% of estimated needs by follow up Progress: (Progressing) Interventions: Commercial food, Composition, Rate, Route, IVF, Prescription medications. Monitoring/Evaluation: Total energy intake, Total protein intake, Formula/Solution, IVF, Prescription medication, Weight change. Signed:Beni Leslie RD, LD, [facility]
[2020-06-21 18:18] LABS: BASOPHILS # (AUTO) 0.1 (0.0-0.1); BASOPHILS % 0.4 % (0.0-1.0); EOSINOPHILS # (AUTO) 0.1 (0.0-0.4); EOSINOPHILS % 0.2 % (0.0-6.0); HEMOGLOBIN 7.1 g/dL (12.0-16.0); LYMPHOCYTES # (AUTO) 1.8 (1.0-3.2); LYMPHOCYTES % 6.3 % (18.0-39.1); MEAN CORPUSCULAR HEMOGLOBIN 26.6 pg (28-32); MEAN CORPUSCULAR HGB CONC 32.4 g/dL (31-35); MONOCYTES # (AUTO) 1.5 (0.2-0.8); MONOCYTES % 5.2 % (4.4-11.3); NEUTROPHILS # (AUTO) 24.4 (2.1-6.9); NEUTROPHILS % 86.7 % (38.7-80.0); PLATELET COUNT 495 x10e3/uL (140-360); RED BLOOD COUNT 2.67 x10e6/uL (3.6-5.1)
[2020-06-21 18:26] LABS: HEMATOCRIT 21.9 % (34.2-44.1)
[2020-06-22] VITALS (21 sets, daily range): BP systolic 89–136; BP diastolic 40–91
[2020-06-22 04:22] LABS: BASOPHILS # (AUTO) 0.1 (0.0-0.1); BASOPHILS % 0.3 % (0.0-1.0); EOSINOPHILS # (AUTO) 0.1 (0.0-0.4); EOSINOPHILS % 0.3 % (0.0-6.0); LYMPHOCYTES # (AUTO) 1.5 (1.0-3.2); LYMPHOCYTES % 5.8 % (18.0-39.1); MEAN CORPUSCULAR HEMOGLOBIN 26.8 pg (28-32); MEAN CORPUSCULAR HGB CONC 32.7 g/dL (31-35); MEAN CORPUSCULAR VOLUME 81.9 fL (81-99); MONOCYTES % 3.9 % (4.4-11.3); NEUTROPHILS # (AUTO) 22.2 (2.1-6.9); NEUTROPHILS % 88.5 % (38.7-80.0); PLATELET COUNT 454 x10e3/uL (140-360); RED BLOOD COUNT 2.54 x10e6/uL (3.6-5.1); RED CELL DISTRIBUTION WIDTH 16.7 % (11.7-14.4)
[2020-06-22 04:25] LABS: HEMATOCRIT 20.8 % (34.2-44.1); HEMOGLOBIN 6.8 g/dL (12.0-16.0)
[2020-06-22 04:43] LABS: ANION GAP 10.8 mmol/L (8-16); BLOOD UREA NITROGEN 18 mg/dL (7-26); BUN/CREATININE RATIO 21 (6-25); CALCIUM 11.1 mg/dL (8.4-10.2); CARBON DIOXIDE 20 mmol/L (22-29); CHLORIDE 126 mmol/L (98-107); CREATININE, SERUM 0.85 mg/dL (0.57-1.11); EST GLOMERULAR FILTRATION RATE > 60 ML/MIN (60-); GLUCOSE 79 mg/dL (74-118); SODIUM 154 mmol/L (136-145)
[2020-06-22 04:48] LABS: POTASSIUM 2.8 mmol/L (3.5-5.1)
[2020-06-22] MEDS: PIPER-TAZ 3.375 GM 50 ML IV SCH ×3 (05:53→22:00)
[2020-06-22] MEDS: SODIUM CHLORIDE 0.9% 1000ML 1,000 ML IV SCH ×3 (06:16→22:15)
[2020-06-22] MEDS: PANTOPRAZOLE 40 MG 10ML VIAL IV SCH (08:56)
[2020-06-22] MEDS ORDERED: POTASSIUM CHLORIDE 20MEQ/100ML 300 ML IV ONE (09:00)
[2020-06-22] MEDS ORDERED: SODIUM CHLORIDE 0.9% 250ML 250 ML IV SCH (09:00)
[2020-06-22] MEDS ORDERED: VANCOMYCIN 1GM/NS 250 ML 250 ML IV SCH (09:00)
--- NOTE | 2020-06-22 14:28 | Progress Note ---
DATE: SUBJECTIVE: The patient is chronically on mechanical ventilator in persistent vegetative state, chronically anemic now. Anemia is worse despite blood transfusion. She is not communicate. PHYSICAL EXAMINATION: VITAL SIGNS: T-max of 101.2, pulse of 103, and blood pressure 136/57. She is persistently spiking temperatures. CHEST: Clear to auscultation bilaterally. Has a tracheostomy. She is vent-dependent. EXTREMITIES: No pedal edema. NEUROLOGICAL: She does not communicate. LABORATORY DATA: White cell count is 25,000, hemoglobin 6.8, and platelets 454. Chemistry; sodium 154, potassium 2.8, which has been replaced. ASSESSMENT/PLAN: Ms. Manley is a 50-year-old female with persistent vegetative state, vent-dependent, has trach and PEG. The patient is noncommunicative at baseline, came in with high-grade fever and anemia. Current problems: 1. Fever and septic shock. Source is not very clear. Continue the patient on antibiotic. Follow ID recommendations. 2. Anemia, could be gastrointestinal bleed. Blood transfusion has been ordered. Defer the GI evaluation to the primary team. Replace potassium. Follow blood cultures, so far gram- negative bacillus and urine culture. Critical care time spent 40 minutes. MD GAURAV Sanchez/MOD[facility] /[id number]
--- NOTE | 2020-06-22 18:54 | Progress Note ---
DATE: SUBJECTIVE: Bebo Manley remains on the ventilator, noncommunicative. She received 2 units of blood, but still anemic. She is going to get 2 more. She is still running fever. Her sputum showing gram-negative rods. Her white count is 25, down from 28, hemoglobin 6.8. REVIEW OF SYSTEMS: Could not be obtained. MEDICATION LIST: She is currently on Zosyn and vancomycin. PHYSICAL EXAMINATION: GENERAL: Intubated, noncommunicative. VITAL SIGNS: Stable. T-max 101.2. HEENT: She is not icteric. NECK: Supple. CHEST: Crackles. HEART: S1 and S2. ABDOMEN: Soft. IMPRESSION: Respiratory failure, fever, pneumonia, aspiration, anemia [id number], concerned about gastrointestinal bleed. Prognosis is extremely poor really. We will discontinue vancomycin. Continue with Zosyn. We will add tobramycin inhaler. Continue supportive care. MD LEONEL Rodrigues/NEGAR /[id number]
[2020-06-22 20:19] LABS: HEMOGLOBIN 9.3 g/dL (12.0-16.0)
[2020-06-23] VITALS (23 sets, daily range): BP systolic 86–134; BP diastolic 51–83
[2020-06-23] MEDS: ACETAMINOPHEN 325 MG/10 ML UDC NG PRN (00:07)
[2020-06-23] MEDS: PIPER-TAZ 3.375 GM 50 ML IV SCH ×3 (05:50→22:25)
[2020-06-23] MEDS: SODIUM CHLORIDE 0.9% 1000ML 1,000 ML IV SCH ×2 (06:46→17:45)
[2020-06-23] MEDS: PANTOPRAZOLE 40 MG 10ML VIAL IV SCH (10:07)
--- NOTE | 2020-06-23 11:03 | Progress Note ---
DATE: SUBJECTIVE: The patient is breathing well. No distress. The patient is on mechanical ventilator. She has persistent vegetative state and has unable to communicate. She has contacted vent dependent bed-bound, has tracheostomy and PEG tube and long term resident. PHYSICAL EXAMINATION: VITAL SIGNS: Temperature 99.9, pulse of 117, blood pressure 108/60, blood pressure has been stable. She has been fever. She is still having temperature of 102. HEENT: Head atraumatic, normocephalic. She has a tracheostomy. CHEST: Clear to auscultation. Few crackles on the bases. HEART: S1, S2 audible. ABDOMEN: Soft, contracted. EXTREMITIES: No pedal edema. NEUROLOGIC: The patient is awake, but noncommunicative. LAB[place]ORY [place]: [place] [address], hemoglobin is now stable at 9.3. The patient received 4 units of packed RBCs. Chemistry; sodium is 154, potassium 2.8. ASSESSMENT: 1. Ms. Manley is a 50-year-old female, bed-bound, vent dependent, came in with septic shock. The patient is still on Levophed. Also had acute blood loss anemia, which has improved with transfusion. 2. Septic shock. 3. Acute blood loss anemia. 4. Persistent vegetative state. 5. Tracheostomy status. 6. Gastrostomy tube status. PLAN: Continue the patient on antibiotics per ID recommendations. The patient is on 50% FiO2. She goes on the vent at nighttime and during the daytime, she tolerates trach collar, which can be done at [facility]. Once the patient is off Levophed, she can be transferred back to [facility]. The patient has a PICC line and IV antibiotics are going. Ventilator settings reviewed. Critical care time spent 40 minutes. MD GAURAV Sanchez/NEGAR /[id number]
--- NOTE | 2020-06-23 16:13 | NUR ---
FAXED CLINICALS TO FACILITY TO REVIEW FOR RETURN TOMORROW
[2020-06-23] MEDS ORDERED: POTASSIUM CHLORIDE 20MEQ/15ML UDC NG ONE (16:46)
--- NOTE | 2020-06-23 21:07 | Progress Note ---
DATE: SUBJECTIVE: Ms. Manley remains in intensive care unit on mechanical ventilator, vegetative state, PEG tube, bedbound, tracheostomy. OBJECTIVE: VITAL SIGNS: Stable, afebrile. HEENT: Not icteric. NECK: Supple. CHEST: Few rhonchi bilateral. HEART: S1, S2. ABDOMEN: Soft. Bowel sounds present. EXTREMITIES: No edema. SKIN: No rash. IMPRESSION: Aspiration pneumonia, sepsis on admission, septic shock, anemia acute GI loss, chronic kidney disease, vegetative state, status post tracheostomy and gastrostomy. Finished 7 days of antibiotic. Blood product PRBC to be given as needed. Continue supportive care. Prognosis is extremely poor. We will follow. Hyacinth Lopez MD ZS/MODL /[id number]
[2020-06-24] VITALS (26 sets, daily range): BP systolic 108–145; BP diastolic 58–78
[2020-06-24] MEDS: SODIUM CHLORIDE 0.9% 1000ML 1,000 ML IV SCH ×2 (00:05→08:12)
[2020-06-24 03:23] LABS: ANION GAP 8.8 mmol/L (8-16); BLOOD UREA NITROGEN 16 mg/dL (7-26); BUN/CREATININE RATIO 21 (6-25); CALCIUM 9.9 mg/dL (8.4-10.2); CARBON DIOXIDE 19 mmol/L (22-29); CHLORIDE 131 mmol/L (98-107); CREATININE, SERUM 0.76 mg/dL (0.57-1.11); EST GLOMERULAR FILTRATION RATE > 60 ML/MIN (60-); GLUCOSE 109 mg/dL (74-118); POTASSIUM 3.8 mmol/L (3.5-5.1); SODIUM 155 mmol/L (136-145)
[2020-06-24] MEDS: PIPER-TAZ 3.375 GM 50 ML IV SCH (05:33)
[2020-06-24] MEDS: PANTOPRAZOLE 40 MG 10ML VIAL IV SCH (08:12)
[2020-06-24 10:04] LABS: BASOPHILS # (AUTO) 0.1 (0.0-0.1); BASOPHILS % 0.3 % (0.0-1.0); EOSINOPHILS # (AUTO) 0.2 (0.0-0.4); EOSINOPHILS % 1.3 % (0.0-6.0); HEMOGLOBIN 7.3 g/dL (12.0-16.0); LYMPHOCYTES # (AUTO) 1.9 (1.0-3.2); LYMPHOCYTES % 10.7 % (18.0-39.1); MEAN CORPUSCULAR HEMOGLOBIN 27.3 pg (28-32); MEAN CORPUSCULAR HGB CONC 32.2 g/dL (31-35); MONOCYTES # (AUTO) 0.6 (0.2-0.8); MONOCYTES % 3.7 % (4.4-11.3); NEUTROPHILS # (AUTO) 14.3 (2.1-6.9); NEUTROPHILS % 83.2 % (38.7-80.0); PLATELET COUNT 387 x10e3/uL (140-360); RED BLOOD COUNT 2.67 x10e6/uL (3.6-5.1); RED CELL DISTRIBUTION WIDTH 17.7 % (11.7-14.4)
[2020-06-24 10:13] LABS: HEMATOCRIT 22.7 % (34.2-44.1)
--- NOTE | 2020-06-24 10:35 | NUR ---
[facility]AY FACILITY DISCHARGE INFORMATION PATIENT HAS BEEN ACCEPTED TO: NAME:[facility] ADDRESS:[id number] [facility] ACCEPTING PLAN COORDINATOR: NORMA SULLIVAN MD:CHAKA ROOM:403 A NURSE CALL REPORT TO: [phone] IMM SIGNED AND OBTAINED (if applicable): NA THE FOLLOWING DOCUMENTS MUST ACCOMPANY PATIENT FOR TRANSFER: COPIED CHART:PACKET AT NURSES DESK
--- NOTE | 2020-06-24 11:09 | Progress Note ---
DATE: Pulmonary Critical Care Followup SUBJECTIVE: The patient is vent-dependent and persistent vegetative state. The patient has a tracheostomy on mechanical ventilator. Also has PEG tube, contracted, history of stroke, came in with sepsis. PHYSICAL EXAMINATION: VITAL SIGNS: T-max of 101.6, pulse of 96, blood pressure 125/65, and respiratory rate is 18. The patient is on mechanical ventilator, 50% FiO2, 100% O2 saturation. Tracheostomy. CHEST: Clear to auscultation bilaterally. No wheezing. HEART: S1 and S2 audible. ABDOMEN: Soft. The patient has PEG tube. EXTREMITIES: No pedal edema. NEUROLOGICAL: She is not responsive and she does not follow any commands. LABORATORY DATA: No new labs. Chemistry today; sodium is 155 and potassium 3.8. Urine cultures growing Pseudomonas and Proteus, which is ESBL with Enterococcus. Sputum cultures growing Proteus mirabilis and Pseudomonas. ASSESSMENT/PLAN: Ms. Manley is a 50-year-old female. She is in persistent vegetative state. Current problems: 1. Urinary tract infection. 2. Multilobar pneumonia. 3. Severe anemia. 4. Bedbound status. 5. Persistent vegetative state. 6. Chronic tracheostomy. 7. Chronic gastrostomy. PLAN: 1. I will change the antibiotic to IV meropenem along with IV vancomycin. Continue the patient on vent support. She is ventilator-dependent. 2. Levophed has been weaned off. 3. Increase the free water flushes. Recheck labs. I will still hold off on the DVT prophylaxis because of anemia. Since the patient is on tube feed, does not need GI prophylaxis. Critical care time spent 40 minutes. MD GAURAV Sanchez/NEGAR /[id number]
--- NOTE | 2020-06-24 11:31 | Diagnostic Imaging Report ---
Chest, 1 view, 06/24/2020. History: Sepsis. Comparison: 06/21/2020. Findings: The cardiomediastinal silhouette and pulmonary vasculature are within normal limits for a portable exam. Dense left basilar opacity is present obscuring the left heart border and left hemidiaphragm, increased compared to prior exam. Right lung is relatively clear. Tracheostomy tube and left upper extremity PICC are unchanged in position. There are no acute osseous or soft tissue abnormalities. Impression: Increased left basilar opacity consistent with worsening pneumonia/effusion. Signed by: James Vo on 06/24/2020 11:27 AM
[2020-06-24] MEDS: VANCOMYCIN 1GM/NS 250 ML 250 ML IV SCH ×2 (11:45→23:18)
[2020-06-24] MEDS: MEROPENEM 1GM 100 ML IV SCH ×2 (14:07→22:01)
--- NOTE | 2020-06-24 15:16 | NUR ---
INFECTIOUS DISEASE PROGRESS NOTE DR. MARITO JENNINGS REASON FOR CONSULTATION: Pneumonia, sepsis, recommendation antibiotic, fever. HISTORY OF PRESENT ILLNESS: This is a 50-year-old female, who is known to me from before. The patient who has been in a vegetative state on the ventilator. She was from the [facility] times and [place] multiple times. She had tracheostomy and she had a stroke before, the patient from a intermediate. The [facility] comes in with fever, chills, altered mental status, transferred here. She is currently on Zosyn. PAST MEDICAL HISTORY: CVA, tracheostomy, gastrostomy, chronic respiratory failure, multiple admissions, recurrent aspiration. ALLERGIES: NKA. REVIEW OF SYSTEMS: Could not be obtained. LABORATORY DATA: reviewed PHYSICAL EXAMINATION: GENERAL: trach, vegetative state VITAL SIGNS: per chart HEENT: Normocephalic. NECK: Supple. trach CHEST: Rhonchi. HEART: S1, S2. ABDOMEN: Soft. Bowel sounds present. EXTREMITIES: No edema. SKIN: No rash. IMPRESSION: Sepsis on admission aspiration pneumonia acute kidney injury anemia, acute on chronic. Hypercalcemia dehydration PLAN on Merrem and Vanc per pulmo She does not have MRSA, it was negative She completed 7 days of antibiotic overall prognosis is extremely poor Malini Leigh MSN, ADMINISTRATIVE SUPPORT MANAGER, AGACNP-BC discussed with Dr. Marito Jennings
--- NOTE | 2020-06-24 16:04 | NUR ---
Nutrition Intervention Note RD Recommendation(s) for Physician: - Continue Vital AF 1.2 at 60 mL/hr (provides 1728 kcal, 108 g protein, and 1168 mL water) - Water/fluid management per MD Plan of Care: RD following, monitoring for tolerance and adequacy Nutrition reason for involvement: follow up (06/24/20) Follow up. Chart reviewed. Pt remains in the ICU on mechanical ventilation. Pt is tolerating TF @ 60 mL/hr. Water flushed was increased due to elevated Na levels. Will continue to monitor. (06/21/20) RD Assessment Initial encounter with patient. Pt was not able to provide a nutrition Hx during the time of visit. Nutrition consult for received regarding EN recommendations. Per nurse EN won't likely start until tomorrow. Pt is NPO, has a PEG tube and will require EN greater than 90 days due to Pt not being safe for PO due to vegetative state. multiple aspirations. Pt has had ht documented as 65" during previous admissions. Ht is documented as 60" during this admit. Unable to verify at this time. Principal Problems/Diagnoses: sepsis, anemia PMH: CVA, respiratory failure, PEG tube, recurrent aspirations, dysphagia GI: flat/soft/non-tender abdomen, last recorded BM 06/24 Skin: sacral stage 3 pressure ulcer (per wound care note 06/21) Labs: (06/24) Na 155, K 3.8, BUN 16, Cr 0.76, Glu 109, Ca 9.9 (06/21/2020) sodium 147 other labs noted Meds: antibiotics, protonix, norepinephrine Ht:60" (65" documented during last 5 admits) Wt:133.56 lbs (06/23) 125.88 (06/21) BMI: 24.6 using admit wt 125.88 lbs IBW:100lbs Malnutrition Evaluation (06/21/2020) The patient does not meet criteria for a specified degree of malnutrition at this time. Will re-evaluate at follow-up as appropriate. Nutrition Prescription (Diet Order) Vital AF 1.2 @ 60 mL/hr / 150 mL water flush q4hrs Estimated Nutritional Needs: 2873-4486 calories/day (25-30kcals/kg) Weight used: 125.88 lbs 68-114 g protein/day (1.2-2g pro/kg) Weight used: 125.88 lbs Diet Adequacy: Meeting calorie needs, Meeting protein needs Tolerance: Tolerating TF Diet Education Needs Assessment: Diet education not indicated. Nutrition Care Level: Moderate Nutrition Diagnosis: Swallowing difficulty related to CVA as evidenced by dysphagia. Goal: Patient will meet 75-100% of estimated needs by follow up Progress: goal met Interventions: -Composition, Rate, Route Monitoring/Evaluation: -Total energy intake, Total protein intake, Formula/Solution, Weight change Signed: Lanny Schumacher RD, LD
--- NOTE | 2020-06-24 18:32 | NUR ---
NOTIFIED DR. HEREDIA OF ELEVATED TEMPERATURES THIS MORNING. AM LABS AND CHEST XRAY OBTAINED. NEW ORDERS OBTAINED. PLAN TO KEEP PATIENT TODAY
--- NOTE | 2020-06-24 23:00 | NUR ---
Rectal tube inserted and lactulose given at 2300 per MD order.
[2020-06-24] MEDS: LACTULOSE SYRUP 20 GM/30 ML UDC PEG SCH (23:18)
[2020-06-25] VITALS (25 sets, daily range): BP systolic 121–153; BP diastolic 59–88
[2020-06-25 03:13] LABS: BASOPHILS # (AUTO) 0.1 (0.0-0.1); BASOPHILS % 0.4 % (0.0-1.0); EOSINOPHILS # (AUTO) 0.3 (0.0-0.4); EOSINOPHILS % 1.8 % (0.0-6.0); HEMOGLOBIN 7.5 g/dL (12.0-16.0); LYMPHOCYTES % 13.5 % (18.0-39.1); MEAN CORPUSCULAR HEMOGLOBIN 27.3 pg (28-32); MEAN CORPUSCULAR HGB CONC 32.9 g/dL (31-35); MEAN CORPUSCULAR VOLUME 82.9 fL (81-99); MONOCYTES # (AUTO) 0.8 (0.2-0.8); MONOCYTES % 5.3 % (4.4-11.3); NEUTROPHILS # (AUTO) 11.6 (2.1-6.9); NEUTROPHILS % 78.4 % (38.7-80.0); PLATELET COUNT 467 x10e3/uL (140-360); RED BLOOD COUNT 2.75 x10e6/uL (3.6-5.1); RED CELL DISTRIBUTION WIDTH 17.7 % (11.7-14.4)
[2020-06-25 03:15] LABS: HEMATOCRIT 22.8 % (34.2-44.1)
[2020-06-25 03:29] LABS: ANION GAP 8.3 mmol/L (8-16); BLOOD UREA NITROGEN 14 mg/dL (7-26); BUN/CREATININE RATIO 20 (6-25); CALCIUM 9.7 mg/dL (8.4-10.2); CARBON DIOXIDE 21 mmol/L (22-29); CHLORIDE 126 mmol/L (98-107); CREATININE, SERUM 0.69 mg/dL (0.57-1.11); EST GLOMERULAR FILTRATION RATE > 60 ML/MIN (60-); GLUCOSE 93 mg/dL (74-118); POTASSIUM 3.3 mmol/L (3.5-5.1); SODIUM 152 mmol/L (136-145)
[2020-06-25] MEDS: MEROPENEM 1GM 100 ML IV SCH ×3 (05:45→22:04)
[2020-06-25] MEDS ORDERED: POTASSIUM CHLORIDE 20MEQ/15ML UDC PEG ONE (06:00)
[2020-06-25] MEDS: LACTULOSE SYRUP 20 GM/30 ML UDC PEG SCH ×2 (08:12→16:50)
[2020-06-25] MEDS: PANTOPRAZOLE 40 MG 10ML VIAL IV SCH (08:12)
[2020-06-25] MEDS: VANCOMYCIN 1GM/NS 250 ML 250 ML IV SCH (11:01)
[2020-06-25] MEDS ORDERED: POTASSIUM CHLORIDE 10MEQ EA PO NR (13:15)
--- NOTE | 2020-06-25 13:45 | NUR ---
INFRCTIOUSE DISEASES PROGRESS NOTE LABORATORY DATA: reviewed PHYSICAL EXAMINATION: GENERAL: trach, vegetative state VITAL SIGNS: per chart HEENT: Normocephalic. NECK: Supple. trach CHEST: Rhonchi. HEART: S1, S2. ABDOMEN: Soft. Bowel sounds present. EXTREMITIES: No edema. SKIN: No rash. IMPRESSION: Sepsis on admission aspiration pneumonia acute kidney injury anemia, acute on chronic. Hypercalcemia dehydration
--- NOTE | 2020-06-25 14:11 | Progress Note ---
DATE: Internal Medicine Progress Note SUBJECTIVE: The patient is chronically on the ventilator. PHYSICAL EXAMINATION: VITAL SIGNS: Blood pressure 137/74, temperature is 100.5 degrees Fahrenheit, heart rate is 99 per minute, respiratory rate is 21 per minute, and O2 saturation 99%. HEART: Showed regular rhythm. Normal S1 and S2 sound. LUNGS: Show decreased breath sounds bilaterally. She has tracheostomy and PEG tube. ABDOMEN: Soft. EXTREMITIES: Show contractures in upper and lower extremities. LABORATORY STUDIES: On the CBC; white blood count 14.78, hemoglobin 7.5, hematocrit 22.8, and platelet count 467,000. On the BMP; sodium 152, potassium 3.3, chloride 126, carbon dioxide 21, BUN 14, creatinine 0.69, glucose 93, calcium 9.7, and magnesium 1.8. COVID test is negative. Chest x-ray showed increased left basilar opacity consistent with worsening pneumonia or effusion. Blood culture negative. Sputum culture showed Proteus mirabilis, ESBL, and Pseudomonas aeruginosa. Urine culture shows Pseudomonas aeruginosa, Proteus mirabilis, ESBL, and Enterococcus faecalis. FINAL IMPRESSION: 1. Chronic respiratory failure. 2. Bilateral pneumonia secondary to gram-negative bacteria. 3. Urinary tract infection. 4. Severe acute anemia. 5. Status post cerebrovascular accident. 6. Vegetative state. PLAN OF TREATMENT: Continue ventilator support. Of course, continue meropenem 1 g IV q.8 hours. Continue Levophed as needed for hypotension, vancomycin 1 g IV twice a day, Tylenol 650 mg q.6 hours as needed for pain or fever, lactulose 20 g twice a day, and Protonix 40 mg IV daily. Potassium has been replaced because her potassium was low. We are going to continue with current medication regimen, as I said. Time spent around 50 minutes. MD JAMES Buck/NEGAR /[id number]
[2020-06-25 14:28] LABS: ANION GAP 9.6 mmol/L (8-16); BLOOD UREA NITROGEN 12 mg/dL (7-26); BUN/CREATININE RATIO 18 (6-25); CALCIUM 9.6 mg/dL (8.4-10.2); CARBON DIOXIDE 21 mmol/L (22-29); CHLORIDE 124 mmol/L (98-107); CREATININE, SERUM 0.68 mg/dL (0.57-1.11); EST GLOMERULAR FILTRATION RATE > 60 ML/MIN (60-); GLUCOSE 100 mg/dL (74-118); POTASSIUM 3.6 mmol/L (3.5-5.1); SODIUM 151 mmol/L (136-145)
--- NOTE | 2020-06-25 17:17 | Progress Note ---
DATE: SUBJECTIVE: Ms. Manley continued to be in intensive care unit, intubated, noncommunicative. She has a temperature of 100.5. She has been running fever since admission. While on antibiotic, she is currently on meropenem and vancomycin. Her chest x-ray showed left basilar opacity. PHYSICAL EXAMINATION: GENERAL: She is noncommunicative. VITAL SIGNS: Stable, afebrile. HEENT: She is not icteric. NECK: Supple. CHEST: Crackles. HEART: S1 and S2. ABDOMEN: Soft. IMPRESSION: Sepsis, pneumonia, not responding to meropenem and vancomycin. Her culture showing Pseudomonas, extended-spectrum beta-lactamase . I am going to discontinue vancomycin. Aggressive respiratory care and suctioning, albuterol treatment and hand-held nebulizer. MD LEONEL Rodrigues/MODEdwin /[id number]
[2020-06-26] VITALS (14 sets, daily range): BP systolic 129–155; BP diastolic 68–78
[2020-06-26 04:38] LABS: BASOPHILS # (AUTO) 0.1 (0.0-0.1); BASOPHILS % 0.3 % (0.0-1.0); EOSINOPHILS # (AUTO) 0.3 (0.0-0.4); EOSINOPHILS % 2.3 % (0.0-6.0); HEMATOCRIT 23.1 % (34.2-44.1); HEMOGLOBIN 7.5 g/dL (12.0-16.0); LYMPHOCYTES # (AUTO) 2.1 (1.0-3.2); LYMPHOCYTES % 14.5 % (18.0-39.1); MEAN CORPUSCULAR HEMOGLOBIN 27.5 pg (28-32); MEAN CORPUSCULAR HGB CONC 32.5 g/dL (31-35); MEAN CORPUSCULAR VOLUME 84.6 fL (81-99); MONOCYTES # (AUTO) 0.7 (0.2-0.8); MONOCYTES % 4.7 % (4.4-11.3); NEUTROPHILS # (AUTO) 11.1 (2.1-6.9); NEUTROPHILS % 77.3 % (38.7-80.0); PLATELET COUNT 496 x10e3/uL (140-360); RED BLOOD COUNT 2.73 x10e6/uL (3.6-5.1); RED CELL DISTRIBUTION WIDTH 18.3 % (11.7-14.4)
[2020-06-26 04:48] LABS: ANION GAP 7.4 mmol/L (8-16); BLOOD UREA NITROGEN 12 mg/dL (7-26); BUN/CREATININE RATIO 19 (6-25); CALCIUM 9.4 mg/dL (8.4-10.2); CARBON DIOXIDE 24 mmol/L (22-29); CHLORIDE 119 mmol/L (98-107); CREATININE, SERUM 0.62 mg/dL (0.57-1.11); EST GLOMERULAR FILTRATION RATE > 60 ML/MIN (60-); GLUCOSE 101 mg/dL (74-118); POTASSIUM 3.4 mmol/L (3.5-5.1); SODIUM 147 mmol/L (136-145)
[2020-06-26 05:14] LABS: MAGNESIUM 1.7 MG/DL (1.3-2.1); PHOSPHORUS 2.4 MG/DL (2.3-4.7)
[2020-06-26] MEDS: MEROPENEM 1GM 100 ML IV SCH (05:45)
[2020-06-26] MEDS: PANTOPRAZOLE 40 MG 10ML VIAL IV SCH (08:24)
[2020-06-26] MEDS: LACTULOSE SYRUP 20 GM/30 ML UDC PEG SCH (08:24)
[2020-06-26] MEDS ORDERED: POTASSIUM CHLORIDE 20MEQ/15ML UDC NG ONE (11:30)
--- NOTE | 2020-06-26 13:05 | NUR ---
DR. BUENO CALLED AND INFORMED OF POTASSIUM LEVEL AND IF OK TO DISCHARGE BACK TO [facility]. MD GAVE ORDERS TO TRANSFER BACK TO [facility] AND REPLACE POTASSIUM PRIOR TO TRANSFER. REPORT GIVEN TO RADHA AT [facility]. PATIENT PICKED UP BY [facility] AT 1300.
[2020-06-26] MEDS ORDERED: NON-FORMULARY MEDICATION (Ondansetron Hcl* (Zofran*) 4 MG) PEG PRN (13:45)
[2020-06-26] MEDS ORDERED: ACETAMINOPHEN 325 MG TAB GT PRN (13:45)
[2020-06-26] MEDS ORDERED: LISINOPRIL 2.5 MG TAB GT PRN (13:45)
[2020-06-26] MEDS ORDERED: LACTULOSE SYRUP 20 GM/30 ML UDC PO PRN (13:45)
[2020-06-26] MEDS ORDERED: HYDROCODONE/APAP 10MG-325MG TAB PO PRN (13:45)
--- NOTE | 2020-06-26 14:50 | Progress Note ---
DATE: Internal Medicine Progress Note SUBJECTIVE: The patient in [facility] today. PHYSICAL EXAMINATION: VITAL SIGNS: Blood pressure 142/77, temperature 39.6, heart rate 106 per minute, respiratory rate 24 per minute, O2 saturation 98%. She is on chronically mechanical ventilator. HEART: Showed regular rate and rhythm. Normal S1, S2 sound. LUNGS: Show decreased breath sounds bilaterally. ABDOMEN: Soft. LABORATORY DATA: On the blood work, a white blood cell count 14.42, hemoglobin 7.5, hematocrit 23.1, and platelet count 486,000 and on the BMP, sodium 147, potassium 3.4, chloride 118, CO2 24, BUN 12, creatinine 0.62, glucose 101, calcium 9.4, phosphorus 2.4, and magnesium 1.7. FINAL IMPRESSION: 1. Chronic respiratory failure. 2. Urinary tract infection. 3. Bilateral pneumonia with gram-negative bacteria. 4. Severe acute anemia, which is resolving, more stable. 5. History of cerebrovascular accident. 6. Hypokalemia. PLAN OF TREATMENT: We are going to resume the [facility]. The patient will continue with Tylenol 650 mg q.4 hours as needed for pain or fever, aspirin 81 mg daily, Lipitor 40 mg daily, Dulcolax 10 mg daily as needed for constipation, [place] 10/325 q.6 hours as needed for severe pain. Continue monitoring blood sugar q.6 hours. Continue with Atrovent q.6 hours, lactulose 30 mL every 24 hours as needed for constipation, lisinopril 2.5 mg twice a day, magnesium hydroxide 30 mL daily, metoprolol 25 mg daily, multivitamin one tablet daily. Continue ferrous sulfate 7.5 mL daily, which is equal to 330 mg daily. Continue Zofran 4 mg by the PEG tube q.4 hours as needed for nausea and vomiting. Continue mL daily via PEG tube. Continue vitamin C 500 mg via PEG tube twice a day. but the patient is going as I said going [facility], [facility]. Jovanny Ames MD LAS/MODL /[id number]
[2020-06-26] MEDS ORDERED: IPRATROPIUM BROMIDE 0.02% 2.5 ML NEB NEB SCH (18:00)
[2020-06-26] MEDS ORDERED: ATORVASTATIN 20 MG TAB GT SCH (21:00)
[2020-06-27] MEDS ORDERED: METOPROLOL TARTRATE 25 MG TAB PO SCH (09:00)
[2020-06-27] MEDS ORDERED: ASPIRIN 81 MG CHEW TAB GT SCH (09:00)
[2020-06-27] MEDS ORDERED: BISACODYL 5 MG TAB EC PO SCH (09:00)
[2020-06-27] MEDS ORDERED: NON-FORMULARY MEDICATION (Ferrous Sulfate 7.5 ML) PEG SCH (09:00)
[2020-06-27] MEDS ORDERED: MULTIVITAMINS/MINERALS TAB PEG SCH (09:00)
[2020-06-27] MEDS ORDERED: PROTEIN SUPPLEMENT PEG SCH (09:00)
[2020-06-27] MEDS ORDERED: MAGNESIUM HYDROXIDE 30 ML UDC GT SCH (09:00)
== END 2020-06-26 13:05 | DRG 870 ==
LOC: ER 23:15 → ERHOLD 06-21 00:04 → ICU 06-21 01:09
PROC: 02HV33Z Insertion of Infusion Device into Superior Vena Cava, Percutaneous Approach (ICD-10-PCS; principal; 2020-06-21)
PROC: 30243N1 Transfusion of Nonautologous Red Blood Cells into Central Vein, Percutaneous Approach (ICD-10-PCS; principal; 2020-06-21)
PROC: 5A1955Z Respiratory Ventilation, Greater than 96 Consecutive Hours (ICD-10-PCS; principal; 2020-06-21)
DX: A41.9 Sepsis, unspecified organism (principal); R65.21 Severe sepsis with septic shock; R57.1 Hypovolemic shock; J15.9 Unspecified bacterial pneumonia; J69.0 Pneumonitis due to inhalation of food and vomit; N17.9 Acute kidney failure, unspecified; N39.0 Urinary tract infection, site not specified; J96.10 Chronic respiratory failure, unspecified whether with hypoxia or hypercapnia; D62 Acute posthemorrhagic anemia; Z86.73 Personal history of transient ischemic attack (TIA), and cerebral infarction without residual deficits; E87.6 Hypokalemia; K59.00 Constipation, unspecified; Z93.1 Gastrostomy status; Z11.59 Encounter for screening for other viral diseases; B96.5 Pseudomonas (aeruginosa) (mallei) (pseudomallei) as the cause of diseases classified elsewhere; Z74.01 Bed confinement status; Z93.0 Tracheostomy status; E83.52 Hypercalcemia; E86.0 Dehydration
CPT/HCPCS: 36415; 36569; 71045; 74177; 80048; 80053; 80202; 81001; 82550; 82553; 82948; 83605; 83735; 84100; 84132; 84484; 85014; 85018; 85025; 86850; 86870; 86880; 86900; 86905; 86920; 86922; 87040; 87070; 87086; 87186; 87205; 93005; 94002; 94003; 99001; 99251; 99284; J2543; J3370; J3480; J7030; P9016; Q9967

== ENCOUNTER 2020-08-31 19:05 | Inpatient (IN) | payer OTHER ==
[~2020-08-31] VITALS: Ht 152.4 cm; Wt 64.0 kg
[~2020-08-31 19:05] MED LIST changes: +FERROUS SU220 MG/51 PEG; -HUMALOG100 UNIT/3; +HUMALOG100 UNIT/3 SC; +INSULIN LI100 UNIT/1 SC; +IPRATROPIU0.2 MG/1 M NEB; +LACTULOSE20 GM/30 M PO; +METOPROLOL TART25 MG PO; +MULTIVITAMINS1 EAC7 PEG; +NORCO 10-325 T1 EACH PO; +PROMOD946 ML PEG; +VITAMIN C500 MG/15 PEG; +ZOFRAN4 MG PEG
[2020-08-31] MEDS ORDERED: ACETAMINOPHEN 1000 MG/100 ML 100 ML IV ONE (19:54)
[2020-08-31] MEDS ORDERED: LORAZEPAM INJ 2 MG/ML VIAL ONE (19:57)
[2020-08-31 19:59] LABS: BASOPHILS # (AUTO) 0.1 (0.0-0.1); BASOPHILS % 0.6 % (0.0-1.0); EOSINOPHILS % 4.5 % (0.0-6.0); HEMATOCRIT 29.5 % (34.2-44.1); HEMOGLOBIN 9.7 g/dL (12.0-16.0); LYMPHOCYTES # (AUTO) 4.5 (1.0-3.2); LYMPHOCYTES % 20.9 % (18.0-39.1); MEAN CORPUSCULAR HEMOGLOBIN 26.6 pg (28-32); MEAN CORPUSCULAR HGB CONC 32.9 g/dL (31-35); MONOCYTES # (AUTO) 0.9 (0.2-0.8); MONOCYTES % 4.3 % (4.4-11.3); NEUTROPHILS # (AUTO) 14.8 (2.1-6.9); NEUTROPHILS % 69.1 % (38.7-80.0); PLATELET COUNT 828 x10e3/uL (140-360); RED BLOOD COUNT 3.64 x10e6/uL (3.6-5.1); RED CELL DISTRIBUTION WIDTH 16.5 % (11.7-14.4)
[2020-08-31] MEDS ORDERED: LACTATED RINGER'S 1,000 ML INJ ONE ×2 (20:00→21:30)
[2020-08-31] MEDS ORDERED: LORAZEPAM INJ 2 MG/ML VIAL IV ONE ×2 (20:00)
[2020-08-31] MEDS ORDERED: PIPERACILLIN/TAZO 4.5 GM 100 ML IV STA (20:12)
[2020-08-31 20:38] LABS: ALANINE AMINOTRANSFERASE 27 IU/L (0-55); ALBUMIN 2.8 g/dL (3.5-5.0); ALBUMIN/GLOBULIN RATIO 0.4 (0.8-2.0); ALKALINE PHOSPHATASE 152 IU/L (40-150); BLOOD UREA NITROGEN 12 mg/dL (7-26); BUN/CREATININE RATIO 18 (6-25); CARBON DIOXIDE 27 mmol/L (22-29); CHLORIDE 102 mmol/L (98-107); CREATININE, SERUM 0.67 mg/dL (0.57-1.11); EST GLOMERULAR FILTRATION RATE > 60 ML/MIN (60-); GLUCOSE 107 mg/dL (74-118); SODIUM 140 mmol/L (136-145)
[2020-08-31 21:15] LABS: CLARITY,URINE SL CLOUDY (CLEAR); COLOR,URINE YELLOW (YELLOW); LEUKOCYTE ESTERASE ,URINE MODERATE (NEGATIVE)
[2020-08-31 21:16] LABS: BACTERIA,URINE MANY /HPF; KETONES,URINE NEGATIVE (NEGATIVE); NITRITE,URINE NEGATIVE (NEGATIVE); PROTEIN,URINE DIPSTICK 1+ (NEGATIVE); RBC,URINE 0-5 /HPF (0-5); URINE UROBILINOGEN 0.2 mg/dL (0.2 - 1)
[2020-08-31 23:11] LABS: ABG HCO3 26 mmol/L (22-26); ABG PCO2 47 mmHg (35-45); ABG PH 7.34 (7.35-7.45); ABG PO2 53 mmHg (80-105); ABG TCO2 27
[2020-09-01] MEDS: ACETAMINOPHEN 650 MG SUPP PR PRN ×2 (01:57→07:30)
[2020-09-01] MEDS ORDERED: VANCOMYCIN 1GM/NS 250 ML 250 ML IV ONE (03:30)
[2020-09-01] MEDS ORDERED: ACETAMINOPHEN 325 MG TAB GT PRN (03:30)
[2020-09-01 04:30] LABS: BASOPHILS # (AUTO) 0.1 (0.0-0.1); BASOPHILS % 0.5 % (0.0-1.0); EOSINOPHILS # (AUTO) 0.5 (0.0-0.4); EOSINOPHILS % 3.3 % (0.0-6.0); LYMPHOCYTES # (AUTO) 1.8 (1.0-3.2); LYMPHOCYTES % 12.6 % (18.0-39.1); MEAN CORPUSCULAR HEMOGLOBIN 26.5 pg (28-32); MEAN CORPUSCULAR HGB CONC 33.3 g/dL (31-35); MEAN CORPUSCULAR VOLUME 79.6 fL (81-99); MONOCYTES # (AUTO) 0.7 (0.2-0.8); MONOCYTES % 4.9 % (4.4-11.3); NEUTROPHILS # (AUTO) 11.4 (2.1-6.9); NEUTROPHILS % 78.2 % (38.7-80.0); PLATELET COUNT 607 x10e3/uL (140-360); RED BLOOD COUNT 2.79 x10e6/uL (3.6-5.1); RED CELL DISTRIBUTION WIDTH 16.2 % (11.7-14.4)
[2020-09-01] MEDS ORDERED: IBUPROFEN 100 MG/5 ML SUSP PO ONE (04:30)
[2020-09-01 04:31] LABS: HEMOGLOBIN 7.4 g/dL (12.0-16.0)
[2020-09-01 04:32] LABS: HEMATOCRIT 22.2 % (34.2-44.1)
[2020-09-01 04:33] LABS: ANION GAP 12.6 mmol/L (8-16); BLOOD UREA NITROGEN 10 mg/dL (7-26); BUN/CREATININE RATIO 16 (6-25); CALCIUM 9.3 mg/dL (8.4-10.2); CARBON DIOXIDE 27 mmol/L (22-29); CHLORIDE 104 mmol/L (98-107); CREATININE, SERUM 0.62 mg/dL (0.57-1.11); EST GLOMERULAR FILTRATION RATE > 60 ML/MIN (60-); GLUCOSE 83 mg/dL (74-118); POTASSIUM 3.6 mmol/L (3.5-5.1); SODIUM 140 mmol/L (136-145)
[2020-09-01] MEDS ORDERED: MEROPENEM 1GM 100 ML IV ONE (04:58)
[2020-09-01] MEDS: MEROPENEM 1GRAM 1 GM in SODIUM CHLORIDE 0.9% 100 ML 100 ML IV SCH (04:58)
[2020-09-01] MEDS ORDERED: MUPIROCIN15 GM TOP (05:06)
[2020-09-01] MEDS ORDERED: IPRATROPIU0.2 MG/1 M NEB (05:06)
[2020-09-01] MEDS ORDERED: FAMOTIDINE20 MG PEG (05:06)
[2020-09-01] MEDS ORDERED: CLOBETASOL PROP15 G1 TOP (05:06)
[2020-09-01] MEDS ORDERED: DEXTROSE 50% SYRINGE 50 ML IV PRN (05:15)
[2020-09-01] MEDS: INSULIN REGULAR, HUMAN 100 UNIT/1 ML 3ML VIAL SQ SCH ×4 (07:37→20:27)
[2020-09-01] MEDS: BISACODYL 5 MG TAB EC PO SCH (11:00)
[2020-09-01] MEDS: ASPIRIN 81 MG CHEW TAB GT SCH (11:00)
[2020-09-01] MEDS ORDERED: IBUPROFEN 100 MG/5 ML SUSP ONE (13:50)
[2020-09-01] MEDS: MEROPENEM 1GM 100 ML IV SCH ×2 (15:50→20:34)
[2020-09-01] MEDS: IBUPROFEN 100 MG/5 ML SUSP PO PRN (16:00)
[2020-09-01] MEDS ORDERED: ACETAMINOPHEN 325 MG/10 ML UDC NG PRN (23:00)
[2020-09-01] MEDS ORDERED: ACETAMINOPHEN 325 MG/10 ML UDC ONE (23:06)
[2020-09-01] MEDS: ACETAMINOPHEN 325 MG/10 ML UDC PEG PRN (23:10)
[2020-09-02] MEDS: MEROPENEM 1GM 100 ML IV SCH ×3 (04:15→20:10)
[2020-09-02 05:33] LABS: BASOPHILS # (AUTO) 0.1 (0.0-0.1); BASOPHILS % 0.5 % (0.0-1.0); EOSINOPHILS # (AUTO) 0.6 (0.0-0.4); EOSINOPHILS % 6.2 % (0.0-6.0); LYMPHOCYTES # (AUTO) 1.9 (1.0-3.2); LYMPHOCYTES % 19.4 % (18.0-39.1); MEAN CORPUSCULAR HEMOGLOBIN 26.5 pg (28-32); MEAN CORPUSCULAR HGB CONC 33.3 g/dL (31-35); MEAN CORPUSCULAR VOLUME 79.6 fL (81-99); MONOCYTES # (AUTO) 0.5 (0.2-0.8); MONOCYTES % 4.8 % (4.4-11.3); NEUTROPHILS # (AUTO) 6.6 (2.1-6.9); NEUTROPHILS % 68.8 % (38.7-80.0); PLATELET COUNT 547 x10e3/uL (140-360); RED CELL DISTRIBUTION WIDTH 16.4 % (11.7-14.4)
[2020-09-02 05:40] LABS: HEMATOCRIT 18.3 % (34.2-44.1); HEMOGLOBIN 6.1 g/dL (12.0-16.0)
[2020-09-02 05:56] LABS: ALANINE AMINOTRANSFERASE 19 IU/L (0-55); ALBUMIN 2.1 g/dL (3.5-5.0); ALBUMIN/GLOBULIN RATIO 0.4 (0.8-2.0); ALKALINE PHOSPHATASE 115 IU/L (40-150); ANION GAP 11.3 mmol/L (8-16); BLOOD UREA NITROGEN 11 mg/dL (7-26); BUN/CREATININE RATIO 18 (6-25); CALCIUM 8.9 mg/dL (8.4-10.2); CARBON DIOXIDE 27 mmol/L (22-29); CHLORIDE 107 mmol/L (98-107); CREATININE, SERUM 0.62 mg/dL (0.57-1.11); EST GLOMERULAR FILTRATION RATE > 60 ML/MIN (60-); GLUCOSE 87 mg/dL (74-118); POTASSIUM 3.3 mmol/L (3.5-5.1); SODIUM 142 mmol/L (136-145)
[2020-09-02] MEDS: INSULIN REGULAR, HUMAN 100 UNIT/1 ML 3ML VIAL SQ SCH ×3 (09:35→18:31)
[2020-09-02] MEDS: BALSAM PERU/CASTOR OIL 60 GM OINT...G. TP SCH (09:49)
[2020-09-02] MEDS: BISACODYL 5 MG TAB EC PO SCH (09:49)
[2020-09-02] MEDS: ACETAMINOPHEN 325 MG/10 ML UDC PEG PRN (09:49)
[2020-09-02] MEDS: IBUPROFEN 100 MG/5 ML SUSP PO PRN (09:49)
[2020-09-02] MEDS: ASPIRIN 81 MG CHEW TAB GT SCH (09:49)
[2020-09-02] MEDS ORDERED: SODIUM CHLORIDE 0.9% 250ML 250 ML IV ONE (10:00)
[2020-09-02 10:44] LABS: ABG PCO2 35 mmHg (35-45); ABG PH 7.52 (7.35-7.45); ABG PO2 95 mmHg (80-105)
[2020-09-02 10:45] LABS: ABG HCO3 29 mmol/L (22-26); ABG TCO2 30
[2020-09-02] MEDS: ALBUTEROL/IPRATROPIUM 3 ML NEB NEB SCH ×2 (11:05→19:00)
[2020-09-02] MEDS: ACETYLCYSTEINE 200 MG/ML 4ML VIAL INH SCH ×2 (11:17→19:00)
[2020-09-02 11:40] LABS: % IRON SATURATION 22 % (15-50); IRON 33 ug/dL (50-170); TOTAL IRON BINDING CAPACITY 151 ug/dL (261-478); TRANSFERRIN 108 mg/dL (180-382)
[2020-09-02] MEDS: LISINOPRIL 2.5 MG TAB GT PRN (12:04)
[2020-09-02] MEDS ORDERED: SODIUM CHLORIDE 0.9% 250ML 250 ML ONE ×2 (18:24→22:51)
[2020-09-02] MEDS: ACETAMINOPHEN 650 MG SUPP PR PRN (23:15)
[2020-09-02] MEDS ORDERED: DIPHENHYDRAMINE HCL INJ 50 MG/ML VIAL IV PRN (23:45)
[2020-09-03] MEDS: MEROPENEM 1GM 100 ML IV SCH ×4 (01:01→20:32)
[2020-09-03] MEDS: ALBUTEROL/IPRATROPIUM 3 ML NEB NEB SCH ×4 (01:20→19:00)
[2020-09-03] MEDS: INSULIN REGULAR, HUMAN 100 UNIT/1 ML 3ML VIAL SQ SCH ×5 (04:17→20:07)
[2020-09-03 06:26] LABS: BASOPHILS % 0.3 % (0.0-1.0); EOSINOPHILS # (AUTO) 0.4 (0.0-0.4); EOSINOPHILS % 3.4 % (0.0-6.0); HEMATOCRIT 27.9 % (34.2-44.1); HEMOGLOBIN 9.2 g/dL (12.0-16.0); LYMPHOCYTES # (AUTO) 1.6 (1.0-3.2); LYMPHOCYTES % 12.8 % (18.0-39.1); MEAN CORPUSCULAR HEMOGLOBIN 26.3 pg (28-32); MEAN CORPUSCULAR VOLUME 79.7 fL (81-99); MONOCYTES # (AUTO) 0.6 (0.2-0.8); MONOCYTES % 4.7 % (4.4-11.3); NEUTROPHILS # (AUTO) 9.7 (2.1-6.9); PLATELET COUNT 555 x10e3/uL (140-360); RED CELL DISTRIBUTION WIDTH 16.2 % (11.7-14.4)
[2020-09-03 06:35] LABS: INR 1.2
[2020-09-03 06:43] LABS: ALANINE AMINOTRANSFERASE 16 IU/L (0-55); ALBUMIN 2.2 g/dL (3.5-5.0); ALBUMIN/GLOBULIN RATIO 0.4 (0.8-2.0); ALKALINE PHOSPHATASE 119 IU/L (40-150); ANION GAP 10.9 mmol/L (8-16); BLOOD UREA NITROGEN 8 mg/dL (7-26); BUN/CREATININE RATIO 13 (6-25); CALCIUM 8.8 mg/dL (8.4-10.2); CARBON DIOXIDE 25 mmol/L (22-29); CHLORIDE 110 mmol/L (98-107); CREATININE, SERUM 0.62 mg/dL (0.57-1.11); EST GLOMERULAR FILTRATION RATE > 60 ML/MIN (60-); GLUCOSE 101 mg/dL (74-118); SODIUM 143 mmol/L (136-145)
[2020-09-03 06:44] LABS: POTASSIUM 2.9 mmol/L (3.5-5.1)
[2020-09-03] MEDS: ACETYLCYSTEINE 200 MG/ML 4ML VIAL INH SCH ×3 (07:30→19:00)
[2020-09-03] MEDS: BISACODYL 5 MG TAB EC PO SCH (07:30)
[2020-09-03] MEDS: ACETAMINOPHEN 325 MG/10 ML UDC PEG PRN ×2 (07:42→14:42)
[2020-09-03] MEDS: PANTOPRAZOLE SODIUM 40 MG SUSPDR.PKT PO SCH (08:48)
[2020-09-03] MEDS ORDERED: POTASSIUM CHLORIDE 20 MEQ TAB CR PO STA (08:51)
[2020-09-03] MEDS ORDERED: POTASSIUM CHLORIDE 20 MEQ TAB CR PO PRN (09:00)
[2020-09-03] MEDS: BALSAM PERU/CASTOR OIL 60 GM OINT...G. TP SCH (10:03)
[2020-09-04] MEDS: ACETAMINOPHEN 325 MG/10 ML UDC PEG PRN ×2 (00:06→12:14)
[2020-09-04] MEDS: MEROPENEM 1GM 100 ML IV SCH ×3 (04:32→22:23)
[2020-09-04] MEDS: ACETYLCYSTEINE 200 MG/ML 4ML VIAL INH SCH ×2 (07:15→18:20)
[2020-09-04] MEDS: ALBUTEROL/IPRATROPIUM 3 ML NEB NEB SCH ×4 (07:15→18:15)
[2020-09-04 07:18] LABS: BASOPHILS # (AUTO) 0.1 (0.0-0.1); BASOPHILS % 0.5 % (0.0-1.0); EOSINOPHILS # (AUTO) 0.6 (0.0-0.4); EOSINOPHILS % 4.3 % (0.0-6.0); HEMATOCRIT 31.2 % (34.2-44.1); HEMOGLOBIN 10.4 g/dL (12.0-16.0); LYMPHOCYTES # (AUTO) 2.3 (1.0-3.2); LYMPHOCYTES % 17.8 % (18.0-39.1); MEAN CORPUSCULAR HEMOGLOBIN 26.5 pg (28-32); MEAN CORPUSCULAR HGB CONC 33.3 g/dL (31-35); MEAN CORPUSCULAR VOLUME 79.6 fL (81-99); MONOCYTES # (AUTO) 0.6 (0.2-0.8); NEUTROPHILS # (AUTO) 9.2 (2.1-6.9); NEUTROPHILS % 71.5 % (38.7-80.0); PLATELET COUNT 523 x10e3/uL (140-360); RED BLOOD COUNT 3.92 x10e6/uL (3.6-5.1); RED CELL DISTRIBUTION WIDTH 16.9 % (11.7-14.4)
[2020-09-04 07:21] LABS: ALANINE AMINOTRANSFERASE 19 IU/L (0-55); ALBUMIN 2.3 g/dL (3.5-5.0); ALBUMIN/GLOBULIN RATIO 0.4 (0.8-2.0); ALKALINE PHOSPHATASE 126 IU/L (40-150); ANION GAP 15.4 mmol/L (8-16); BLOOD UREA NITROGEN 12 mg/dL (7-26); BUN/CREATININE RATIO 18 (6-25); CALCIUM 9.1 mg/dL (8.4-10.2); CARBON DIOXIDE 22 mmol/L (22-29); CHLORIDE 115 mmol/L (98-107); CREATININE, SERUM 0.68 mg/dL (0.57-1.11); EST GLOMERULAR FILTRATION RATE > 60 ML/MIN (60-); GLUCOSE 90 mg/dL (74-118); POTASSIUM 5.4 mmol/L (3.5-5.1); SODIUM 147 mmol/L (136-145)
[2020-09-04] MEDS: INSULIN REGULAR, HUMAN 100 UNIT/1 ML 3ML VIAL SQ SCH ×4 (08:21→22:24)
[2020-09-04] MEDS: BISACODYL 5 MG TAB EC PO SCH (08:27)
[2020-09-04] MEDS: BALSAM PERU/CASTOR OIL 60 GM OINT...G. TP SCH (09:18)
[2020-09-04] MEDS: PANTOPRAZOLE SODIUM 40 MG SUSPDR.PKT PO SCH (11:58)
[2020-09-04] MEDS: LISINOPRIL 2.5 MG TAB GT PRN (12:13)
[2020-09-04] MEDS ORDERED: VANCOMYCIN 1GM/NS 250 ML 250 ML IV ONE ×2 (12:45→16:45)
[2020-09-05] MEDS: ALBUTEROL/IPRATROPIUM 3 ML NEB NEB SCH ×3 (02:05→14:28)
[2020-09-05] MEDS: MEROPENEM 1GM 100 ML IV SCH ×2 (05:38→12:29)
[2020-09-05] MEDS: ACETYLCYSTEINE 200 MG/ML 4ML VIAL INH SCH (06:35)
[2020-09-05] MEDS: INSULIN REGULAR, HUMAN 100 UNIT/1 ML 3ML VIAL SQ SCH ×2 (06:45→12:06)
[2020-09-05 07:18] LABS: BASOPHILS # (AUTO) 0.1 (0.0-0.1); BASOPHILS % 0.5 % (0.0-1.0); EOSINOPHILS # (AUTO) 0.6 (0.0-0.4); EOSINOPHILS % 5.7 % (0.0-6.0); HEMATOCRIT 31.3 % (34.2-44.1); HEMOGLOBIN 10.2 g/dL (12.0-16.0); LYMPHOCYTES # (AUTO) 2.7 (1.0-3.2); LYMPHOCYTES % 27.3 % (18.0-39.1); MEAN CORPUSCULAR HEMOGLOBIN 26.2 pg (28-32); MEAN CORPUSCULAR HGB CONC 32.6 g/dL (31-35); MEAN CORPUSCULAR VOLUME 80.5 fL (81-99); MONOCYTES # (AUTO) 0.5 (0.2-0.8); MONOCYTES % 5.5 % (4.4-11.3); NEUTROPHILS % 60.8 % (38.7-80.0); PLATELET COUNT 597 x10e3/uL (140-360); RED BLOOD COUNT 3.89 x10e6/uL (3.6-5.1); RED CELL DISTRIBUTION WIDTH 17.4 % (11.7-14.4)
[2020-09-05 07:26] LABS: ALANINE AMINOTRANSFERASE 19 IU/L (0-55); ALBUMIN 2.3 g/dL (3.5-5.0); ALBUMIN/GLOBULIN RATIO 0.4 (0.8-2.0); ALKALINE PHOSPHATASE 115 IU/L (40-150); ANION GAP 11.9 mmol/L (8-16); BLOOD UREA NITROGEN 11 mg/dL (7-26); BUN/CREATININE RATIO 17 (6-25); CALCIUM 9.4 mg/dL (8.4-10.2); CARBON DIOXIDE 24 mmol/L (22-29); CHLORIDE 113 mmol/L (98-107); CREATININE, SERUM 0.65 mg/dL (0.57-1.11); EST GLOMERULAR FILTRATION RATE > 60 ML/MIN (60-); GLUCOSE 96 mg/dL (74-118); POTASSIUM 3.9 mmol/L (3.5-5.1); SODIUM 145 mmol/L (136-145)
[2020-09-05 10:08] LABS: ABG HCO3 25 mmol/L (22-26); ABG PCO2 26 mmHg (35-45); ABG PO2 155 mmHg (80-105); ABG TCO2 26
[2020-09-05] MEDS: PANTOPRAZOLE SODIUM 40 MG SUSPDR.PKT PO SCH (12:28)
[2020-09-05] MEDS: BISACODYL 5 MG TAB EC PO SCH (12:29)
[2020-09-05] MEDS: BALSAM PERU/CASTOR OIL 60 GM OINT...G. TP SCH (12:29)
[2020-09-05] MEDS: ASPIRIN 81 MG CHEW TAB GT SCH (12:29)
[2020-09-05] MEDS ORDERED: PANTOPRAZOLE 40 MG 10ML VIAL ONE (12:32)
== END 2020-09-05 16:24 | DRG 871 ==
LOC: ER 19:13 → ERHOLD 09-01 02:10
PROC: 30233N1 Transfusion of Nonautologous Red Blood Cells into Peripheral Vein, Percutaneous Approach (ICD-10-PCS; principal; 2020-09-02)
DX: A41.9 Sepsis, unspecified organism (principal); L89.154 Pressure ulcer of sacral region, stage 4; J18.9 Pneumonia, unspecified organism; J96.10 Chronic respiratory failure, unspecified whether with hypoxia or hypercapnia; E44.0 Moderate protein-calorie malnutrition; N39.0 Urinary tract infection, site not specified; R64 Cachexia; Z99.11 Dependence on respirator [ventilator] status; I69.351 Hemiplegia and hemiparesis following cerebral infarction affecting right dominant side; I12.9 Hypertensive chronic kidney disease with stage 1 through stage 4 chronic kidney disease, or unspecified chronic kidney disease; N18.9 Chronic kidney disease, unspecified; R65.20 Severe sepsis without septic shock; Z93.0 Tracheostomy status; Z93.1 Gastrostomy status; Z74.01 Bed confinement status; D63.8 Anemia in other chronic diseases classified elsewhere; E87.6 Hypokalemia; Z68.27 Body mass index [BMI] 27.0-27.9, adult
CPT/HCPCS: 36415; 36569; 36600; 71045; 80048; 80053; 81001; 82805; 82948; 83540; 83605; 83880; 84466; 84484; 85025; 85610; 86850; 86870; 86880; 86900; 86905; 86920; 86922; 87040; 87070; 87071; 87075; 87186; 87205; 87400; 93005; 94002; 94003; 94640; 99001; 99251; 99285; J1200; J2060; J2185; J2543; J3370; J7050; J7121; P9016; U0002

== ENCOUNTER 2020-09-17 06:00 | Emergency (ER) | payer OTHER ==
[~2020-09-17] VITALS: Ht 152.4 cm; Wt 64.0 kg
[~2020-09-17 06:00] MED LIST changes: +CLOBETASOL PROP15 G1 TOP; +FAMOTIDINE20 MG PEG; +MUPIROCIN15 GM TOP
== END 2020-09-17 08:30 | disposition home or self-care (01) ==
LOC: ER 06:11
DX: T17.890A Other foreign object in other parts of respiratory tract causing asphyxiation, initial encounter (principal); R06.02 Shortness of breath; I12.9 Hypertensive chronic kidney disease with stage 1 through stage 4 chronic kidney disease, or unspecified chronic kidney disease; N18.9 Chronic kidney disease, unspecified; Z86.73 Personal history of transient ischemic attack (TIA), and cerebral infarction without residual deficits
CPT/HCPCS: 99283